=== PATIENT | female | born 1960 | race Two or more races ===

== ENCOUNTER 2021-02-28 13:50 | Outpatient (REF) | payer MEDICAID, SELFPAY ==
--- NOTE | ~2021-02-28 | MM_ITS ---
EXAMINATION: MM SCREENING DIGITAL BREAST TOMOSYNTHESIS, BILATERAL CLINICAL INFORMATION: Screening. Asymptomatic. The lifetime risk of breast cancer based on the Tyrer-Cuzick Model is 5.2%. COMPARISON: Mammography: August 31, 2017 and studies dating back to April 14, 2010 TECHNIQUE: Digital breast tomosynthesis is performed in both the craniocaudal and mediolateral oblique views along with computer-aided detection (CAD). Synthesized 2D images are generated from the tomosynthesis. FINDINGS: The breasts are heterogeneously dense, which may obscure small masses (ACR BI-RADS breast composition Category c). There is a stable parenchymal pattern within the right breast. Within the upper outer aspect of the left breast there is a grouping of calcifications for which further evaluation with spot magnification views in craniocaudal and 90 degree mediolateral views is recommended. MM/MM tomosynthesis screening BI IMPRESSION: Left breast calcifications for further evaluation as described. ASSESSMENT: BI-RADS 0: Incomplete - Need Additional Imaging Evaluation RECOMMENDATION: 1. Additional views of the left breast 2. Targeted ultrasound if warranted after review of the additional views. 3. Radiology department staff will contact the patient for additional imaging. This patient's information was entered into a reminder system with a target due date for their next mammogram.
== END 2021-02-28 13:51 | disposition home or self-care (01) ==
LOC: HO.MAMMO 13:50
PROVIDERS: PCP Internal Medicine; Visit Provider Internal Medicine
DX: Z12.31 Encounter for screening mammogram for malignant neoplasm of breast (principal)
CPT/HCPCS: 77063; 77067

== ENCOUNTER 2021-03-07 10:58 | Outpatient (REF) | payer MEDICAID, SELFPAY ==
--- NOTE | ~2021-03-07 | MM_ITS ---
EXAMINATION: MM DIAGNOSTIC DIGITAL MAMMOGRAPHY, LEFT CLINICAL INFORMATION: Calcifications. COMPARISON: Mammography: 02/28/2021 and studies dating back to 10/19/2011 TECHNIQUE: Digital mammography is performed in the following views: Spot magnification views of the left breast in craniocaudal and 90-degree mediolateral views. FINDINGS: The breasts are heterogeneously dense, which may obscure small masses (ACR BI-RADS breast composition Category c). The grouping of calcifications within the upper outer aspect of the left breast have indeterminate features, and stereotactic core biopsy is recommended. Results are discussed with the patient at time of visit. [facility] patient navigator called the above recommendation to the referring provider's office, [place]. MM/MM added views LT IMPRESSION: Indeterminate grouping of calcifications about the upper outer aspect of the left breast for which stereotactic core biopsy is recommended. ASSESSMENT: BI-RADS 4: Suspicious. RECOMMENDATION: Stereotactic core biopsy left breast calcifications. This patient's information was entered into a reminder system with a target due date for their next mammogram.
== END 2021-03-07 10:59 | disposition home or self-care (01) ==
LOC: HO.MAMMO 10:58
PROVIDERS: Visit Provider Internal Medicine
DX: R92.1 Mammographic calcification found on diagnostic imaging of breast (principal)
CPT/HCPCS: 77065

== ENCOUNTER 2021-03-13 09:11 | Outpatient (REF) | payer MEDICAID, SELFPAY ==
--- NOTE | ~2021-03-13 | MM_ITS ---
EXAMINATION: STEREOTACTIC TOMOSYNTHESIS-GUIDED VACUUM-ASSISTED BREAST BIOPSY, LEFT SPECIMEN RADIOGRAPH, LEFT POST PROCEDURE DIGITAL MAMMOGRAM, LEFT CLINICAL INFORMATION: Grouped coarse calcifications mid 1:00 left breast. COMPARISON: Mammography 03/07/2021, 02/28/2021, 08/31/2017. TECHNIQUE/PROCEDURE: Informed consent was obtained from the patient after discussion of the benefits, risks, and alternatives to biopsy today. Patient appeared to understand. Gave opportunity for questions. Patient signed consent form. BIOPSY TABLE: [employer]one Biopsy System. LESION: Grouped coarse calcifications mid 1:00 position, suspect fibroadenomatous. LOCAL ANESTHESIA: 5 mL 1% lidocaine; 10 mL 1% lidocaine with epinephrine. DERMATOTOMY: Single skin rodirgo dermatotomy performed. NEEDLE: [employer] 9-gauge vacuum assisted core biopsy device. APPROACH: craniocaudal. TARGETING: Digital breast tomosynthesis used for targeting. CORES: 6. CLIP: [employer] T-shaped marker. SPECIMEN RADIOGRAPH: Specimen radiograph is taken in separate room using digital mammography. The index calcifications are in the excised cores. There are at least 10 calcifications in the cores. POST PROCEDURE UNILATERAL DIGITAL MAMMOGRAM: The post biopsy mammogram is performed in separate room using separate digital mammography equipment from the biopsy procedure. CC and ML views are obtained. There are scattered areas of fibroglandular density (breast composition category: b). The clip marker is in position. The calcifications are markedly decreased at the biopsy site. No gross hematoma. The patient tolerated the procedure well. No immediate complications. Home instructions reviewed with the patient. Final pathology results are pending. MM/MM stereotactic biopsy LT IMPRESSION: 1. Digital tomosynthesis-guided core biopsy left breast with clip placement. 2. Specimen radiograph taken and post procedure mammogram. There is satisfactory positioning of the biopsy clip. 3. Final pathology results pending. An addendum report will be issued.
== END 2021-03-13 09:12 | disposition home or self-care (01) ==
LOC: HO.MAMMO 09:11
PROVIDERS: PCP Internal Medicine; Visit Provider Surgery
DX: R92.1 Mammographic calcification found on diagnostic imaging of breast (principal)
CPT/HCPCS: 19081; 88305; 99202; A4648

== ENCOUNTER 2022-08-28 11:57 | Outpatient (REF) | payer MEDICAID, SELFPAY ==
--- NOTE | ~2022-08-28 | XR_ITS ---
EXAMINATION: XR KNEE, RIGHT CLINICAL INFORMATION: Right knee pain COMPARISON: None available. TECHNIQUE: Four views of the right knee. FINDINGS: No acute fracture or dislocation. There is chondrocalcinosis of the bilateral tibiofemoral compartments which may reflect CPPD arthropathy. No large effusion. XR/XR knee RT 4V IMPRESSION: Chondrocalcinosis of the bilateral tibiofemoral compartments which may reflect CPPD arthropathy. No large effusion. No acute fracture or dislocation.
--- NOTE | ~2022-08-28 | XR_ITS ---
EXAMINATION: XR HAND, RIGHT CLINICAL INFORMATION: Right hand pain COMPARISON: None available. TECHNIQUE: PA, lateral, and oblique views of the right hand. FINDINGS: No acute fracture or dislocation. Degenerative changes of the first IP joint with joint space narrowing and osteophytosis. XR/XR hand RT min 3V IMPRESSION: No acute fracture or dislocation. Degenerative changes of the first IP joint.
== END 2022-08-28 11:58 | disposition home or self-care (01) ==
LOC: HO.XRAY 11:57
PROVIDERS: PCP Internal Medicine; Visit Provider Internal Medicine
DX: Z13.89 Encounter for screening for other disorder (principal)
CPT/HCPCS: 73130; 73564

== ENCOUNTER 2022-09-18 09:51 | Outpatient (REF) | payer MEDICAID, SELFPAY ==
--- NOTE | ~2022-09-18 | US_ITS ---
EXAMINATION: US ABDOMEN LIMITED CLINICAL INFORMATION: Elevated LFTs. COMPARISON: Ultrasound abdomen 07/11/2007 and 03/18/2007. TECHNIQUE: Real-time imaging of the right upper quadrant abdominal viscera. FINDINGS: PANCREAS: Normal. LIVER: Enlarged measuring 19.5 cm in length. The liver contour is normal. Increased parenchymal echogenicity. No focal hepatic lesion. There is no intrahepatic biliary duct dilatation seen. GALLBLADDER: Normal. The gallbladder is physiologically distended without evidence of stones, sludge, polyps, wall thickening or pericholecystic fluid. COMMON BILE DUCT: Normal in caliber measuring 0.4 cm in diameter. RIGHT KIDNEY: Normal. No hydronephrosis. No renal calculi or focal parenchymal lesions. The kidney measures 11.2 cm in maximum dimension. FREE FLUID: None. US/US abdomen limited IMPRESSION: Hepatomegaly with increased parenchymal echogenicity which is nonspecific but could be seen in the setting of hepatic steatosis or hepatocellular disease.
== END 2022-09-18 09:52 | disposition home or self-care (01) ==
LOC: HO.HMGCX 09:51
PROVIDERS: PCP Internal Medicine; Visit Provider Internal Medicine
DX: R79.89 Other specified abnormal findings of blood chemistry (principal)
CPT/HCPCS: 76705

== ENCOUNTER 2022-10-23 13:04 | Outpatient (REF) | payer MEDICAID, SELFPAY ==
--- NOTE | ~2022-10-23 | MM_ITS ---
EXAMINATION: MM SCREENING DIGITAL BREAST TOMOSYNTHESIS, BILATERAL CLINICAL INFORMATION: Screening. Asymptomatic. Benign left stereotactic biopsy 03/13/2021 (fibroadenomatous change and calcifications. No atypia or malignancy). The lifetime risk of breast cancer based on the Tyrer-Cuzick Model is 5%. COMPARISON: Mammography: 03/13/2021, 03/07/2021, 02/28/2021, 08/31/2017, 09/12/2013 TECHNIQUE: Digital breast tomosynthesis is performed in both the craniocaudal and mediolateral oblique views along with computer-aided detection (CAD). Synthesized 2D images are generated from the tomosynthesis. FINDINGS: The breasts are heterogeneously dense, which may obscure small masses (ACR BI-RADS breast composition Category c). There are no significant masses, abnormal calcifications, or other abnormalities. Parenchymal pattern is similar to prior studies. There is no developing density or architectural abnormality. There is biopsy clip marker mid upper outer left breast with substantially decreased adjacent calcifications consistent with the biopsy. The axilla and skin contours are unremarkable. No significant changes. MM/MM tomosynthesis screening BI IMPRESSION: No mammographic evidence of malignancy. ASSESSMENT: BI-RADS 2: Benign RECOMMENDATION: Routine annual mammography screening. This patient's information was entered into a reminder system with a target due date for their next mammogram.
== END 2022-10-23 13:05 | disposition home or self-care (01) ==
LOC: HO.MAMMO 13:04
PROVIDERS: PCP Internal Medicine; Visit Provider Internal Medicine
DX: Z12.31 Encounter for screening mammogram for malignant neoplasm of breast (principal)
CPT/HCPCS: 77063; 77067

== ENCOUNTER 2023-08-24 11:45 | Outpatient (REF) | payer MEDICAID, SELFPAY ==
[2023-08-24 13:12] LABS: MANUAL DIFF FLAG NO
[2023-08-24 13:32] LABS: Basophils Percent Auto 0.5 % (0-2); Eosinophils Percent Auto 0.5 % (0-4); Hematocrit 44.9 % (37.0-47.0); Hemoglobin 15.1 g/dl (12.0-16.0); Imm Gran Abs Auto 0.03 X10*3/uL (0.00-0.03); Imm Gran Pct Auto 0.4 % (0.0-0.4); Lymphocytes Absolute Auto 2.5 X10*3/uL (1.2-4.9); Lymphocytes Percent Auto 32.8 % (20-40); Mean Corpuscular HGB Conc 33.6 g/dl (31.0-35.0); Mean Corpuscular Hemoglobin 30.3 pg (27.0-33.0); Mean Platelet Volume 11.4 fL (9.4-12.3); Monocytes Absolute Auto 0.7 X10*3/uL (0.1-1.2); Monocytes Percent Auto 9.1 % (2-11); Neutrophils Absolute Auto 4.2 x10*3/uL (2.0-8.3); Neutrophils Percent Auto 56.7 % (45-73); Platelet Count 192 X10*3/uL (160-400); Red Blood Count 4.99 X10*6/uL (4.20-5.50); Red Cell Distribution Width 12.3 % (11.0-16.0); White Blood Count 7.5 X10*3/uL (4.8-10.8)
[2023-08-24 14:10] LABS: Alanine Aminotransferase 137 U/L (0-31); Albumin Level 4.2 g/dL (3.5-5.0); Alkaline Phosphatase 149 U/L (39-117); Anion Gap 14 (12-20); Aspartate Amino Transferase 113 U/L (5-31); Bilirubin Direct 0.3 mg/dL (0.0-0.5); Bilirubin Total 0.8 mg/dL (0.0-1.0); Blood Urea Nitrogen 15 mg/dL (9-16); Calcium 10.8 mg/dL (8.4-10.2); Carbon Dioxide 28 mmol/L (22-29); Chloride 100 mmol/L (96-108); Cholesterol 132 mg/dL (<200); Estimated Glomerular Filt Rate > 60; Glucose Random 203 mg/dL (60-115); HDL Cholesterol 34 mg/dL (>40); LDL Cholesterol Calculated 80 mg/dL (<100); Potassium 3.6 mmol/L (3.3-5.1); Sodium 138 mmol/L (135-145); TSH reflex Free T4 1.22 uIU/mL (0.32-4.0); Total Protein 8.4 g/dL (6.5-8.0); Triglycerides 92 mg/dL (<150)
[2023-08-24 14:25] LABS: Reflex LDLD? No
== END 2023-08-24 11:46 | disposition home or self-care (01) ==
LOC: HO.HHCL 11:45
PROVIDERS: Visit Provider Internal Medicine
DX: I10 Essential (primary) hypertension (principal); R79.89 Other specified abnormal findings of blood chemistry
CPT/HCPCS: 36415; 80048; 80061; 80076; 84443; 85025

== ENCOUNTER 2023-09-08 11:10 | Outpatient (REF) | payer MEDICAID, SELFPAY ==
[2023-09-08 13:40] LABS: Parathyroid Hormone Intact 46.3 pg/mL (8.7-77.1)
[2023-09-08 13:49] LABS: Rheumatoid Factor < 13.0 IU/mL (<15.0)
[2023-09-08 14:04] LABS: Erythrocyte Sedimentation Rate 19 MM/HR (0-20)
[2023-09-08 14:18] LABS: C Reactive Protein 0.38 mg/dL (< or = 0.50); Ferritin 975 ng/mL (10-250); Uric Acid 3.3 mg/dL (2.4-5.7)
[2023-09-09 10:48] LABS: Thyroglobulin Antibodies <1 IU/mL (< or = 1); Thyroid Peroxidase Antibodies 2 IU/mL (<9)
[2023-09-09 14:38] LABS: Cyclic Citrullinated Peptide <16 UNITS
[2023-09-09 19:19] LABS: Transferrin 251 mg/dL (188-341)
[2023-09-09 20:49] LABS: SM/Ribonucleoprotein Ab <1.0 NEG AI (<1.0 NEG); Smith Protein <1.0 NEG AI (<1.0 NEG)
[2023-09-09 22:49] LABS: Prot Elec - Albumin 4.2 g/dL (3.8-4.8); Prot Elec - Alpha1 0.3 g/dL (0.2-0.3); Prot Elec - Alpha2 0.8 g/dL (0.5-0.9); Prot Elec - Beta 1 0.5 g/dL (0.4-0.6); Prot Elec - Beta 2 0.6 g/dL (0.2-0.5); Prot Elec - Gamma 1.6 g/dL (0.8-1.7); Prot Elec - Total Protein 8.1 g/dL (6.1-8.1)
[2023-09-10 09:43] LABS: Mitochondrial Antibodies NEGATIVE (NEGATIVE)
[2023-09-10 11:58] LABS: IgA 572 mg/dL (70-320); IgG 1921 mg/dL (600-1540); IgM 95 mg/dL (50-300)
[2023-09-13 06:13] LABS: Smooth Muscle Antibody 22 U (<20)
[2023-09-13 12:03] LABS: Anti Nuclear Antibody Pattern Nuclear, Homogeneous; Anti Nuclear Antibody Screen POSITIVE (NEGATIVE); Anti Nuclear Antibody Titer 1:40 titer
== END 2023-09-08 11:11 | disposition home or self-care (01) ==
LOC: HO.LAB 11:10
PROVIDERS: PCP Internal Medicine; Visit Provider Nurse Practitioner Family
DX: M11.261 Other chondrocalcinosis, right knee (principal); M25.561 Pain in right knee; R79.89 Other specified abnormal findings of blood chemistry; G89.29 Other chronic pain
CPT/HCPCS: 36415; 82550; 82728; 82784; 83970; 84165; 84466; 84550; 85652; 86015; 86038; 86039; 86140; 86200; 86235; 86334; 86376; 86381; 86431; 86800; 99212

== ENCOUNTER 2023-09-08 11:10 | Outpatient (AMB) | payer MEDICAID, SELFPAY ==
--- NOTE | 2023-09-08 11:12 | MHC.OFFVIS ---
Intake Vital Signs 09/08/23 11:13 Height 5 ft 2 in Weight 158 lb 4.67 oz BMI 28.9 BP 134/82 Blood Pressure Location Rt brachial Position Sitting Pulse 105 H Pulse Source Pulse Oximeter Temp 97 F Temp Source Skin Pulse Oximetry (%) 98 Oxygen Delivery Method Room Air Intake Visit Reasons: Right knee pain/LVM Intake Note: New patient, externally referred by Dr. Skinner at [facility], presents today for consult on chronic right knee pain. [employer]eles[employer] Advisor Required: No Accompanied by: Self / Same As Patient Allergies aspirin Allergy (Unknown, Verified 09/08/23 11:17) Gastrointestinal Upset HPI HPI Comments History of Present Illness Details Ms. Morrow, 62 yoF presents,on referral from her PCP, for evaluation of chronic right knee pain. The patient is very active and has no other complaints. She had an XRAY which shows chondrocalcinosis. She denies red, warm swollen joints, uveitiis, recent infection, UTI, PsO. She denies other s/s of CTD. [facility] Medical History (Updated 09/15/23 @ 23:38 by ALEN Enriquez-) Chondrocalcinosis of right knee Right anterior knee pain Elevated LFTs Pap 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 Persistent depressive disorder Essential (primary) hypertension Chronic pain of right knee Hypertension Social History Alcohol intake: current Alcohol intake frequency: holidays/special occasions only Patient Tobacco Use Status: Never used Tobacco Female Reproductive History Menstrual Age of Menarche: 15 Review of Systems Const All systems reviewed & are unremarkable except as noted in HPI and below Physical Exam Vital Signs: Last Vital Signs Temp 97 F 09/08/23 11:13 Pulse 105 H 09/08/23 11:13 BP 134/82 09/08/23 11:13 Pulse Ox 98 09/08/23 11:13 Oxygen Delivery Method Room Air 09/08/23 11:13 BMI result Body Mass Index 28.9 APPEARANCE: Patient in no acute distress EYES no redness, normal EARS:? External ear normal. NOSE/SINUS:? Airflow through both nares, no nasal discharge, no bleeding THROAT:? Oral mucosa moist, no ulcerations NECK:? No thyromegaly or masses, no adenopathy, trachea midline. HEART:? Regular rhythm, S1-S2 heard, no murmurs, rubs or gallops. LUNG:? Clear to percussion and auscultation EXTREMITIES:? No edema, no calf tenderness, normal peripheral pulses. NEURO:? Oriented and alert x3.? No focal weakness.? Reflexes symmetric.? Gait normal. SKIN:? There are no skin lesions evident. No objective signs of Raynaud's phenomenon. JOINT EXAM: Cervical Spine:.? Full range of motion without pain; no tenderness. Thoracic Spine:.? No scoliosis.? No tenderness on palpation. Lumbar Spine:.? Alignment normal.? Full range of motion without pain, no tenderness. Chest Wall:.? No tenderness, swelling, increased warmth or erythema. Hands:.? Normal pain-free range of motion without tenderness, swelling, increased warmth or erythema. Able to make a full fist and has a good automotive manufacturer strength. Wrists:.? Normal pain-free range of motion without tenderness, swelling, increased warmth or erythema. Elbows:. Normal pain-free range of motion without tenderness, swelling, increased warmth or erythema. Shoulders:.?? Full range of motion without pain. No tenderness, weakness, swelling, increased warmth or erythema. Hips:.? Full range of motion without pain. Hip bursa:.? No tenderness. Knees:.?? Normal pain-free range of motion without tenderness, swelling, increased warmth or erythema.? There is no effusion or crepitation. Mild tenderness to Left knee joint medial line on palpation. no crepitus Ankles:.? Normal pain-free range of motion without tenderness, swelling, increased warmth or erythema. Feet:.? Normal pain-free range of motion without tenderness, swelling, increased warmth or erythema. Tender points:? No tenderness to digital palpation at the occiput, trapezius, second rib, lateral epicondyle, knees, greater trochanter and gluteal area bilaterally. Assessment & Plan Assessment & Plan (1) Right anterior knee pain: Code(s): M25.561 - Pain in right knee (2) Chondrocalcinosis of right knee: Code(s): M11.261 - Other chondrocalcinosis, right knee (3) Elevated LFTs: Code(s): R79.89 - Other specified abnormal findings of blood chemistry Plan The patient says her knees mainly hurt when she climbs stairs. She has received steroid injections but the pain returns within 1 week. I discussed with the patient that per imaging there is possibly Psuedogout in her knees - calcium crystal deposits that can irritate the knee and cause pain. She denies the typical gout-like features of erythema, warmth and swelling. CPPD is a challenge to treat and usually evidenced by a flare. Prednisone and colchicine can be used to treat flares, more successes with prednisone. No OA on imaging. I will do further evaluation with labs to rule out other inflammatory processes. CPPD can also be seen in the context of iron disorders, so I will obtain the ferritin levels. The patient also has elevated liver enzymes. She says she is not aware. We will recheck. I spent 45 minutes reviewing history, evaluating patient, and documenting Orders: Orders Anti Extractable Nuclear Ag 09/08/23 M25.561 - Pain in right knee C Reactive Protein 09/08/23 M25.561 - Pain in right knee Creatine Kinase Total 09/08/23 M25.561 - Pain in right knee Erythrocyte Sedimentation Rate 09/08/23 M25.561 - Pain in right knee Immunofixation Pnl, Serum 09/08/23 M25.561 - Pain in right knee Protein Electrophoresis, Serum 09/08/23 M25.561 - Pain in right knee Thyroglobulin Antibodies 09/08/23 M25.561 - Pain in right knee Parathyroid Hormone Intact 09/08/23 M25.561 - Pain in right knee Rheumatoid Factor 09/08/23 M25.561 - Pain in right knee Cyclic Citrullinated Peptide 09/08/23 M25.561 - Pain in right knee PT Evaluation and Treatment 09/08/23 M25.561 - Pain in right knee GABRIELLA Reflex Titer and Pattern 09/08/23 M25.561 - Pain in right knee Immunoglobulins,IgG IgA IgM 09/08/23 M25.561 - Pain in right knee Uric Acid 09/08/23 M25.561 - Pain in right knee Thyroid Peroxidase Antibodies 09/08/23 M25.561 - Pain in right knee Mitochondrial Antibody 09/08/23 M25.561 - Pain in right knee Smooth Muscle Antibody 09/08/23 M25.561 - Pain in right knee Ferritin 09/08/23 M11.261 - Other chondrocalcinosis, right knee Coding Level of Care Code New Pt Level 4 (94185) Diagnoses Right anterior knee pain M25.561 Chondrocalcinosis of right knee M11.261 Elevated LFTs R79.89
[2023-09-08 11:13] VITALS: BP 134/82; PULSE 105; TEMP 36.1; O2SAT 98; BMI 28.9
== END 2023-09-08 11:52 | disposition home or self-care (01) ==
PROVIDERS: PCP Internal Medicine; Visit Provider Nurse Practitioner Family
DX: M25.561 Pain in right knee (principal); M11.261 Other chondrocalcinosis, right knee; R79.89 Other specified abnormal findings of blood chemistry
CPT/HCPCS: 99204

== ENCOUNTER 2023-12-03 12:47 | Outpatient (REF) | payer MEDICAID, SELFPAY ==
[2023-12-03 16:55] LABS: Anion Gap 18 (12-20); Blood Urea Nitrogen 16 mg/dL (9-16); Calcium 10.4 mg/dL (8.4-10.2); Carbon Dioxide 24 mmol/L (22-29); Chloride 95 mmol/L (96-108); Estimated Glomerular Filt Rate > 60; Magnesium 2.1 mg/dL (1.6-2.6); Phosphorus 2.8 mg/dL (2.7-4.5); Potassium 4.5 mmol/L (3.3-5.1); Sodium 132 mmol/L (135-145)
[2023-12-03 18:11] LABS: Glucose Random 627 mg/dL (60-115)
== END 2023-12-03 12:48 | disposition home or self-care (01) ==
LOC: HO.HHCL 12:47
PROVIDERS: Visit Provider Internal Medicine
DX: R25.2 Cramp and spasm (principal)
CPT/HCPCS: 36415; 80048; 83735; 84100

== ENCOUNTER 2023-12-04 10:11 | Outpatient (REF) | payer MEDICAID, SELFPAY | END 2023-12-04 10:12 | disposition home or self-care (01) | LOC: HO.LAB 10:11 | PROVIDERS: Absent Provider Internal Medicine; PCP Internal Medicine; Visit Provider Family Medicine | DX: Z13.89 Encounter for screening for other disorder (principal) ==

== ENCOUNTER 2023-12-04 11:01 | Emergency (ER) | payer MEDICAID, SELFPAY ==
[2023-12-04 11:07] VITALS: BP 172/102; PULSE 85; RESP 18; TEMP 36.6; O2SAT 98; BMI 25.1
--- NOTE | 2023-12-04 11:07 | ED.GENADULT ---
HPI - General Adult General Chief complaint: Recheck/Abnormal Lab/Rx Stated complaint: high bs Time Seen by Provider: 12/04/23 11:39 Source: patient and family (Daughter) Mode of arrival: ambulatory Limitations: no limitations History of Present Illness ED Provider: DR. Rosales HPI narrative: A 62-year-old female with no known history of DM had a routine blood workup at her primary doctor and found to be hyperglycemic and patient was told to come to the ED. Patient currently not taking medication for diabetes, been having increased thirst increased frequency urination without dysuria or frequency urination, patient also lost 30 lb unintentionally over the past few months. Patient otherwise has no complaints. Related Data Home Medications ?Medication ?Instructions ?Recorded ?Confirmed hydrochlorothiazide 25 mg tablet 25 mg PO DAILY 03/13/21 lisinopril 40 mg tablet 40 mg PO DAILY 03/13/21 naproxen 500 mg tablet,delayed 500 mg PO BID 03/13/21 release (EC-Naproxen) Previous Rx's ?Medication ?Instructions ?Recorded metformin 500 mg tablet 500 mg PO BID #20 tabs 12/04/23 Allergies Allergy/AdvReac Type Severity Reaction Status Date / Time aspirin Allergy Unknown Gastrointestinal Verified 12/04/23 11:09 Upset Review of Systems Review of Systems: All other systems are reviewed and are negative Constitutional: Reports as per HPI and Reports no additional constitutional complaints Eyes: Reports as per HPI and Reports no additional eye complaints Reports system reviewed and no additional complaints, except as documented Cardiovascular: Reports as per HPI and Reports no additional cardiovascular complaints Respiratory: Reports as per HPI and Reports no additional respiratory complaints Gastrointestinal: Reports as per HPI and Reports no additional gastrointestinal complaints Genitourinary: Reports no additional female genitourinary complaints Musculoskeletal: Reports no additional musculoskeletal complaints Skin/Breast: Reports system reviewed and no additional complaints, except as docu Psychiatric: Reports no additional psychiatric complaints Endocrine: Reports no additional endocrine complaints Hematologic/Lymphatic: Reports no additional hematologic/lymphatic complaints Allergic/Immunologic: Reports no additional allergic/immunologic complaints Reports system reviewed and no additional complaints, except as documented and Reports Abnormal speech present [facility] Past Medical History Medical History Chondrocalcinosis of right knee Right anterior knee pain Elevated LFTs Pap 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 Persistent depressive disorder Essential (primary) hypertension Chronic pain of right knee Hypertension Social History Social History Alcohol intake: current Alcohol intake frequency: does not drink Patient Tobacco Use Status: Never used Tobacco Smoked in Last 30 Days: No Use of substances other than those prescribed or required for medical reasons: No Substance Use Type: Marijuana Substance Use Frequency: Occasionally Last Used Substance: Weeks (ago) Advance Directives: No Advance Directives Information Provided: No Do you have a plan to hurt others: No Plan Physical Exam ED Vital Signs: Vital Signs - 24 hr 12/04/23 11:07 12/04/23 12:16 Temperature 98 F 98.6 F Pulse Rate 85 80 Respiratory Rate 18 18 Blood Pressure 172/102 H 167/87 H Pulse Oximetry 98 98 Oxygen Delivery Method Room Air BMI result Body Mass Index 25.1 Vital signs have been reviewed and appear to be correct. Blood pressure elevated. Heart rate normal. Respiratory rate normal. Temperature normal. Oxygen saturation normal. Appearance: Alert. Oriented X3. No acute distress. Head: Normal external exam. Normocephalic. Atraumatic. No Ramsey signs noted. No raccoon eyes noted Eyes: PERRLA. EOMI. Conjunctiva and sclera normal. Eyelids normal. ENT: TM's Normal. Pharynx normal. Uvula midline. Moist mucous membranes. No trismus noted. No drooling noted. No muffled voice noted. Neck: Normal inspection. Neck supple. FROM. No adenopathy. Thyroid Normal. No meningeal signs. No neck mass noted. CVS: Normal heart rate and rhythm. Heart sound normal. No murmurs noted. Pulses normal throughout. Respiratory: No respiratory distress. Painless inspiration. Breath sounds normal. No wheezes/rales/rhonchi noted. Chest nontender. No accessory muscle usage noted or decreased air movement noted. Abdomen: Soft and nontender. Bowel sounds normal in all 4 quadrants. No distention noted. No organomegaly noted. No visible injury noted. Back: No CVA tenderness. Full range of motion noted. Skin: Skin warm and dry. Normal skin color. Normal skin turgor. No rashes/lesions/lacerations noted. Extremities: No lower extremity edema. Extremities exhibit normal range of motion. Extremities nontender. Neuro: Oriented X 3. Cranial nerve exam: II-XII are grossly intact No motor deficit. No sensory deficit. Reflexes normal. Course Course Course Narrative: This is a rapid medical exam performed by Kailash Peck NP: Additional HPI, ROS, PE not included below will be deferred to primary provider. Patient is a 62-year-old female with no prior history of DM presenting to the ED after PCP called her and told her that her glucose was 627 on labs drawn yesterday. Reports increased thirst and urination. Lost around 30lbs over the last four months. BP elevated in triage but patient did not take her BP medication this am. Plan: labs, UA Reevaluation(s) Reevaluation #1: New onset diabetes, will start the patient on metformin 500 mg b.i.d., patient has an appointment with PCP in 2 days, patient was instructed to drink plenty of water and cut down on the carbohydrate, patient was provided with instruction of nutrition and exercise with diabetes. Time: 15:29 Medications Administered Discontinued Medications Generic Name Dose Route Start Last Admin Trade Name Freq PRN Reason Stop Dose Admin Sodium Chloride 1,000 mls @ 999 mls/hr 12/04/23 11:44 12/04/23 14:41 Ns IV 12/04/23 12:44 Infused .Q1H1M ONE Infusion Metformin HCl 1,000 mg 12/04/23 13:27 12/04/23 14:39 Metformin Hcl Er 500 Mg Tab.Er.24h PO 12/04/23 13:28 1,000 mg ONCE ONE Administration Medical Decision Making Differential Diagnosis Differential Diagnoses: The differential diagnosis associated with the presentation includes (New onset diabetes, electrolyte derangement, UTI, severe anemia.) Admission/Observation Consideration of admission/observation: Escalation of care including admission/observation considered Lab Data MDM Lab Attestation statement: I reviewed the patient's lab results. 12/04/23 11:52 12/04/23 11:52 Labs: Lab Results 12/04/23 12/04/23 12/04/23 Range/Units 11:52 11:56 12:20 WBC 7.0 (4.8-10.8) X10*3/uL RBC 4.86 (4.20-5.50) X10*6/uL Hgb 14.7 (12.0-16.0) g/dl Hct 43.5 (37.0-47.0) % MCV 89.5 (80.0-98.0) fL MCH 30.2 (27.0-33.0) pg MCHC 33.8 (31.0-35.0) g/dl RDW 12.1 (11.0-16.0) % Plt Count 173 (160-400) X10*3/uL MPV 11.2 (9.4-12.3) fL Immature Gran % (Auto) 0.4 (0.0-0.4) % Neut % (Auto) 69.3 (45-73) % Lymph % (Auto) 22.2 (20-40) % [place] % (Auto) 7.3 (2-11) % Eos % (Auto) 0.1 (0-4) % Baso % (Auto) 0.7 (0-2) % Lymph # (Auto) 1.6 (1.2-4.9) X10*3/uL [place] # (Auto) 0.5 (0.1-1.2) X10*3/uL Eos # (Auto) 0.0 (0.0-0.4) X10*3/uL Baso # (Auto) 0.1 (0.0-0.2) X10*3/uL Abs Immat Gran (auto) 0.03 (0.00-0.03) X10*3/uL Absolute Neuts (auto) 4.8 (2.0-8.3) x10*3/uL Absolute Nucleated RBC 0.000 (0.0-0.012) X10*3/uL Nucleated RBC % (auto) 0.0 (0.0-0.2) /100WBC VBG pH 7.45 H (7.32-7.43) VBG pCO2 29 mmHg VBG pO2 55 mmHg VBG HCO3 20 L (22-26) mmol/L VBG O2 Saturation 85.0 % VBG Base Excess -1.8 mmol/L Sodium 132 L (135-145) mmol/L Potassium 4.5 (3.3-5.1) mmol/L Chloride 98 (96-108) mmol/L Carbon Dioxide 20 L (22-29) mmol/L Anion Gap 19 (12-20) BUN 11 (9-16) mg/dL Creatinine 0.82 (0.5-1.4) mg/dL Estim Creat Clear Calc 62.4 Estimated GFR > 60 POC Glucose (60-115) mg/dL Random Glucose 386 H* (60-115) mg/dL Estimat Average Glucose TNP Hemoglobin A1c % > 14.0 H (<6.0) % Calcium 10.0 (8.4-10.2) mg/dL Total Bilirubin 1.1 H (0.0-1.0) mg/dL AST 251 H (5-31) U/L ALT 158 H (0-31) U/L Alkaline Phosphatase 146 H (39-117) U/L Total Protein 8.2 H (6.5-8.0) g/dL Albumin 4.0 (3.5-5.0) g/dL Beta-Hydroxybutyrate 4.54 H (0.02-0.27) mmol/L Urine Color Yellow Urine Appearance Clear Urine pH 5.5 (5.0-9.0) Ur Specific [place] >= 1.030 H (1.005-1.025) Urine Protein Trace (Neg-Trace) mg/dL Urine Glucose (UA) >=1000 H (Negative) mg/dL Urine Ketones >=160 (Negative) mg/dL Urine Blood Trace H (Negative) Urine Nitrite Negative (Negative) Ur Leukocyte Esterase Negative (Negative) Urine RBC 6-10 H (0-2) /HPF Urine WBC 0-5 (0-5) /HPF Ur Squamous Epith Cells 0-2 (0-2) /HPF Urine Bacteria None Seen (None Seen) Hyaline Casts 0-2 (0-2) /LPF 12/04/23 Range/Units 14:49 WBC (4.8-10.8) X10*3/uL RBC (4.20-5.50) X10*6/uL Hgb (12.0-16.0) g/dl Hct (37.0-47.0) % MCV (80.0-98.0) fL MCH (27.0-33.0) pg MCHC (31.0-35.0) g/dl RDW (11.0-16.0) % Plt Count (160-400) X10*3/uL MPV (9.4-12.3) fL Immature Gran % (Auto) (0.0-0.4) % Neut % (Auto) (45-73) % Lymph % (Auto) (20-40) % [place] % (Auto) (2-11) % Eos % (Auto) (0-4) % Baso % (Auto) (0-2) % Lymph # (Auto) (1.2-4.9) X10*3/uL [place] # (Auto) (0.1-1.2) X10*3/uL Eos # (Auto) (0.0-0.4) X10*3/uL Baso # (Auto) (0.0-0.2) X10*3/uL Abs Immat Gran (auto) (0.00-0.03) X10*3/uL Absolute Neuts (auto) (2.0-8.3) x10*3/uL Absolute Nucleated RBC (0.0-0.012) X10*3/uL Nucleated RBC % (auto) (0.0-0.2) /100WBC VBG pH (7.32-7.43) VBG pCO2 mmHg VBG pO2 mmHg VBG HCO3 (22-26) mmol/L VBG O2 Saturation % VBG Base Excess mmol/L Sodium (135-145) mmol/L Potassium (3.3-5.1) mmol/L Chloride (96-108) mmol/L Carbon Dioxide (22-29) mmol/L Anion Gap (12-20) BUN (9-16) mg/dL Creatinine (0.5-1.4) mg/dL Estim Creat Clear Calc Estimated GFR POC Glucose 270 H (60-115) mg/dL Random Glucose (60-115) mg/dL Estimat Average Glucose Hemoglobin A1c % (<6.0) % Calcium (8.4-10.2) mg/dL Total Bilirubin (0.0-1.0) mg/dL AST (5-31) U/L ALT (0-31) U/L Alkaline Phosphatase (39-117) U/L Total Protein (6.5-8.0) g/dL Albumin (3.5-5.0) g/dL Beta-Hydroxybutyrate (0.02-0.27) mmol/L Urine Color Urine Appearance Urine pH (5.0-9.0) Ur Specific [place] (1.005-1.025) Urine Protein (Neg-Trace) mg/dL Urine Glucose (UA) (Negative) mg/dL Urine Ketones (Negative) mg/dL Urine Blood (Negative) Urine Nitrite (Negative) Ur Leukocyte Esterase (Negative) Urine RBC (0-2) /HPF Urine WBC (0-5) /HPF Ur Squamous Epith Cells (0-2) /HPF Urine Bacteria (None Seen) Hyaline Casts (0-2) /LPF Discharge Plan Discharge Clinical Impression: New onset type 2 diabetes mellitus Patient Disposition: Home, Self-Care Instructions: Diabetes and Nutrition (ED), Diabetes and Exercise (ED) Prescriptions: New metformin 500 mg tablet 500 mg PO BID Qty: 20 0RF No Action lisinopril 40 mg tablet 40 mg PO DAILY hydrochlorothiazide 25 mg tablet 25 mg PO DAILY naproxen [EC-Naproxen] 500 mg tablet,delayed release (DR/EC) 500 mg PO BID Referrals: To Forrest MD [Primary Care Provider] - Print Language: Macedonian
--- NOTE | 2023-12-04 11:10 | PC.NURSE ---
TOOK OWN BP MED IN TRIAGE
[2023-12-04 11:58] LABS: MANUAL DIFF FLAG NO
[2023-12-04 12:03] LABS: VBG Base Excess -1.8 mmol/L; VBG HCO3 20 mmol/L (22-26); VBG pCO2 29 mmHg; VBG pH 7.45 (7.32-7.43); VBG pO2 55 mmHg
[2023-12-04 12:04] LABS: Basophils Absolute Auto 0.1 X10*3/uL (0.0-0.2); Basophils Percent Auto 0.7 % (0-2); Eosinophils Percent Auto 0.1 % (0-4); Hematocrit 43.5 % (37.0-47.0); Hemoglobin 14.7 g/dl (12.0-16.0); Imm Gran Abs Auto 0.03 X10*3/uL (0.00-0.03); Imm Gran Pct Auto 0.4 % (0.0-0.4); Lymphocytes Absolute Auto 1.6 X10*3/uL (1.2-4.9); Lymphocytes Percent Auto 22.2 % (20-40); Mean Corpuscular HGB Conc 33.8 g/dl (31.0-35.0); Mean Corpuscular Hemoglobin 30.2 pg (27.0-33.0); Mean Corpuscular Volume 89.5 fL (80.0-98.0); Mean Platelet Volume 11.2 fL (9.4-12.3); Monocytes Absolute Auto 0.5 X10*3/uL (0.1-1.2); Monocytes Percent Auto 7.3 % (2-11); Neutrophils Absolute Auto 4.8 x10*3/uL (2.0-8.3); Neutrophils Percent Auto 69.3 % (45-73); Platelet Count 173 X10*3/uL (160-400); Red Blood Count 4.86 X10*6/uL (4.20-5.50); Red Cell Distribution Width 12.1 % (11.0-16.0)
[2023-12-04 12:06] LABS: Venous Blood Gas Refer to POC result
[2023-12-04] MEDS: 0.9 % Sodium Chloride 1,000 ML 999 ML IV (12:15)
[2023-12-04 12:16] VITALS: BP 167/87; PULSE 80; RESP 18; TEMP 37; O2SAT 98
[2023-12-04 12:26] LABS: Hemoglobin A1c % > 14.0 % (<6.0)
[2023-12-04 12:27] LABS: Alanine Aminotransferase 158 U/L (0-31); Alkaline Phosphatase 146 U/L (39-117); Anion Gap 19 (12-20); Aspartate Amino Transferase 251 U/L (5-31); Bilirubin Total 1.1 mg/dL (0.0-1.0); Blood Urea Nitrogen 11 mg/dL (9-16); Carbon Dioxide 20 mmol/L (22-29); Chloride 98 mmol/L (96-108); Creatinine Clr Calc Pharmacy 62.4; Estimated Glomerular Filt Rate > 60; Potassium 4.5 mmol/L (3.3-5.1); Sodium 132 mmol/L (135-145); Total Protein 8.2 g/dL (6.5-8.0)
[2023-12-04 12:27] LABS: Appearance Urine Clear; Color Urine Yellow; Glucose Urine UA >=1000 mg/dL (Negative); Leukocyte Esterase Urine Negative (Negative); Nitrite Urine Negative (Negative); PH 5.5 (5.0-9.0); Specific Gravity - Urine >= 1.030 (1.005-1.025); UMIC TRIGGER UACC YES; Urine Blood Trace (Negative); Urine Ketones >=160 mg/dL (Negative); Urine Protein Trace mg/dL (Neg-Trace)
[2023-12-04 12:28] LABS: Beta-Hydroxybutyrate 4.54 mmol/L (0.02-0.27)
[2023-12-04 12:32] LABS: Bacteria Urine None Seen (None Seen); Hyaline Casts Urine 0-2 /LPF (0-2); Squamous Epithelial Cell Urine 0-2 /HPF (0-2); WBC Urine 0-5 /HPF (0-5)
[2023-12-04 12:37] LABS: Glucose Random 386 mg/dL (60-115)
[2023-12-04] MEDS: metFORMIN HCl ER 500 MG TAB.ER.24H 1000 MG PO (14:39)
[2023-12-04 14:56] LABS: Glucose, Whole Blood 270 mg/dL (60-115)
[2023-12-04 15:50] VITALS: BP 150/80; PULSE 88; RESP 18; TEMP 36.8; O2SAT 98
== END 2023-12-04 15:51 | disposition home or self-care (01) ==
PROVIDERS: Physician Assistant; Registered Nurse Emergency; Emergency Provider Emergency Medicine; PCP Internal Medicine
DX: E11.9 Type 2 diabetes mellitus without complications (principal); I10 Essential (primary) hypertension; E78.5 Hyperlipidemia, unspecified; Z79.899 Other long term (current) drug therapy
CPT/HCPCS: 36415; 80053; 81001; 82010; 82803; 82947; 83036; 85025; 96360; 96361; 99284; 99285

== ENCOUNTER 2023-12-06 11:25 | Outpatient (REF) | payer MEDICAID, SELFPAY | END 2023-12-06 11:26 | disposition home or self-care (01) | LOC: HO.LNP 11:25 | PROVIDERS: PCP Internal Medicine; Visit Provider Obstetrics & Gynecology | DX: R87.610 Atypical squamous cells of undetermined significance on cytologic smear of cervix (ASC-US) (principal); R87.810 Cervical high risk human papillomavirus (HPV) DNA test positive | CPT/HCPCS: 57454; 88305; 88342; 88360 ==

== ENCOUNTER 2023-12-06 11:25 | Outpatient (AMB) | payer MEDICAID, SELFPAY ==
--- NOTE | 2023-12-06 11:30 | A.OFFVIS_ITS ---
Vital Signs 12/06/23 11:31 Height 5 ft 2 in Weight 136 lb 10.986 oz BMI 25.0 BP 132/86 Intake Visit Reasons: Colposcopy Assistant Portfolio Manager Required: No Information Interpreted: non-clinical & clinical Radio Interference Trouble Shooter: Radio Interference Trouble Shooter Present Accompanied by: Self / Same As Patient Allergies aspirin Allergy (Unknown, Verified 12/06/23 11:42) Gastrointestinal Upset Post menopausal: Yes HPI Comments Details: The patient is presenting referred from [facility] regarding abnormal Pap smear done in 09/03 showing ascus/HPV positive. [facility] Medical History Chondrocalcinosis of right knee Right anterior knee pain Elevated LFTs Pap 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 Persistent depressive disorder Essential (primary) hypertension Chronic pain of right knee Hypertension Social History Alcohol intake: current Alcohol intake frequency: does not drink Patient Tobacco Use Status: Never used Tobacco Substance Use Type: Marijuana Female Reproductive History Menstrual Age of Menarche: 15 Review of Systems Const All systems reviewed & are unremarkable except as noted in HPI and below Physical Exam Vital Signs: Last Vital Signs BP 132/86 12/06/23 11:31 BMI result Body Mass Index 25.0 General: Yes no CVA tenderness External Female Exam: normal external appearance and normal appearance of the urethra Speculum Exam - Vagina: normal appearance of the vagina, normal palpation, no lesions and no masses Speculum Exam - Cervix: normal appearance of the cervix, normal palpation, no lesions, no masses and nontender Bimanual exam- vagina & uterus: normal bimanual exam, normal palpation, uterine size normal, normal palpation, uterine shape normal, No Cervical tenderness present and non-tender Bimanual Exam- Adnexa, other: normal adnexae Back/Spine/Pelvis Back: no CVA tenderness Office Procedures Colposcopy Colposcopy: Pre-Procedure Counseling: Before beginning the procedure, I conducted comprehensive counseling with the patient. We thoroughly discussed the procedure itself, including its details, alternatives, and all associated risks. This included but not limited to the following complications such as bleeding, infection, and injury to the vagina, bladder, and vessels, as well as the potential need for transfusion with all its associated risks. Subsequently, the patient sign the consent. Pap smear result: Ascus/HPV positive. Procedure: During the procedure, the following steps were performed: A speculum was inserted, and acetic acid was applied. Colposcopy was conducted, allowing visualization of the transformation zone. Acetowhite lesions were identified at the 6 o'clock position. Cervical biopsies were obtained from the 60 o'clock position, followed by an endocervical curettage (ECC). Vaginoscopy of the upper vagina revealed no evidence of aceto-white lesions. Hemostasis was achieved using Monsel solution, and the patient tolerated the procedure well. Post-Procedure Instructions: The patient was advised to promptly contact the office or the after hours answering service or go to the emergency room if experiencing a temperature exceeding 100.4?F, abdominal pain, nausea/vomiting, or bleeding. Additionally, the patient was instructed to abstain from vaginal intercourse and bathtub use. The patient confirmed understanding of these instructions. Discharge Instructions: The patient was instructed to schedule a follow-up appointment in 2 weeks for further evaluation and management. Please note that this note was generated using a voice recognition program, and errors may have occurred during carbon setter. [id number] of cervix including upper vagina with biopsy and ECC Procedure code (CPT) selection complete Assessment & Plan Assessment & Plan (1) ASCUS with positive high risk HPV cervical: Code(s): R87.610 - Atypical squamous cells of undetermined significance on cytologic smear of cervix (ASC-US); R87.810 - Cervical high risk human papillomavirus (HPV) DNA test positive Category: Medical Plan: Discussed with the patient the result of her abnormal pap, its significance, risk of progression, persistence, and regression. the false positive/negative rate of a Pap smear as a screening test in detecting cervical cancer and the indication for a diagnostic test -colposcopy, biopsy, endocervical curettage. The patient verbalized understanding and agreed with the plan, all questions answered. Colposcopy/biopsy/ECC done, see procedure note Orders: Orders AMB Colposcopy Today R87.610 - Atypical squamous cells of undetermined significance on cytologic smear of cervix (ASC-US), R87.810 - Cervical high risk human papillomavirus (HPV) DNA test positive Coding Level of Care Code Procedure Only Diagnoses ASCUS with positive high risk HPV cervical R87.610; R87.810 CPT Codes Colposcopy - CPT: 07312-[id number] of cervix including upper vagina with biopsy and ECC ([id number])
[2023-12-06 11:31] VITALS: BP 132/86; BMI 25.0
== END 2023-12-06 12:20 | disposition home or self-care (01) ==
LOC: HO.HWS 11:25
PROVIDERS: PCP Internal Medicine; Visit Provider Obstetrics & Gynecology
DX: R87.610 Atypical squamous cells of undetermined significance on cytologic smear of cervix (ASC-US) (principal); R87.810 Cervical high risk human papillomavirus (HPV) DNA test positive
CPT/HCPCS: 57454

== ENCOUNTER 2023-12-14 14:15 | Outpatient (AMB) | payer MEDICAID, SELFPAY ==
--- NOTE | 2023-12-14 14:23 | A.OFFVIS_ITS ---
Vital Signs 12/14/23 14:24 Height 5 ft 2 in Weight 136 lb 10.986 oz BMI 25.0 Intake Visit Reasons: colpo results Scuba Dive Training Instructor Required: No Information Interpreted: non-clinical & clinical Computer Programmer Chief: Computer Programmer Chief Present Accompanied by: Daughter Allergies aspirin Allergy (Unknown, Verified 12/14/23 14:26) Gastrointestinal Upset Is last menstrual period known: Yes Last menstrual period: 04/11/20 Post menopausal: No Patient : No Do you need a note to return to daycare/school/sports/work: Yes (for surgery on wednesday) HPI Comments Details: Presenting post colpo for follow-up. The patient is doing well with no complaints. The pathology showed the following: A. Endocervix, curettage: Squamous mucosa with focal atrophy, inflammation and reactive changes and scant endocervical glandular epithelium; negative for dysplasia. B. Cervix, 6:00, biopsy: Focal high-grade squamous intraepithelial lesion (moderate dysplasia, SULEIMAN 2); no endocervical glandular component present [facility] Medical History Chondrocalcinosis of right knee Right anterior knee pain Elevated LFTs Pap 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 Persistent depressive disorder Essential (primary) hypertension Chronic pain of right knee Hypertension Social History Alcohol intake: current Alcohol intake frequency: does not drink Patient Tobacco Use Status: Never used Tobacco Substance Use Type: Marijuana Female Reproductive History Menstrual Age of Menarche: 15 Date of last menstrual period: 04/11/20 Total pregnancies: 2 Full term: 2 Review of Systems Card Reports as per HPI and Reports no additional complaints Resp Reports as per HPI and Reports no additional complaints GI Reports as per HPI and Reports no additional complaints Reports as per HPI Physical Exam Vital Signs: BMI result Body Mass Index 25.0 Const General: cooperative, healthy appearing and comfortable Resp Effort & Inspection: normal respiratory effort Auscultation: clear to auscultation bilaterally Percussion: percussion normal Cardio Palpation: normal PMI Rate: regular rate Rhythm: regular rhythm Heart sounds: no murmurs and no rubs Peripheral pulses: Peripheral pulses 2+ throughout GI Inspection: Yes normal to inspection Palpation (GI): Soft to palpation, nontender, no guarding, not rigid and No hepatosplenomegaly present Percussion: Yes normal to percussion Auscultation: normal bowel sounds Rectal Exam - Female: deferred Assessment & Plan Assessment & Plan (1) SULEIMAN II (cervical intraepithelial neoplasia II): Code(s): N87.1 - Moderate cervical dysplasia Category: Medical Plan: Discussed with the patient the pathology results of the colposcopy biopsies & endocervical curettage ( moderate dysplasia-SULEIMAN 2). Discussed with the patient the sensitivity specificity, positive and negative predictive value in detecting cervical cancer in addition discussed the regression, persistence and progression rates. Per ASCCP guidelines, 2 options of management were discussed with the patient including either observation with HPV based screening and colposcopy biopsy at 6 months and 12 months versus a diagnostic excisional procedures , which is the preferred method of management. The patient decided to proceed with a LEEP, possible LEEP cone with post cone ECC. Discussed with the patient the procedure, its benefits and risks including bleeding, infection, possible need for blood transfusion with all its risk ( HIV, syphilis, Hepatitis, anaphylaxis shock, others..), injury to bladder, rectum, possible re-excision for positive margins, potential need for hysterectomy, possible future negative impact on fertility including ( cervical stenosis, incompetence , increase risk for c section 2ndary to cervical scarring and failure of dilatation), possible positive margin necessitating re-excision. Also discussed the patient options of anesthesia either paracervical block versus IV sedation/MAC, prefers to proceed with IV sedation/MAC. All questions answered, the patient verbalized understanding and signed the consent. Coding Level of Care Code Est Pt Level 3 (77951) Diagnoses SULEIMAN II (cervical intraepithelial neoplasia II) N87.1
[2023-12-14 14:24] VITALS: BMI 25.0
== END 2023-12-14 15:25 | disposition home or self-care (01) ==
LOC: HO.HWS 14:15
PROVIDERS: PCP Internal Medicine; Visit Provider Obstetrics & Gynecology
DX: N87.1 Moderate cervical dysplasia (principal)
CPT/HCPCS: 99213

== ENCOUNTER → 2023-12-14 14:15 | Outpatient (BNVA) | payer MEDICAID, SELFPAY | PROVIDERS: PCP Internal Medicine; Visit Provider Obstetrics & Gynecology | DX: N87.1 Moderate cervical dysplasia (principal) | CPT/HCPCS: 99212 ==

== ENCOUNTER 2023-12-31 11:02 | Day surgery (SDC) | payer MEDICAID, SELFPAY ==
[2023-12-28 10:03] VITALS: BMI 24.9
[2023-12-31 11:36] VITALS: BP 135/86; PULSE 85; RESP 16; TEMP 37.2; O2SAT 98; BMI 23.8
[2023-12-31 11:48] LABS: Glucose, Whole Blood 125 mg/dL (60-115)
[2023-12-31] MEDS: Lactated Ringers 1,000 ML 100 ML IVCONT (11:52)
--- NOTE | 2023-12-31 12:07 | PC.NURSE ---
Patient SR on monitor, possible RBBB. No EKG on file. Anesthesia Dr. Kiser aware. Patient ambulates and exercises with no issues. Dr. Kiser aware. No preop EKG necessary per her.
--- NOTE | 2023-12-31 12:20 | P.CONAN_ITS ---
Documented by User: Siena Chatman NP 12/29/23 12:27 HPI - Anesthesia Eval Consult details Narrative: 63yo F for LEEP,poss loop electric excision,poss loop electrical,cone and post endocervical curettage PMFSH Active Problems Active Problems: All Active Problems SULEIMAN II (cervical intraepithelial neoplasia II) (Acute) ASCUS with positive high risk HPV cervical (Acute) Abnormal mammogram of left breast (Acute) Elevated LFTs (Acute) Chondrocalcinosis of right knee (Acute) Right anterior knee pain (Acute) Past Medical History Medical History (Updated 12/28/23 @ 09:45 by Cherri Jean-Baptiste RN) Diabetes Chondrocalcinosis of right knee Right anterior knee pain Elevated LFTs Pap 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 Persistent depressive disorder Essential (primary) hypertension Chronic pain of right knee Hypertension Surgical History Surgical History (Updated 12/28/23 @ 09:56 by Cherri Jean-Baptiste RN) History of endometrial ablation Social History Social History Alcohol intake: current Alcohol intake frequency: does not drink Patient Tobacco Use Status: Never used Tobacco Use of substances other than those prescribed or required for medical reasons: Yes Substance Use Type: Marijuana Advance Directives: No (unknown) Advance Directives Information Provided: Yes Advance Directives on File: No Meds Allergies Allergy/AdvReac Type Severity Reaction Status Date / Time aspirin Allergy Intermediate Gastrointestinal Verified 12/31/23 11:34 Upset Home Medications ?Medication ?Instructions ?Recorded ?Confirmed ?Last Taken ?Type hydrochlorothiazide 25 mg tablet 25 mg PO DAILY 03/13/21 12/31/23 12/30/23 History amlodipine 5 mg tablet 5 mg PO QAM 12/28/23 12/31/23 12/31/23 History insulin glargine 100 unit/mL (3 28 unit subcut BEDTIME 12/28/23 12/31/23 12/30/23 22:00 History mL) subcutaneous pen (Lantus 14 units Solostar U-100 Insulin) metformin 500 mg tablet 1,000 mg PO BID 12/28/23 12/31/23 12/30/23 10:00 History Exam Height,Weight and Vital Signs: Height 5 ft 2 in Weight 61.689 kg Pertinent Lab Results Pertinent Lab Results: Laboratory Tests 12/04/23 11:52 WBC 7.0 Hgb 14.7 Hct 43.5 Plt Count 173 Sodium 132 L Potassium 4.5 Chloride 98 Carbon Dioxide 20 L BUN 11 Creatinine 0.82 Assessment and Plan Assessment Anesthesia Assessment: Chart Reviewed Documented by User: Naomy Kiser DO 12/31/23 12:26 [facility] Past Medical History Medical History (Updated 12/28/23 @ 09:45 by Cherri Jean-Baptiste RN) Diabetes Chondrocalcinosis of right knee Right anterior knee pain Elevated LFTs Pap 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 Persistent depressive disorder Essential (primary) hypertension Chronic pain of right knee Hypertension Family History Family history of problems with anesthesia: No Surgical History Surgical History (Updated 12/28/23 @ 09:56 by Cherri Jean-Baptiste RN) History of endometrial ablation History of Problems with Anesthesia: No Social History Social History Alcohol intake: current Alcohol intake frequency: does not drink Patient Tobacco Use Status: Never used Tobacco Use of substances other than those prescribed or required for medical reasons: Yes Substance Use Type: Marijuana Advance Directives: No (unknown) Advance Directives Information Provided: Yes Advance Directives on File: No Meds Allergies Allergy/AdvReac Type Severity Reaction Status Date / Time aspirin Allergy Intermediate Gastrointestinal Verified 12/31/23 11:34 Upset Home Medications ?Medication ?Instructions ?Recorded ?Confirmed ?Last Taken ?Type hydrochlorothiazide 25 mg tablet 25 mg PO DAILY 03/13/21 12/31/23 12/30/23 History amlodipine 5 mg tablet 5 mg PO QAM 12/28/23 12/31/23 12/31/23 History insulin glargine 100 unit/mL (3 28 unit subcut BEDTIME 12/28/23 12/31/23 12/30/23 22:00 History mL) subcutaneous pen (Lantus 14 units Solostar U-100 Insulin) metformin 500 mg tablet 1,000 mg PO BID 12/28/23 12/31/23 12/30/23 10:00 History Exam Exam Date and Time: December 31, 2023 1220 Height,Weight and Vital Signs: Height 5 ft 2 in Weight 61.689 kg Vital Signs Temperature 98.9 F 12/31/23 11:36 Pulse Rate 85 12/31/23 11:36 Respiratory Rate 16 12/31/23 11:36 Blood Pressure 135/86 12/31/23 11:36 Pulse Oximetry 98 12/31/23 11:36 Oxygen Delivery Method Room Air 12/31/23 11:36 Temperature 98.9 F 12/31/23 11:36 Pulse Rate 85 12/31/23 11:36 Respiratory Rate 12/31/23 11:36 Blood Pressure 135/86 12/31/23 11:36 Pulse Oximetry 98 12/31/23 11:36 Oxygen Delivery Method Room Air 12/31/23 11:36 Airway Mallampati Class: I TM Dist: >3cm Neck ROM: Full Loose/Missing/Broken Teeth: Yes (several missing teeth) Heart: S1S2 Lungs: CTAB Assessment and Plan Assessment Anesthesia Assessment: Anesthesia Plan Discussed and Chart Reviewed Final Anesthetic Review Family History of Problems with Anesthesia: No History of Problems with Anesthesia: No NPO: Yes ASA Class: II Final Preanesthetic Review: No Changes in Pt Med Stat, Meds/Allgs Chart Reviewed, Consent Obtained/Reviewed and Anes Risks/Benef Reviewed Patient Risk: Low Procedure Risk: Low Anesthetic Plan Anesthetic Plan: GA and Agree w/ Assess. and Plan Disposition: Standard PACU
--- NOTE | 2023-12-31 12:33 | MHC.SHP ---
Pre-Procedural Eval Section A - 24 Hr Update-Section A only Date of Service: 12/31/23 The patient is an INPATIENT: No Changes since office visit: No Cold of Flu in the past 2 weeks, No New Medical Problems, No Changes in Medication and No Patient answered all questions The patient has been examined within 24 hours of the surgical procedure. The History & Physical has been completed within 30 days and I have reviewed it.: Yes Section B - Complete if H&P > 30 days Chief Complaint: Moderate cervical dysplasia Allergies: Allergies Allergy/AdvReac Type Severity Reaction Status Date / Time aspirin Allergy Intermediate Gastrointestinal Verified 12/31/23 11:34 Upset Plan Diagnosis/Plan: Unchanged I have reviewed the history and physical and performed a pertinent physical examination on my patient. No changes have occurred unless specified. Time Spent With Patient Time: Total time managing care of this patient today ____ minutes.
--- NOTE | 2023-12-31 13:18 | PM.OP ---
Brief Operative Note Date of Service: 12/31/23 Pre-op diagnosis: SULEIMAN 2 Post-op diagnosis: same Procedure: LEEP CONE, top-hat excision with post CONE ECC Surgeon: Bryan Shoemaker MD Anesthesia: GLMA and other (Paracervical block) Was an Welder/Fitter used for this Procedure?: No Estimated blood loss (mL): 0 Pathology: other (Cervical cone, top-hat, Post cone ECC) Condition: stable Disposition: other (Home)
--- NOTE | 2023-12-31 13:19 | W.PM.OPN ---
Operative Note Operative Note Date of Service: 12/31/23 Narrative: Pre op diagnosis: SULEIMAN 2 Operation: Colposcopy, Loop electrical excision procedure cone, top hat endocervical excision, post cone ECC Postop diagnosis: the same Quantitative blood loss: 50 cc Surgeon: Bryan Shoemaker MD, FACOG Sales Agent Fire Insurance: None Pathology: Cervical cone, top-hat endo cervical excision, endo cervical curettage Complications: none Anesthesia: GLMA and Para cervical block Procedure: The patient was put in a dorsal lithotomy position, scrubbed and draped in the usual sterile fashion. A speculum was inserted inside the patient's vagina. The cervix is assessed using the colposcope with acetic acid , the lesions were seen, and at least 1 cm of the squamocolumnar junction was observed. 20 x 5 mm size loop was selected based upon the diameter of the lesion. Lugol solution was used to outline the lesions and area of the transformation zone order to be removed 10 cc of xylocaine with epinephrine were injected submucosally into the surface of the cervix (ectocervix) at the 3, 6, 9, and 12 o'clock positions. The electrosurgical generator is set at 30 to 40 carrington on blend 1. The loop is carefully passed simultaneously around and under the transformation zone, in order to ensure excising it making sure the lesion is at least 5 mm far from the specimen margins . The loop was allowed to glide through the cervix from one side to the other, allowing the cutting current to divide the tissue. Additional tissue was excised from this area with a smaller-diameter loop , endo cervical top-hat excision was performed An endo cervical curettage is performed following completion of excision, and hemostasis is obtained with a Ball electrode or regular tip cautery. At the end, Monsel's solution was applied to the cone bed. The patient tolerated the procedure well and, all instruments were taken out of the patient vaginal cavity, and the patient was transferred to the PACU in stable condition.
[2023-12-31 13:25] VITALS: BP 83/51; PULSE 81; RESP 16; TEMP 36.4; O2SAT 98
[2023-12-31 13:30] VITALS: BP 86/49; PULSE 79; RESP 16; O2SAT 98
[2023-12-31 13:35] VITALS: BP 86/50; PULSE 89; RESP 16; O2SAT 96
[2023-12-31 13:40] VITALS: BP 100/62; PULSE 83; RESP 16; O2SAT 96
[2023-12-31 13:55] VITALS: BP 115/71; PULSE 78; RESP 16; TEMP 36.4; O2SAT 95
== END 2023-12-31 14:20 | disposition home or self-care (01) ==
PROVIDERS: PCP Internal Medicine; Visit Provider Obstetrics & Gynecology
PROC: 0UBC7ZZ Excision of Cervix, Via Natural or Artificial Opening (ICD-10-PCS; CPT 57522; principal; 2023-12-31 13:30)
DX: D06.7 Carcinoma in situ of other parts of cervix (principal); F34.1 Dysthymic disorder; I10 Essential (primary) hypertension; E11.9 Type 2 diabetes mellitus without complications; R79.89 Other specified abnormal findings of blood chemistry; G89.4 Chronic pain syndrome; M25.561 Pain in right knee; Z79.4 Long term (current) use of insulin; Z79.84 Long term (current) use of oral hypoglycemic drugs; Z79.899 Other long term (current) drug therapy; Z88.6 Allergy status to analgesic agent
CPT/HCPCS: 57461; 82947; 88305; 88307; J1100; J1885; J2250; J2405; J2704; J3010

== ENCOUNTER → 2023-12-31 11:02 | Outpatient (BNV) | payer MEDICAID, SELFPAY | PROVIDERS: PCP Internal Medicine; Visit Provider Obstetrics & Gynecology | DX: N87.1 Moderate cervical dysplasia (principal) | CPT/HCPCS: 57461 ==

== ENCOUNTER 2024-01-07 11:33 | Outpatient (REF) | payer MEDICAID, SELFPAY ==
[2024-01-07 13:37] LABS: Alanine Aminotransferase 74 U/L (0-31); Albumin Level 4.6 g/dL (3.5-5.0); Alkaline Phosphatase 115 U/L (39-117); Aspartate Amino Transferase 59 U/L (5-31); Bilirubin Direct 0.2 mg/dL (0.0-0.5); Total Protein 9.3 g/dL (6.5-8.0)
[2024-01-07 13:42] LABS: Bilirubin Total 0.7 mg/dL (0.0-1.0)
== END 2024-01-07 11:34 | disposition home or self-care (01) ==
LOC: HO.HHCL 11:33
PROVIDERS: Visit Provider Internal Medicine
DX: R79.89 Other specified abnormal findings of blood chemistry (principal)
CPT/HCPCS: 36415; 80076

== ENCOUNTER 2024-01-17 12:42 | Outpatient (AMB) | payer MEDICAID, SELFPAY ==
--- NOTE | 2024-01-17 12:42 | MHC.OFFVIS ---
Intake Visit Reasons: post op Allergies aspirin Allergy (Intermediate, Verified 12/31/23 11:34) Gastrointestinal Upset HPI Comments Details: The patient scheduled tele health visit for follow-up post LEEP cone. The patient has no complaints. The patient showed the following: A. Cervix, cone excision: - Focal residual high grade squamous intraepithelial lesion (SULEIMAN 2-3); negative margins. - Background inflamed cervical transformation zone mucosa with reactive changes. B. Cervix, top hat, excision: Squamous mucosa within normal limits; no endocervical epithelium identified. C. Endocervix, post cone, curettage: Superficial fragments of endocervical and atrophic squamous epithelium; otherwise within normal limits PFSH Medical History Diabetes Chondrocalcinosis of right knee Right anterior knee pain Elevated LFTs Pap 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 Persistent depressive disorder Essential (primary) hypertension Chronic pain of right knee Hypertension Surgical History History of endometrial ablation Social History Alcohol intake: current Alcohol intake frequency: does not drink Patient Tobacco Use Status: Never used Tobacco Substance Use Type: Marijuana Female Reproductive History Menstrual Age of Menarche: 15 Review of Systems Const All systems reviewed & are unremarkable except as noted in HPI and below Reports as per HPI and Reports no additional complaints GI Reports no additional complaints Reports no additional complaints Telehealth Telehealth Telehealth Platform: Telephone Location of provider rendering services: practice address Location of patient: address on file Patient Identification confirmed using: Name, : Yes Telehealth method: video Patient verbally consented to treatment: Yes Patient verbally consented to billing insurance company: Yes Patient informed of any privacy concerns related to visit: Yes Assessment & Plan Assessment & Plan (1) SULEIMAN III (cervical intraepithelial neoplasia grade III) with severe dysplasia: Comment: Status post LEEP cone with post cone ECC negative margin Code(s): D06.9 - Carcinoma in situ of cervix, unspecified Category: Medical Plan: Discussed with the patient the procedure and the pathology of the LEEP. Instructions given the patient to schedule co testing in 6 months . All questions answered patient verbalized understanding. I spent a total of 20 minutes reviewing the chart, talking to the patient via video and documenting in the medical record. Coding Level of Care Code Tele Est Pt Level 1 (37620) Diagnoses SULEIMAN III (cervical intraepithelial neoplasia grade III) with severe dysplasia D06.9
== END 2024-01-17 14:13 ==
LOC: HO.HWS 12:42
PROVIDERS: PCP Internal Medicine; Visit Provider Obstetrics & Gynecology
DX: D06.9 Carcinoma in situ of cervix, unspecified (principal)
CPT/HCPCS: 99211

== ENCOUNTER → 2024-01-17 12:42 | Outpatient (BNVA) | payer MEDICAID, SELFPAY | PROVIDERS: PCP Internal Medicine; Visit Provider Obstetrics & Gynecology ==

== ENCOUNTER 2024-01-25 14:26 | Outpatient (REF) | payer MEDICAID, SELFPAY ==
[2024-01-25 15:45] LABS: Prothrombin Time 12.3 SEC (11.1-13.3)
[2024-01-25 16:46] LABS: C Reactive Protein 0.16 mg/dL (< or = 0.50); Iron 140 mcg/dL (30-160); Percent Iron Saturation 43 % (15-50); Total Iron Binding Capacity 328 mcg/dL (228-428); Unsaturated Iron Binding 188 ug/dL
[2024-01-25 16:49] LABS: Erythrocyte Sedimentation Rate 28 MM/HR (0-20)
[2024-01-25 16:50] LABS: Ferritin 621 ng/mL (10-250)
[2024-01-26 08:26] LABS: HBS Num1 > 1000.00 mIU/mL (0-7.99); HBc Num1 0.12 S/CO (0.00-0.79); HBsAGNum1 0.29 S/CO (0.00-0.99); HIV AB/AG Nonreactive (Nonreactive); HIV Num 1 0.06 S/CO (0.00-0.99); Hepatitis A Antibody IgM 0.24 Index (0-0.79); Hepatitis B Core Antibody Nonreactive (Nonreactive); Hepatitis B Surface Antigen Negative (Negative); ~HepC Num1 0.11 S/CO (0.00-0.79); ~Hepatitis A Antibody IgM Nonreactive (Nonreactive); ~Hepatitis B Surface Antibody REACTIVE (Nonreactive); ~Hepatitis C Antibody Nonreactive (Nonreactive)
[2024-01-26 08:52] LABS: Ceruloplasmin 28 mg/dL (14-48)
[2024-01-27 09:49] LABS: Alpha Fetoprotein 7.1 ng/mL
[2024-01-30 13:08] LABS: Smooth Muscle Antibody 32 U (<20)
[2024-02-03 02:08] LABS: FIB-ALT 83 U/L (6-29); FIB-Alpha-2-Macroglobulin 320 mg/dL (106-279); FIB-Apolipoprotein A1 150 mg/dL (101-198); FIB-GGT 86 U/L (3-65); FIB-Haptoglobin 98 mg/dL (43-212); FIB-Total Bilirubin 0.6 mg/dL (0.2-1.2); Liver Fibrosis Stage F3; Nec Inflam Act Grade A2-A3
== END 2024-01-25 14:27 | disposition home or self-care (01) ==
LOC: HO.LAB 14:26
PROVIDERS: PCP Internal Medicine; Visit Provider Nurse Practitioner Family
DX: R79.89 Other specified abnormal findings of blood chemistry (principal); D64.9 Anemia, unspecified; R74.8 Abnormal levels of other serum enzymes; K58.9 Irritable bowel syndrome, unspecified; R16.0 Hepatomegaly, not elsewhere classified
CPT/HCPCS: 36415; 81596; 82105; 82390; 82728; 83540; 85610; 85652; 86015; 86140; 86704; 86706; 86709; 86803; 87340; 87389; 99212

== ENCOUNTER 2024-01-25 14:26 | Outpatient (AMB) | payer MEDICAID, SELFPAY ==
--- NOTE | 2024-01-25 14:38 | MHC.OFFVIS ---
Vital Signs 01/25/24 14:44 Height 5 ft 2 in Weight 134 lb 0.657 oz BMI 24.5 BP 140/82 H Blood Pressure Location Rt brachial Position Sitting Pulse 84 Pulse Source Pulse Oximeter Pulse Oximetry (%) 99 Oxygen Delivery Method Room Air Intake Visit Reasons: Elevated LFTs, Enlarged Liver Intake Note: Odalys presents in office today for a scheduled initial assessment. CC; Pt reports that she has previous hx of elevated LFTs. However, at her most recent primary visit, her lab values have decreased significantly. Pt denies any sx or additional concerns at this time. Sales Correspondence Clerk Required: No Allergies aspirin Allergy (Intermediate, Verified 01/25/24 14:39) Gastrointestinal Upset HPI HPI Elevated LFTs, Enlarged Liver: Details: 63-year-old female with past medical history of diabetes, hypertension, seasonal allergies, transaminitis is here today for initial consultation. Patient was sent to us by her PCP. In the beginning of this year elevated liver enzymes repeated in December in significantly lower. Patient has been trying to eat healthier. Denies drinking alcohol ever, no no family history of liver disease. Patient denies any abdominal pain or discomfort Laboratory Tests 12/04/23 01/07/24 11:52 11:36 AST 251 H 59 H ALT 158 H 74 H Alkaline Phosphatase 146 H 115 Ultrasound in September of 2022 showed enlarged liver with increased hepatic echogenicity. Negative Cologuard few months ago. Patient denies any melena, hematochezia, unintentional weight loss or ribbon like stools. Patient denies any dyspepsia, dysphagia or odynophagia. Patient denies any GI concerning symptoms. [facility] Medical History Diabetes Chondrocalcinosis of right knee Right anterior knee pain Elevated LFTs Pap 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 Persistent depressive disorder Essential (primary) hypertension Chronic pain of right knee Hypertension Surgical History History of endometrial ablation Social History Alcohol intake: current Alcohol intake frequency: does not drink Patient Tobacco Use Status: Never used Tobacco Substance Use Type: Marijuana Female Reproductive History Menstrual Age of Menarche: 15 Review of Systems Const Denies weight gain and Denies weight loss ENT Reports no additional complaints, Denies dysphagia and Denies odynophagia Card Reports no additional complaints Resp Reports no additional complaints GI Denies abdominal pain, Denies belching, Denies melena, Denies bloating, Denies change in bowel habits, Denies dysphagia, Denies excessive flatus, Denies dyspepsia, Denies heartburn, Denies diarrhea, Denies loose stools, Denies nausea, Denies odynophagia and Denies vomiting Musc Reports no additional complaints Neuro Reports no additional complaints Psych Reports no additional complaints Endo Reports no additional complaints Physical Exam Vital Signs: Last Vital Signs Pulse 84 01/25/24 14:44 BP 140/82 H 01/25/24 14:44 Pulse Ox 99 01/25/24 14:44 Oxygen Delivery Method Room Air 01/25/24 14:44 BMI result Body Mass Index 24.5 Const General: healthy appearing, no acute distress and well developed Nutritional Appearance: well nourished Orientation/consciousness: patient oriented x3 Resp Effort & Inspection: normal respiratory effort, able to speak in complete sentences, no tracheal deviation and symmetric chest movement Auscultation: clear to auscultation bilaterally Cardio Rate: regular rate GI Inspection: Yes normal to inspection and No distended Palpation (GI): Soft to palpation, not firm, nontender and No hepatosplenomegaly present Auscultation: normal bowel sounds General: Yes no CVA tenderness Back/Spine/Pelvis Back: no CVA tenderness Skin General skin exam: elasticity normal, turgor normal and dry skin Neuro General: patient oriented x3 Psych Appearance: grossly normal Mental Status: mental status grossly normal Results Reviewed Results Reviewed: ABDOMINAL ULTRASOUND 09/2022 IMPRESSION: Hepatomegaly with increased parenchymal echogenicity which is nonspecific but could be seen in the setting of hepatic steatosis or hepatocellular disease. Assessment & Plan Assessment & Plan (1) Elevated LFTs: Code(s): R79.89 - Other specified abnormal findings of blood chemistry Category: Medical (2) Hepatomegaly: Code(s): R16.0 - Hepatomegaly, not elsewhere classified Plan Patient denies any abdominal pain or discomfort. Abdominal exam without ascites or abdominal distention. Will order abdominal ultrasound with elastography, liver fibrosis panel, rule out PBC, will send disease, autoimmune hepatitis, hemochromatosis. Patient will return to the office in 6 months, sooner on as needed basis. She is agreeable to this plan and verbalizes understanding of instructions. She was given the opportunity to ask questions and all questions answered. Thank you for allowing me to participate in her care Orders: Orders Alpha Fetoprotein Today R79.89 - Other specified abnormal findings of blood chemistry Prothrombin Time INR Today R74.8 - Abnormal levels of other serum enzymes HIV Ab/Ag Today R79.89 - Other specified abnormal findings of blood chemistry Smooth Muscle Antibody Today R79.89 - Other specified abnormal findings of blood chemistry Ceruloplasmin Today R79.89 - Other specified abnormal findings of blood chemistry IRON PROFILE Today D64.9 - Anemia, unspecified Ferritin Today R74.8 - Abnormal levels of other serum enzymes Erythrocyte Sedimentation Rate Today R79.89 - Other specified abnormal findings of blood chemistry US abdomen ball w elastography Today R74.01 - Elevation of levels of liver transaminase levels Hepatitis A,B,C Profile Today R79.89 - Other specified abnormal findings of blood chemistry C Reactive Protein Today K58.9 - Irritable bowel syndrome without diarrhea Liver Fibrosis Pnl Today R74.8 - Abnormal levels of other serum enzymes Coding Level of Care Code New Pt Level 4 (05961) Diagnoses Elevated LFTs R79.89 Hepatomegaly R16.0 Time Spent (min) 45 Comment 30 minutes spent with patient and additional 15 minutes spent reviewing her records
[2024-01-25 14:44] VITALS: BP 140/82; PULSE 84; O2SAT 99; BMI 24.5
== END 2024-01-25 15:08 | disposition home or self-care (01) ==
PROVIDERS: PCP Internal Medicine; Visit Provider Nurse Practitioner Family
DX: R79.89 Other specified abnormal findings of blood chemistry (principal); R16.0 Hepatomegaly, not elsewhere classified
CPT/HCPCS: 99204

== ENCOUNTER 2024-03-02 09:32 | Outpatient (REF) | payer MEDICAID, SELFPAY ==
--- NOTE | ~2024-03-02 | US_ITS ---
EXAMINATION: US ABDOMEN LIMITED WITH LIVER ELASTOGRAPHY CLINICAL INFORMATION: Elevation of transaminase. COMPARISON: Ultrasound 09/18/2022. TECHNIQUE: Real-time imaging of the abdominal viscera. Noninvasive ultrasound liver fibrosis assessment is performed using Britany ElastPQ point quantification shear wave elastography (pSWE) with a 5 MHz transducer. Multiple elastography samples are obtained. FINDINGS: PANCREAS: Normal. The visualized pancreatic head and body are normal in appearance. The remainder of the pancreas is obscured from visualization by the overlying bowel gas. LIVER: The liver is enlarged measuring 18.5 cm in greatest dimension with increased echogenicity consistent with hepatic steatosis. No focal lesion or intrahepatic biliary duct dilatation. The right lobe measures 18.5 cm in length. The left lobe measures 13.1 cm in length. Portal venous flow is hepatopedal Shear wave elastography provides a median stiffness of 1.98 m/s (reference: normal median stiffness is 0.81 - 1.22 m/s). The IQR/median stiffness to assess sampling precision is 0.11 (reference: optimal IQR/median stiffness is under 0.3). GALLBLADDER: The gallbladder is quite distended at 11.3 cm in length without evidence of stones, sludge, polyps, wall thickening or pericholecystic fluid. COMMON BILE DUCT: Normal in caliber measuring 0.4 cm in diameter. RIGHT KIDNEY: Normal. No hydronephrosis. No renal calculi or focal parenchymal lesions. The kidney measures 10.8 cm in maximum dimension. FREE FLUID: None. US/US abdomen ball w elastography IMPRESSION: 1. Enlarged fatty liver. 2. Elastography: Liver elastography measurements are consistent with a moderate risk for clinically significant liver fibrosis (METAVIR Stage F2-F3). Electronically signed by: Mamadou Cm MD 03/08/2024 05:05 PM EDT
== END 2024-03-02 09:33 | disposition home or self-care (01) ==
LOC: HO.US 09:32
PROVIDERS: PCP Internal Medicine; Visit Provider Nurse Practitioner Family
DX: R74.01 Elevation of levels of liver transaminase levels (principal)
CPT/HCPCS: 76705; 76981

== ENCOUNTER 2024-06-09 12:19 | Outpatient (REF) | payer OTHER, SELFPAY | END 2024-06-09 12:20 | disposition home or self-care (01) | LOC: HO.MAMMO 12:19 | PROVIDERS: PCP Internal Medicine; Visit Provider Internal Medicine | DX: Z12.31 Encounter for screening mammogram for malignant neoplasm of breast (principal) | CPT/HCPCS: 77063; 77067 ==

== ENCOUNTER → 2024-06-09 12:30 | Outpatient (BNV) | payer OTHER, SELFPAY | PROVIDERS: PCP Internal Medicine; Visit Provider Internal Medicine | DX: Z12.31 Encounter for screening mammogram for malignant neoplasm of breast (principal) | CPT/HCPCS: 77063; 77067 ==

== ENCOUNTER 2024-07-25 15:32 | Outpatient (AMB) | payer OTHER, SELFPAY ==
--- NOTE | 2024-07-25 15:35 | MHC.OFFVIS ---
Vital Signs 07/25/24 15:36 Height 5 ft 2 in Weight 136 lb 3.931 oz BMI 24.9 BP 142/78 H Blood Pressure Location Rt brachial Position Sitting Pulse 78 Pulse Source Pulse Oximeter Pulse Oximetry (%) 99 Oxygen Delivery Method Room Air Intake Visit Reasons: 6 month follow up Intake Note: ESTABLISHED PATIENT for abn labs, enlarged liver. Imaging and labs done. Chief Complaint; Pt denies any GI concerns at this time. Pt has recently gotten taken off of her diabetes meds. Lna Required: No Accompanied by: Self / Same As Patient Allergies aspirin Allergy (Intermediate, Verified 07/25/24 15:36) Gastrointestinal Upset Medication List - Last Reconciled 07/25/24 by Bekah Muñoz, ELECTRONIC WARFARE SPECIALIST- amlodipine 5 mg PO QAM blood sugar diagnostic (FreeStyle Lite Strips) As directed blood-glucose meter (FreeStyle Lite Meter kit) As directed diclofenac sodium 1% topical hydrochlorothiazide 25 mg PO DAILY lancets (FreeStyle Lancets) As directed lancets (TRUEplus Lancets) As directed loratadine mg PO DAILY PRN pen needle, diabetic (BD Geena 2nd Gen Pen Needle) As directed HPI HPI 6 month follow up: Details: LAST VISIT: Elevated LFTs Hepatomegaly Plan Patient denies any abdominal pain or discomfort. Abdominal exam without ascites or abdominal distention. Will order abdominal ultrasound with elastography, liver fibrosis panel, rule out PBC, will send disease, autoimmune hepatitis, hemochromatosis. Patient will return to the office in 6 months, sooner on as needed basis. She is agreeable to this plan and verbalizes understanding of instructions. She was given the opportunity to ask questions and all questions answered. ? Thank you for allowing me to participate in her care Orders Orders Alpha Fetoprotein Today R79.89 Prothrombin Time INR Today R74.8 HIV Ab/Ag Today R79.89 Smooth Muscle Antibody Today R79.89 Ceruloplasmin Today R79.89 IRON PROFILE Today D64.9 Ferritin Today R74.8 Erythrocyte Sedimentation Rate Today R79.89 US abdomen ball w elastography Today R74.01 Hepatitis A,B,C Profile Today R79.89 C Reactive Protein Today K58.9 Liver Fibrosis Pnl Today R74.8 TODAY'S VISIT Patient is here today for follow-up. Patient reports that she has been doing well since last visit. Labs reviewed with patient again. We did call patient after she had her labs drawn back in January. Patient reports that she has been doing very well trying to avoid dietary triggers. Patient states that she changed her diet completely. No longer needs to use any insulin or metformin. Her blood sugars are under control with food only. Patient states that she monitors her blood sugar couple times a day. Patient denies any GI concerning symptoms. Patient reports to have good appetite. Patient is not drinking any alcohol. Patient reports that she is eating food that is mainly protein, vegetables, low-fat and low-salt. [facility] Medical History Diabetes Chondrocalcinosis of right knee Right anterior knee pain Elevated LFTs Pap 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 Persistent depressive disorder Essential (primary) hypertension Chronic pain of right knee Hypertension Surgical History History of endometrial ablation Social History Alcohol intake: current Alcohol intake frequency: does not drink Patient Tobacco Use Status: Never used Tobacco Substance Use Type: Marijuana Female Reproductive History Menstrual Age of Menarche: 15 Review of Systems Const Denies weight gain and Denies weight loss ENT Reports no additional complaints, Denies dysphagia and Denies odynophagia Card Reports no additional complaints Resp Reports no additional complaints GI Denies abdominal pain, Denies belching, Denies melena, Denies bloating, Denies change in bowel habits, Denies dysphagia, Denies excessive flatus, Denies dyspepsia, Denies heartburn, Denies diarrhea, Denies loose stools, Denies nausea, Denies odynophagia and Denies vomiting Musc Reports no additional complaints Neuro Reports no additional complaints Psych Reports no additional complaints Endo Reports no additional complaints Physical Exam Vital Signs: Last Vital Signs Pulse 78 07/25/24 15:36 BP 142/78 H 07/25/24 15:36 Pulse Ox 99 07/25/24 15:36 Oxygen Delivery Method Room Air 07/25/24 15:36 BMI result Body Mass Index 24.9 Const General: healthy appearing, no acute distress and well developed Nutritional Appearance: well nourished Orientation/consciousness: patient oriented x3 Resp Effort & Inspection: normal respiratory effort, able to speak in complete sentences, no tracheal deviation and symmetric chest movement Auscultation: clear to auscultation bilaterally Cardio Rate: regular rate GI Inspection: Yes normal to inspection and No distended Palpation (GI): Soft to palpation, not firm, nontender and No hepatosplenomegaly present Auscultation: normal bowel sounds General: Yes no CVA tenderness Back/Spine/Pelvis Back: no CVA tenderness Skin General skin exam: elasticity normal, turgor normal and dry skin Neuro General: patient oriented x3 Psych Appearance: grossly normal Mental Status: mental status grossly normal Results Reviewed Results Reviewed: Laboratory Tests 01/07/24 01/25/24 11:36 Unknown PT 12.3 INR 1.0 AST 59 H ALT 74 H Alkaline Phosphatase 115 Liver GGT 86 H Liver Fibrosis Stage F3 Anti-Smooth Muscle Ab 32 H Hepatitis A IgM Ab Nonreactive Hep Bs Antigen Negative Hep Bs Antibody REACTIVE Hep B Core Total Ab Nonreactive Hepatitis C Ab (EIA) Nonreactive HIV 1&2 Ab/P24 Ag 4thGn Nonreactive Laboratory Tests 01/25/24 Unknown Ceruloplasmin 28 Alpha Fetoprotein 7.1 H ABDOMINAL ULTRASOUND FINDINGS: PANCREAS: Normal. The visualized pancreatic head and body are normal in appearance. The remainder of the pancreas is obscured from visualization by the overlying bowel gas. LIVER: The liver is enlarged measuring 18.5 cm in greatest dimension with increased echogenicity consistent with hepatic steatosis. No focal lesion or intrahepatic biliary duct dilatation. The right lobe measures 18.5 cm in length. The left lobe measures 13.1 cm in length. Portal venous flow is hepatopedal Shear wave elastography provides a median stiffness of 1.98 m/s (reference: normal median stiffness is 0.81 - 1.22 m/s). The IQR/median stiffness to assess sampling precision is 0.11 (reference: optimal IQR/median stiffness is under 0.3). GALLBLADDER: The gallbladder is quite distended at 11.3 cm in length without evidence of stones, sludge, polyps, wall thickening or pericholecystic fluid. COMMON BILE DUCT: Normal in caliber measuring 0.4 cm in diameter. RIGHT KIDNEY: Normal. No hydronephrosis. No renal calculi or focal parenchymal lesions. The kidney measures 10.8 cm in maximum dimension. FREE FLUID: None. US/US abdomen ball w elastography IMPRESSION: 1. Enlarged fatty liver. 2. Elastography: Liver elastography measurements are consistent with a moderate risk for clinically significant liver fibrosis (METAVIR Stage F2-F3). Assessment & Plan Assessment & Plan (1) Elevated LFTs: Code(s): R79.89 - Other specified abnormal findings of blood chemistry Category: Medical (2) Hepatomegaly: Code(s): R16.0 - Hepatomegaly, not elsewhere classified (3) Liver fibrosis: Code(s): K74.00 - Hepatic fibrosis, unspecified Plan Will repeat blood work again, liver fibrosis panel, liver panel, lipid, transglutaminase, alpha-fetoprotein. Patient will go for ultrasound with elastography to compare. Patient reports that she changed a lot in her diet and recently no longer needs to use insulin or metformin. Patient will return in 6 months, sooner on as needed basis. She is agreeable to this plan and verbalizes understanding of instructions. She was given the opportunity to ask questions and all questions answered. Thank you for allowing me to participate in her care Orders: Orders Liver Panel 07/25/24 R74.01 - Elevation of levels of liver transaminase levels Liver Fibrosis Pnl 07/25/24 K76.0 - Fatty (change of) liver, not elsewhere classified Lipid Panel 07/25/24 I25.10 - Atherosclerotic heart disease of [place] coronary artery without angina pectoris Transglutaminase IgA 07/25/24 R10.9 - Unspecified abdominal pain Alpha Fetoprotein 07/25/24 R79.89 - Other specified abnormal findings of blood chemistry US abdomen ball w elastography 07/25/24 K76.0 - Fatty (change of) liver, not elsewhere classified Smooth Muscle Antibody Today R79.89 - Other specified abnormal findings of blood chemistry Mitochondrial Antibody Today R7.89 - Other specified abnormal findings of blood chemistry Coding Level of Care Code Est Pt Level 3 (23744) Diagnoses Elevated LFTs R7.89 Hepatomegaly R16.0 Liver fibrosis K74.00 Time Spent (min) 30 Comment 20 minutes spent with patient and additional 10 minutes spent reviewing her records
[2024-07-25 15:36] VITALS: BP 142/78; PULSE 78; O2SAT 99; BMI 24.9
== END 2024-07-25 16:09 | disposition home or self-care (01) ==
PROVIDERS: PCP Internal Medicine; Visit Provider Nurse Practitioner Family
DX: R79.89 Other specified abnormal findings of blood chemistry (principal); R16.0 Hepatomegaly, not elsewhere classified; K74.00 Hepatic fibrosis, unspecified
CPT/HCPCS: 99213

== ENCOUNTER → 2024-07-25 15:32 | Outpatient (BNVA) | payer MEDICAID, SELFPAY | PROVIDERS: PCP Internal Medicine; Visit Provider Nurse Practitioner Family | DX: R79.89 Other specified abnormal findings of blood chemistry (principal); R16.0 Hepatomegaly, not elsewhere classified; K74.00 Hepatic fibrosis, unspecified | CPT/HCPCS: 99212 ==

== ENCOUNTER 2024-08-24 11:13 | Outpatient (REF) | payer OTHER, SELFPAY ==
[2024-08-24 14:10] LABS: Creatinine Urine 42.17 mg/dL; Microalbum/Creatinine Ratio Ur 16.5 ug/mg cr (<30)
[2024-08-24 14:11] LABS: Alanine Aminotransferase 77 U/L (0-31); Albumin Level 4.9 g/dL (3.5-5.0); Alkaline Phosphatase 121 U/L (39-117); Anion Gap 14 (12-20); Aspartate Amino Transferase 52 U/L (5-31); Bilirubin Direct 0.2 mg/dL (0.0-0.5); Bilirubin Total 0.6 mg/dL (0.0-1.0); Blood Urea Nitrogen 19 mg/dL (9-16); Calcium 10.2 mg/dL (8.4-10.2); Carbon Dioxide 28 mmol/L (22-29); Chloride 101 mmol/L (96-108); Cholesterol 152 mg/dL (<200); Estimated Glomerular Filt Rate > 60; Glucose Random 140 mg/dL (60-115); HDL Cholesterol 58 mg/dL (>40); LDL Cholesterol Calculated 80 mg/dL (<100); Potassium 3.7 mmol/L (3.3-5.1); Sodium 139 mmol/L (135-145); Total Protein 9.3 g/dL (6.5-8.0); Triglycerides 71 mg/dL (<150)
--- OUTSIDE RECORDS SUMMARY | 2024-08-24 14:26 | XMS_ITS | Encounter Summary ---
Author Organization [employer] Address [address] [facility] [address]t [place] [address] Care Team Providers Care Computer Salesperson Retail Name Role Phone To Connelly MD Primary Care Provide r Reason for Visit * Reason Comments Med Refill Encounter Details Date Type Department Care Team ([facility] st Contact Info) Description 01/27/2024 Refill [facility] MEDICINE [address] [place], [place] [phone] To Connelly MD [address] [place], [place] [phone] Essential hypertension Social History Tobacco Use Types Packs/Day Years Used Date Smoking Tobacco: Never Passive Smoke Exposure: Never Smokeless Tobacco: Never Alcohol Use Standard Drinks/Week Comments Never 0 (1 standard drink = 0.6 oz pur e alcohol) Depression Answer Date Recorded Patient Health Questionnaire-9 Score 5 11/16/2023 Patient Health Questionnaire-9 Score 5 11/16/2023 Last PHQ-9: Questionnaire Data Not on file 0 11/16/2023 Housing Stability Answer Date Recorded What is your housing situation today? I have demetrio pimentel 11/16/[address] you li ve. Do you have problems with any of the following? None of the above 11/16/2023 Food Insecurity Answer Date Recorded Within the past 12 months, y ou worried that your food would run out before you got money to buy more: Never True 11/16/2023 Within the past 12 months,th e food you bought just didn't last and you didn't have enough money to get more: Never True 09/2023 Transportation Answer Date Recorded In the past 12 months, has l ack of transportation kept you from medical appts, meetings, work or from getting things needed for daily living? No 11/16/2023 Utilities Answer Date Recorded In the past 12 months, has t he electric, gas, oil or water company threatened to shut off services in your home? No 11/16/2023 Depression Answer Date Recorded Patient Health Questionnaire-2 Score 1 11/16/2023 Comments Unknown Sex and Gender Information Value Date Recorded Sex Assigned at Female 04/13/2022 10:16 AM EDT Legal Sex Female 10:16 AM EDT Gender Identity Female 04/13/2022 10:16 AM EDT Sexual Orientation Straight 04/13/2022 10 :16 AM EDT documented as of this encounter Plan of Treatment Not on file documented as of this encounter Goals Goal Patient Goal Type Associated Problems Recent Progress Patient-Stated? Author Keep fasting blood glucose between 70 and 130 Result Component Type 2 diabetes mellitus without complication, without long-term current use of insulin Improving(12/13 4:48 PM EDT) No Jace Em, PharmD documented as of this encounter Visit Diagnoses Diagnosis Essential hypertension Unspecified essential hypertension documented in this encounter Additional Health Concerns Assessment Noted Time PHQ-9 Depression Total Score: 5 11/16/19 24 2:25 PM EDT documented as of this encounter Care Teams Computer Salesperson Retail Relationship Specialty Start Date End Date To Connelly MD [address] [place] [address] PCP - General Internal Medicine 09/11/15 documented as of this encounter
--- OUTSIDE RECORDS SUMMARY | 2024-08-24 14:26 | XMS_ITS | Encounter Summary ---
Author Organization [email or web address] Address [address] [facility] [address] [place] [address] Care Team Providers Care Warehouse Shipping Associate Name Role Phone To Connelly MD Primary Care Provide r Encounter Details Date Type Department Care Team ([facility] st Contact Info) Description 12/03/2023 Telephone [facility] MED & PEDS [address] [place], [place] [phone] Emily Mccollum MD [address] [place], [place] [phone] Social History Tobacco Use Types Packs/Day Years [...] AM EDT documented as of this encounter Progress Notes * Emily Mccollum MD - 12/03/2023 6:10 PM EDT senior information security engineer, patient with elevated glucose 662 mg/dL documented in this encounter Miscellaneous Notes * Telephone Encounter - Emily Mccollum MD - 12/03/2023 6:18 PM EDT Discussed lab critical results, reviewed patient had elevated glucose since 3 months ago in labs. Sent to ED to r.o DKA vs HHS. Started on medication and will repeat labs. Patient denies feeling sick, electrolytes within normal limits, corrected sodium. Schedule sick visit for Wednesday in Walk in clinic Future Appointments Date Time Provider Department Center 12/06/2023 10:00 AM [facility] WALK-IN CLINIC 1 WALK-IN [facility] 02/17/2024 2:00 PM To Baires MD MEDICINE [facility] Sign note documented in this encounter Plan of Treatment Scheduled Orders Name Type Priority Associated Diagnoses Orde r Schedule CBC auto differential Lab Routine Hyperglycemia Expected: 12/03/2023 (Approximate), Expires: 12/02/2024 Comprehensive Metabolic Panel Lab Routine Hyperglycemia Expected: 12/03/2023 (Approximate), Expires: 12/02/2024 documented as of this encounter Goals Goal Patient Goal Type Associated Problems Recent Progress Patient-Stated? Author Keep fasting blood glucose between 70 and 130 Result Component Type 2 diabetes mellitus without complication, without long-term current use of insulin Improving(12/13 4:48 PM EDT) No Jace Em, PharmD documented as of this encounter Visit Diagnoses Diagnosis Hyperglycemia- Primary Other abnormal glucose documented in this encounter Additional Health Concerns Assessment Noted Time PHQ-9 Depression Total Score: 5 11/16/19 24 2:25 PM EDT documented as of this encounter Care Teams Warehouse Shipping Associate Relationship Specialty Start Date End Date To Connelly MD [address] [place] [id number] PCP - General Internal Medicine 09/11/15 documented as of this encounter
--- OUTSIDE RECORDS SUMMARY | 2024-08-24 14:26 | XMS_ITS | Encounter Summary ---
Author Organization [employer] Address [address] [facility] [address]t [place] [address] Care Team Providers Care Nitrate Operator Name Role Phone To Connelly MD Primary Care Provide r Reason for Visit * Reason Comments Med Refill Encounter Details Date Type Department Care Team ([facility] st Contact Info) Description 01/28/2024 Refill [facility] WALK-IN CENTER [address] [place], [place] [phone] To Connelly MD [address] [place], [place] [phone] Social History Tobacco Use Types Packs/Day Years [...] documented as of this encounter Visit Diagnoses Not on filedocumented in this encounter Additional Health Concerns Assessment Noted Time PHQ-9 Depression Total Score: 5 11/16/19 24 2:25 PM EDT documented as of this encounter Care Teams Nitrate Operator Relationship Specialty Start Date End Date To Connelly MD [address] [place] [address] PCP - General Internal Medicine 09/11/15 documented as of this encounter
--- OUTSIDE RECORDS SUMMARY | 2024-08-24 14:26 | XMS_ITS | Encounter Summary ---
Author Organization [employer] Address [address] [facility] 7t [place] [address] Care Team Providers Care Powerbuilder Name Role Phone To Connelly MD Primary Care Provide r Reason for Visit * Reason Comments Med Change Request Encounter Details Date Type Department Care Team ([facility] st Contact Info) Description 12/06/2023 Refill [facility] WALK-IN CENTER [address] [place], [place] [phone] Wanda Smith FNP [address] [place], [place] [phone] Hyperglycemia Social History Tobacco Use Types Packs/Day Years [...] AM EDT documented as of this encounter Miscellaneous Notes * Telephone Encounter - Asha Fernando - 12/08/2023 11:56 AM EDT DME Rx generated and placed on PCP desk for review and signature. Once signed will fax to [facility] and scan into chart under media. documented in this encounter Plan of Treatment Not on file documented as of this encounter Visit Diagnoses Diagnosis Hyperglycemia Other abnormal glucose documented in this encounter Additional Health Concerns Assessment Noted Time PHQ-9 Depression Total Score: 5 11/16/19 24 2:25 PM EDT documented as of this encounter Care Teams Powerbuilder Relationship Specialty Start Date End Date To Connelly MD [address] [place] [address] PCP - General Internal Medicine 09/11/15 documented as of this encounter
--- OUTSIDE RECORDS SUMMARY | 2024-08-24 14:26 | XMS_ITS | Encounter Summary ---
Author Organization [employer] Address [address] [facility] [address]t [place] [address] Care Team Providers Care Electrical Assembler Name Role Phone To Connelly MD Primary Care Provide r Reason for Visit * Reason Comments Pre-visit Planning Pre-visit planning - LVM Encounter Details Date Type Department Care Team ([facility] st Contact Info) Description 08/14/2024 Patient Outreach [facility] MEDICINE [address] [place], [place] [phone] To Connelly MD [address] [place], [place] [phone] Pre-visit Planning (Pre-visit planning - LVM ) Social History Tobacco Use Types Packs/Day Years [...] as of this encounter Progress Notes * Claudia Jean - 08/14/2024 11:02 AM EST SEKOU Tamayo placed outbound call to patient to complete pre-visit planning. No answer at this time. Patient name and were not confirmed. CC left voicemail requesting return call. Direct contact information provided. documented in this encounter Plan of Treatment [...] documented as of this encounter Care Teams Electrical Assembler Relationship Specialty Start Date End Date To Connelly MD [address] [place] [address] PCP - General Internal Medicine 09/11/15 documented as of this encounter
--- OUTSIDE RECORDS SUMMARY | 2024-08-24 14:26 | XMS_ITS | Encounter Summary ---
Author Organization [employer] Address [address] [facility] 7t [place] [address] Care Team Providers Care Food And Beverage Attendant Name Role Phone To Connelly MD Primary Care Provide r Reason for Visit * Reason Comments Med Refill Encounter Details Date Type Department Care Team ([facility] st Contact Info) Description 04/11/2023 Refill [facility] MEDICINE [address] [place], [place] [phone] To Connelly MD [address] [place], [place] [phone] Essential hypertension Social History Tobacco Use Types Packs/Day Years Used Date Smoking Tobacco: Never Passive Smoke Exposure: Never Smokeless Tobacco: Never Depression Answer Date Recorded Patient Health Questionnaire-9 Score 3 11/12/2022 Housing Stability Answer Date Recorded What is your housing situation today? I have demetrio pimentel 04/11/[address] you li ve. Do you have problems with any of the following? None of the above 04/11/2023 Food Insecurity Answer Date Recorded Within the past 12 months, y ou worried that your food would run out before you got money to buy more: Never True 04/11/2023 Within the past 12 months,th e food you bought just didn't last and you didn't have enough money to get more: Never True Transportation Answer Date Recorded In the past 12 months, has l ack of transportation kept you from medical appts, meetings, work or from getting things needed for daily living? No 04/11/2023 Utilities Answer Date Recorded In the past 12 months, has t he electric, gas, oil or water company threatened to shut off services in your home? No 04/11/2023 Depression Answer Date Recorded Patient Health Questionnaire-2 Score 0 11/12/2022 Comments Unknown Sex and Gender Information Value [...] Assessment Noted Time PHQ-9 Depression Total Score: 3 11/13/19 23 11:08 AM EDT documented as of this encounter Care Teams Food And Beverage Attendant Relationship Specialty Start Date End Date To Connelly MD [address] [place] [address] PCP - General Internal Medicine 09/11/15 documented as of this encounter
--- OUTSIDE RECORDS SUMMARY | 2024-08-24 14:26 | XMS_ITS | Encounter Summary ---
Author Organization [employer] Address [address] [facility] 7t [place] [address] Care Team Providers Care Software Support Technician Name Role Phone To Connelly MD Primary Care Provide r Reason for Visit * Reason Comments Med Refill Encounter Details Date Type Department Care Team ([facility] st Contact Info) Description 01/27/2024 Refill [facility] MEDICINE [address] [place], [place] [phone] Eulalia Mckenna MD [address] [place], [place] [phone] Social History Tobacco Use Types Packs/Day Years [...] documented as of this encounter Care Teams Software Support Technician Relationship Specialty Start Date End Date To Connelly MD [address] [place] [address] PCP - General Internal Medicine 09/11/15 documented as of this encounter
--- OUTSIDE RECORDS SUMMARY | 2024-08-24 14:27 | XMS_ITS | Encounter Summary ---
Author Organization [employer] Address [address] [facility] 7t [place] [address] Care Team Providers Care Machine I Coremaker Name Role Phone To Connelly MD Primary Care Provide r Encounter Details Date Type Department Care Team (Late st Contact Info) Description 06/10/2022 Orders Only [facility] MEDICINE [address] [place], [place] [phone] Soraya Sarabia, RN Social History Tobacco Use Types Packs/Day Years Used Date Smoking Tobacco: Never Assessed Comments Unknown Sex and Gender Information Value Date Recorded Sex Assigned at Female 04/13/2022 10:16 AM EDT Legal Sex Female 10:16 AM EDT Gender Identity Female 04/13/2022 10:16 AM EDT Sexual Orientation Straight 04/13/2022 10 :16 AM EDT documented as of this encounter Plan of Treatment Not on file documented as of this encounter Visit Diagnoses Not on filedocumented in this encounter Care Teams Machine I Coremaker Relationship Specialty Start Date End Date To Connelly MD [address] [place], [place] [phone] PCP - General Internal Medicine 09/11/15 documented as of this encounter
--- OUTSIDE RECORDS SUMMARY | 2024-08-24 14:27 | XMS_ITS | Encounter Summary ---
Author Organization [email or web address] Address [address] [facility] [address] [place] [address] Care Team Providers Care Ornamental Rail Installer Name Role Phone To Connelly MD Primary Care Provide r Reason for Visit * Reason Onset Date Comments Chart Prep 08/10/2024 Encounter Details Date Type Department Care Team ([facility] st Contact Info) Description 08/10/[address] [facility] MEDICINE [address] [place], [place] [phone] To Connelly MD [address] [place], [place] [phone] Chart Prep Social History Tobacco Use Types Packs/Day Years [...] encounter Miscellaneous Notes * Telephone Encounter - Gerri Torres MA - 08/10/2024 4:14 PM EST Chart Prep Labs: not done Images: done Vaccines due: Covid Due, Hep B Due, PCV20 Due, and Shingles in pharmacy Due Referrals: Radiology Completed Screenings: PAP and Foot Exam Overdue care gaps: A1C, Glucose, Sbirt, and Oral Health Chart prep for upcoming appt with Dr.Esparza isaacs. LB documented in this encounter Plan of Treatment [...] documented as of this encounter Care Teams Ornamental Rail Installer Relationship Specialty Start Date End Date To Connelly MD [address] [place] [address] PCP - General Internal Medicine 09/11/15 documented as of this encounter
--- OUTSIDE RECORDS SUMMARY | 2024-08-24 14:27 | XMS_ITS | Encounter Summary ---
Author Organization [facility] Address [address] [place] [address] 7t [place] [address] Care Team Providers Care Wool Cleaner Name Role Phone To Connelly MD Primary Care Provide r Reason for Referral * Imaging (Routine) - Authorized Specialty Diagnoses / Procedures Referred By Contac t Referred To Contact Radiology Diagnoses Postmenopausal Procedures BD DEXA Axial To Connelly MD [address] [place] [address] Phone: tel: fax: [address] Phone: tel: fax: Referral ID Status Reason Start Date Expiration Date V isits Requested Visits Authorized [id number] Authorized 08/24/2024 08/24/2025 1 1 Reason for Visit * Reason Comments Annual Exam Encounter Details Date Type Department Care Team (Late st Contact Info) Description 08/24/2024 10:30 AM EDT Office Visit [facility] [address] [place], [place] [phone] To Connelly MD [address] [place], [place] [phone] Type 2 diabetes mellitus with hyperglycemia, with long-term current use of insulin (CMS/HCC) (Primary Dx); Routine physical examination; Elevated LFTs; Essential hypertension; Preventative health care; Type 2 diabetes mellitus without complication, without long-term current use of insulin (CMS/HCC); Postmenopausal Social History Tobacco Use Types Packs/Day Years [...] your housing situation today? I have demetrio margarito 11/16/[address] you li [...] AM EDT documented as of this encounter Last Filed Vital Signs Vital Sign Reading Time Taken Comments Blood Pressure 156/87 08/24/2024 10:29 AM EDT no chest pain, palpitations, or SOB Pulse 75 08/24/2024 10:29 AM EDT Temperature 36.2 ??C (97.1 ??F) 08/24/2024 1 0:29 AM EDT Respiratory Rate 20 08/24/2024 10:2 9 AM EDT Oxygen Saturation 98% 08/24/2024 10: 29 AM EDT Inhaled Oxygen Concentration - - Weight 61.2 kg (135 lb) 08/24/2024 10:2 9 AM EDT Height 160 cm (5' 3 ) 08/24/2024 10:29 AM EDT Body Mass Index 23.91 08/24/2024 10:29 AM EDT documented in this encounter Progress Notes * To Baires MD - 08/24/2024 10:30 AM EDT SUBJECTIVE Odalys Sharp is a 63 y.o. female who presents for Annual Exam. Diabetes She presents for her follow-up diabetic visit. She has type 2 diabetes mellitus. Pertinent negatives for hypoglycemia include no dizziness or headaches. Pertinent negatives for diabetes include no chest pain and no fatigue. Review of Systems Constitutional: Negative for appetite change, fatigue and fever. HENT: Negative for ear pain, hearing loss and sore throat. Eyes: Negative for pain and visual disturbance. Respiratory: Negative for cough and shortness of breath. Cardiovascular: Negative for chest pain and palpitations. Gastrointestinal: Negative for abdominal pain, nausea and vomiting. Genitourinary: Negative for dysuria. Skin: Negative for rash. Neurological: Negative for dizziness and headaches. Psychiatric/Behavioral: Negative for sleep disturbance. Allergies Allergen Reactions Aspirin GI intolerance OBJECTIVE Vitals: 08/24/24 1029 BP: (!) 156/87 BP Location: Left arm Patient Position: Sitting BP Cuff Size: Adult Pulse: 75 Resp: 20 Temp: 97.1 ??F (36.2 ??C) TempSrc: Temporal SpO2: 98% Weight: 135 lb (61.2 kg) Height: 5' 3 (1.6 m) Physical Exam Vitals reviewed. Constitutional: General: She is awake. Appearance: Normal appearance. She is well-developed. HENT: Head: Normocephalic and atraumatic. Right Ear: Tympanic membrane, ear canal and external ear normal. Left Ear: Tympanic membrane, ear canal and external ear normal. Nose: Nose normal. Mouth/Throat: Mouth: Mucous membranes are moist. Pharynx: Oropharynx is clear. Eyes: Extraocular Movements: Extraocular movements intact. Conjunctiva/sclera: Conjunctivae normal. Pupils: Pupils are equal, round, and reactive to light. Cardiovascular: Rate and Rhythm: Normal rate and regular rhythm. Pulses: Normal pulses. Heart sounds: Normal heart sounds. Pulmonary: Effort: Pulmonary effort is normal. Breath sounds: Normal breath sounds. Chest: Breasts: Right: Normal. No swelling, bleeding, inverted nipple, mass or nipple discharge. Left: Normal. No swelling, bleeding, inverted nipple, mass or nipple discharge. Abdominal: General: Bowel sounds are normal. Palpations: Abdomen is soft. Musculoskeletal: General: Normal range of motion. Cervical back: Normal range of motion and neck supple. Lymphadenopathy: Upper Body: Right upper body: No supraclavicular or axillary adenopathy. Left upper body: No supraclavicular or axillary adenopathy. Skin: General: Skin is warm. Capillary Refill: Capillary refill takes less than 2 seconds. Neurological: General: No focal deficit present. Mental Status: She is alert and oriented to person, place, and time. Deep Tendon Reflexes: Reflexes are normal and symmetric. Psychiatric: Mood and Affect: Mood normal. Assessment/Plan Problem List Items Addressed This Visit Type 2 diabetes mellitus without complication, without long-term current use of insulin ([facility]) -Primary Patient is here for a follow up DM controlled Pt stopped Metformin on her own, she stated she has been monitoring her glucose regularly and sinceMetformin was giving her diarrhea she decided to stop it. I asked that in the future she let us know when she does things like this and I caution her that she may experience sudden onset of hyperglycemia again in the future if she is without Metformin Hgb A1c 08/24/2024: 6.0 from 5.9 Pt stopped both Metformin and Lantus Plan: Continue close monitoring Patient no longer being followed by our Pharmacy CDTM program for DM Follow up with me in 4 months Relevant Orders Lipid Panel, Standard Routine physical examination Physical exam today within normal limits Elevated LFTs Pt here for a follow up Liver US 10/04/2022 showed: Hepatomegaly with increased parenchymal echogenicity which is nonspecific but could be seen in the setting of hepatic steatosis or hepatocellular disease. Repeat LFTS showed persistent elevation 11/08/2022 Viral Hep serologies B and C Neg. Pt was referred to Dr. Bashir [facility] Weeds And Pest Inspector for evaluation. Pt no showed to appointment. She was subsequently referred to [facility] but right now they have no availability Patient was referred to [facility] We[employer] And Pest Inspector. 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 Elastography: Liver elastography measurements are consistent with a moderate risk for clinically significant liver fibrosis (METAVIR Stage F2-F3). , Patient was last seen by GI 07/25/2024 and ordered repeat labs and US and will return to their office in 6 months Essential hypertension Patient with Hypertension Here for a follow up She is supposed to be on a regimen of: Hctz 25 mg po daily, and Amlodipine 5 mg po daily Most recent electrolytes, Bun and Creatinine done on: Lab Results Component Value Date NA 132 (L) 12/04/2023 NA 132 (L) 12/03/2023 K 4.5 12/04/2023 K 4.5 12/03/2023 CL 98 12/04/2023 CL 95 (L) 12/03/2023 BUN 11 12/04/2023 BUN 16 12/03/2023 CREATININE 0.82 12/04/2023 CREATININE 0.89 12/03/2023 were within normal limits. Will repeat patient advised to adhere to a low sodium diet, encouraged about medication compliance, counseled about weight loss. Last visit pt told me she stopped taking the Lisinopril 40 mg po daily at some point Plan: Restart Lisinopril 20 mg po daily Relevant Medications lisinopril (Prinivil) 20 MG tablet Preventative health care Mammogram: 06/09/2024 negative Pap Smear: positive HPV, ASCUS referred for Colposcopy, Pt under the care of Dr. Shoemaker last seen 01/17/2024 LEEP Cone Bx showed: LEEP cone. The patient has no complaints. The patient showed the following: A. Cervix, cone excision: - Focal residual high grade squamous intraepithelial lesion (SULEIMAN 2-3); negative margins. - Background inflamed cervical transformation zone mucosa with reactive changes. B. Cervix, top hat, excision: Squamous mucosa within normal limits; no endocervical epithelium identified. C. Endocervix, post cone, curettage: Superficial fragments of endocervical and atrophic squamous epithelium; otherwise within normal limits Colonoscopy: Appointment scheduled for 01/19/2023, pt no showed. Cologuard 08/30/2023 NEGATIVE Other Visit Diagnoses Postmenopausal Relevant Orders BD DEXA Axial documented in this encounter Miscellaneous Notes * Assessment & Plan Note - To Baires MD - 08/24/2024 11:01 AM EDT Associated Problem(s): Routine physical examination Physical exam today within normal limits * Assessment & Plan Note - To Baires MD - 08/24/2024 10:42 AM EDT Associated Problem(s): Preventative health care Mammogram: 06/09/2024 negative Pap Smear: positive HPV, ASCUS referred for Colposcopy, Pt under the care of Dr. Shoemaker last seen 01/17/2024 LEEP Cone Bx showed: LEEP cone. The patient has no complaints. The patient showed the following: A. Cervix, cone excision: - Focal residual high grade squamous intraepithelial lesion (SULEIMAN 2-3); negative margins. - Background inflamed cervical transformation zone mucosa with reactive changes. B. Cervix, top hat, excision: Squamous mucosa within normal limits; no endocervical epithelium identified. C. Endocervix, post cone, curettage: Superficial fragments of endocervical and atrophic squamous epithelium; otherwise within normal limits Colonoscopy: Appointment scheduled for 01/19/2023, pt no showed. Cologuard 08/30/2023 NEGATIVE * Assessment & Plan Note - To Baires MD - 08/24/2024 10:41 AM EDT Associated Problem(s): Essential hypertension Patient with Hypertension Here for a follow up She is supposed to be on a regimen of: Hctz 25 mg po daily, and Amlodipine 5 mg po daily Most recent electrolytes, Bun and Creatinine done on: Lab Results Component Value Date NA 132 (L) 12/04/2023 NA 132 (L) 12/03/2023 K 4.5 12/04/2023 K 4.5 12/03/2023 CL 98 12/04/2023 CL 95 (L) 12/03/2023 BUN 11 12/04/2023 BUN 16 12/03/2023 CREATININE 0.82 12/04/2023 CREATININE 0.89 12/03/2023 were within normal limits. Will repeat patient advised to adhere to a low sodium diet, encouraged about medication compliance, counseled about weight loss. Last visit pt told me she stopped taking the Lisinopril 40 mg po daily at some point Plan: Restart Lisinopril 20 mg po daily * Assessment & Plan Note - To Baires MD - 08/24/2024 10:38 AM EDT Associated Problem(s): Type 2 diabetes mellitus without complication, without long-term current useof insulin ([facility]) Patient is here for a follow up DM controlled Pt stopped Metformin on her own, she stated she has been monitoring her glucose regularly and sinceMetformin was giving her diarrhea she decided to stop it. I asked that in the future she let us know when she does things like this and I caution her that she may experience sudden onset of hyperglycemia again in the future if she is without Metformin Hgb A1c 08/24/2024: 6.0 from 5.9 Pt stopped both Metformin and Lantus Plan: Continue close monitoring Patient no longer being followed by our Pharmacy CDTM program for DM Follow up with me in 4 months * Assessment & Plan Note - To Baires MD - 08/24/2024 10:36 AM EDT Associated Problem(s): Elevated LFTs Pt here for a follow up Liver US 10/04/2022 showed: Hepatomegaly with increased parenchymal echogenicity which is nonspecific but could be seen in the setting of hepatic steatosis or hepatocellular disease. Repeat LFTS showed persistent elevation 11/08/2022 Viral Hep serologies B and C Neg. Pt was referred to Dr. Bashir [employer] And Pest Inspector for evaluation. Pt no showed to appointment. She was subsequently referred to [facility] but right now they have no availability Patient was referred to [facility] N[employer]ious Weeds And Pest Inspector. 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 Elastography: Liver elastography measurements are consistent with a moderate risk for clinically significant liver fibrosis (METAVIR Stage F2-F3). , Patient was last seen by GI 07/25/2024 and ordered repeat labs and US and will return to their office in 6 months documented in this encounter Plan of Treatment Pending Results Name Type Priority Associated Diagnoses Date /Time Lipid Panel, Standard Lab Routine Type 2 diabetes mellitus without complication, without long-term current use of insulin ([facility]) 08/24/2024 11:17 AM EDT Comprehensive Metabolic Panel Lab Routine Essential hypertension Type 2 diabetes mellitus without complication, without long-term current use of insulin ([facility]) 08/24/2024 11:17 AM EDT Scheduled Orders Name Type Priority Associated Diagnoses Orde r Schedule BD DEXA Axial Imaging Routine Postmenopausal Expected: 08/24/2024, Expires: 08/24/2025 documented as of this encounter Goals Goal Patient Goal Type Associated Problems Recent Progress Patient-Stated? Author Keep fasting blood glucose between 70 and 130 Result Component Type 2 diabetes mellitus without complication, without long-term current use of insulin Improving(12/13 4:48 PM EDT) No Jace Em, BrennonD documented as of this encounter Procedures Procedure Name Priority Date/Time Associated Diagnosis Comments LIPID PANEL, STANDARD Routine 08/24/2024 11:17 AM EDT Type 2 diabetes mellitus without complication, without long-term current use of insulin (CMS/[facility]) COMPREHENSIVE METABOLIC PANEL Routine 08/24/2024 11:17 AM EDT Essential hypertension Type 2 diabetes mellitus without complication, without long-term current use of insulin ([facility]) POCT GLYCATED HEMOGLOBIN, TOTAL Routine 08/24/2024 10:41 AM EDT Type 2 diabetes mellitus with hyperglycemia, with long-term current use of insulin ([facility]) POCT GLUCOSE Routine 08/24/2024 10:39 AM EDT Type 2 diabetes mellitus with hyperglycemia, with long-term current use of insulin ([facility]) documented in this encounter Results * POCT HGB A1C (08/24/2024 10:41 AM EDT) Hemoglobin A1C 6.0 4.0 - 6.0 % QC Media Lot # [id number] Lot# Expiration Date Blood 08/24/2024 10:4 1 AM EDT To Baires MD POINT OF CARE TEST EN TER/EDIT ORDERABLES Final Result * POCT Glucose (08/24/2024 10:39 AM EDT) Glucose Blood, POC 157 60 - 200 mg/dL QC Media Lot # [id number] Lot# Expiration Date [id number] Blood Capillary blood specimen / Unknown 08/24/2024 10:39 AM EDT To Baires MD POINT OF CARE TEST EN TER/EDIT ORDERABLES Final Result documented in this encounter Visit Diagnoses Diagnosis Type 2 diabetes mellitus with hyperglycemia, with long-term current use of insulin ([facility])- Primary Routine physical examination Routine general medical examination at a health care facility Elevated LFTs Other abnormal blood chemistry Essential hypertension Unspecified essential hypertension Preventative health care Routine general medical examination at a health care facility Type 2 diabetes mellitus without complication, without long-term current use of insulin ([facility]) Postmenopausal Asymptomatic postmenopausal status (age-related) (natural) documented in this encounter Additional Health Concerns Assessment Noted Time PHQ-9 Depression Total Score: 5 11/16/19 24 2:25 PM EDT documented as of this encounter Care Teams Wool Cleaner Relationship Specialty Start Date End Date To Connelly MD [address] [place] [address] PCP - General Internal Medicine 09/11/15 documented as of this encounter
--- OUTSIDE RECORDS SUMMARY | 2024-08-24 14:27 | XMS_ITS | Encounter Summary ---
Author Organization [employer] Address [address] [facility] 7t [place] [address] Care Team Providers Care Cnc Mechanic Name Role Phone To Connelly MD Primary Care Provide r Encounter Details Date Type Department Care Team (Latest Contact Info) Description 08/24/2024 Travel Social History Tobacco Use Types Packs/Day Years [...] documented as of this encounter Care Teams Cnc Mechanic Relationship Specialty Start Date End Date To Connelly MD [address] [place] [id number] PCP - General Internal Medicine 09/11/15 documented as of this encounter
--- OUTSIDE RECORDS SUMMARY | 2024-08-24 14:27 | XMS_ITS | Encounter Summary ---
Author Organization [employer] Address [address] [facility] [address]t [place] [address] Care Team Providers Care Channel Cementer Outsole Machine Name Role Phone To Connelly MD Primary Care Provide r Reason for Visit * Reason Onset Date Comments Medication Question 08/14/2024 Med Refill 08/14/2024 Encounter Details Date Type Department Care Team ([facility] st Contact Info) Description 08/14/2024 Refill [facility] [address] [place], [place] [phone] To Connelly MD [address] [place], [place] [phone] Social History Tobacco Use Types Packs/Day Years [...] encounter Miscellaneous Notes * Telephone Encounter - Carrie Brooks RN - 08/14/2024 1:20 PM EST Telephone call placed to pt's daughter Tere on HIPAA to clarify below message. Pt's lancing device is broken, the top of it is lost. Daughter confirmed that pt uses freestyle lite DM supplies. Confirmed pharmacy on file. Queued * Telephone Encounter - Louie Linn - 08/14/2024 12:02 PM EST Tc from pt Daughter requesting a new pen needle due to parents old one being broken and not having the Bottom Part. Contact pt at [phone] documented in this encounter Plan of Treatment [...] documented as of this encounter Care Teams Channel Cementer Outsole Machine Relationship Specialty Start Date End Date To Connelly MD [address] [place] [address] PCP - General Internal Medicine 09/11/15 documented as of this encounter
--- OUTSIDE RECORDS SUMMARY | 2024-08-24 14:27 | XMS_ITS | Encounter Summary ---
Author Organization [employer] Address [address] [facility] 7t [place] [address] Care Team Providers Care Document Controller Name Role Phone To Connelly MD Primary Care Provide r Reason for Visit * Reason Comments Med Change Request Encounter Details Date Type Department Care Team ([facility] st Contact Info) Description 07/12/2023 Refill [facility] [address] [place], [place] [phone] Wanda Smith FNP [address] [place], [place] [phone] Social History Tobacco Use Types Packs/Day Years Used Date Smoking Tobacco: Never Passive Smoke Exposure: Never Smokeless Tobacco: Never Depression Answer Date Recorded Patient Health Questionnaire-9 Score 3 11/12/2022 Housing Stability Answer Date Recorded What is your housing situation today? I have demetriovijay pimentel 04/11/[address] you [...] encounter Miscellaneous Notes * Telephone Encounter - Martine Meier RN - 07/22/2023 10:49 AM EST FYI, pt reports rash symptoms almost entirely resolved with otc treatment. * Telephone Encounter - Froylan Beaulieu RN - 07/14/2023 2:55 PM EST T/C to pt. For below message, No answer. LVM to call back on [phone]. Can you contact patient and see what other pharmacy she would like me to send this script to please documented in this encounter Plan of Treatment Not on file documented as of this encounter Visit Diagnoses Not on filedocumented in this encounter Additional Health Concerns Assessment Noted Time PHQ-9 Depression Total Score: 3 11/13/19 23 11:08 AM EDT documented as of this encounter Care Teams Document Controller Relationship Specialty Start Date End Date To Connelly MD [address] [place] [id number] PCP - General Internal Medicine 09/11/15 documented as of this encounter
--- OUTSIDE RECORDS SUMMARY | 2024-08-24 14:27 | XMS_ITS | Encounter Summary ---
Author Organization [employer] Address [address] [facility] 7t [place] [address] Care Team Providers Care Electroplater Name Role Phone To Connelly MD Primary Care Provide r Reason for Visit * Reason Onset Date Comments Insurance 08/24/2024 Encounter Details Date Type Department Care Team ([facility] st Contact Info) Description 08/24/2024 Telephone [facility] [address] [place], [place] [phone] To Connelly MD [address] [place], [place] [phone] Insurance Social History Tobacco Use Types Packs/Day Years [...] encounter Miscellaneous Notes * Telephone Encounter - Sherry De La Garza - 08/24/2024 10:19 AM EDT Patient walked in with new insurance will change with insurance enrollment now. documented in this encounter Plan of Treatment [...] documented as of this encounter Care Teams Electroplater Relationship Specialty Start Date End Date To Connelly MD [address] [place] [address] PCP - General Internal Medicine 09/11/15 documented as of this encounter
--- OUTSIDE RECORDS SUMMARY | 2024-08-24 14:27 | XMS_ITS | Encounter Summary ---
Author Organization [employer] Address [address] [facility] 7t [place] [address] Care Team Providers Care Ware Finisher Name Role Phone To Connelly MD Primary Care Provide r Reason for Visit * Reason Comments Med Refill Encounter Details Date Type Department Care Team ([facility] st Contact Info) Description 05/16/2024 Refill [facility] [address] [place], [place] [phone] Deena Cuevas MD [address] [place], [place] [phone] Essential hypertension Social History Tobacco Use Types [...] documented as of this encounter Care Teams Ware Finisher Relationship Specialty Start Date End Date To Connelly MD [address] [place] [address] PCP - General Internal Medicine 09/11/15 documented as of this encounter
--- OUTSIDE RECORDS SUMMARY | 2024-08-24 14:27 | XMS_ITS | Encounter Summary ---
Author Organization [employer] Address [address] [facility] [address]t [place] [address] Care Team Providers Care Computer Teacher Name Role Phone To Connelly MD Primary Care Provide r Encounter Details Date Type Department Care Team (Late st Contact Info) Description 08/24/2024 Orders Only GENERIC EXTERNAL DATA DEPARTMENT Provider, Generic External Data Social History Tobacco Use Types Packs/Day Years [...] as of this encounter Plan of Treatment Pending Results Name Type Priority Associated Diagnoses Date /Time Hepatic Function Panel Lab Routine 11:17 AM EDT documented as of this encounter Goals Goal Patient Goal Type Associated Problems Recent Progress Patient-Stated? Author Keep fasting blood glucose between 70 and 130 Result Component Type 2 diabetes mellitus without complication, without long-term current use of insulin Improving(12/13 4:48 PM EDT) No Jace Em, BrennonD documented as of this encounter Procedures Procedure Name Priority Date/Time Associated Diagnosis Comments HEPATIC FUNCTION PANEL Routine 08/24/2024 11:17 AM EDT documented in this encounter Visit Diagnoses Not on filedocumented in this encounter Additional Health Concerns Assessment Noted Time PHQ-9 Depression Total Score: 5 11/16/19 24 2:25 PM EDT documented as of this encounter Care Teams Computer Teacher Relationship Specialty Start Date End Date To Connelly MD [address] [place] [address] PCP - General Internal Medicine 09/11/15 documented as of this encounter
--- OUTSIDE RECORDS SUMMARY | 2024-08-24 14:27 | XMS_ITS | Clinical Summary ---
Author Organization [employer] Address [address] [place] [address] Care Team Providers Care Director Fundraising Name Role Phone To Connelly MD Primary Care Provide r Allergies Active Allergy Reactions Criticality Noted Date Comments Aspirin GI intolerance High 12/04/2023 Medications lidocaine (Lidoderm) 5 % patch Place 1 patch on the skin at bed time. 1 Active loratadine (Claritin) 10 MG tablet Take 1 tablet (10 mg) by mouth in the morning. 30 tablet 11 4 Active hydrocortisone 0.5 % ointment Apply topically 2 times daily. 28 g 4 Active insulin pen needle (BD Pen Needle Geena 2nd Gen) 32G x 4 mm miscIndications: Hyperglycemia Use once a day with Lantus 30 each 4 Active Alcohol Swabs (Alcohol Pads) 70 % pads test daily before all meals/snacks and once before bedtime. 100 each 4 Active Ketotifen Fumarate 0.035 % solution TAKE 1 DROP TO EYES TWICE A DAY NEEDED FOR ALLERGIES 5 mL 1 4 Active Blood Glucose Monitoring Suppl (FreeStyle Lite) w/Device kit INJECT UNDER THE SKIN 2 TIMES DAILY. TEST DAILY BEFORE ALL MEALS/SNACKS AND ONCE BEFORE BEDTIME.*NC 4 Active metFORMIN XR (Glucophage-XR) 500 MG 24 hr tabletIndication s:Type 2 diabetes mellitus with hyperglycemia, with long-term current use of insulin (CMS/HCC) Take 1 tablet (500 mg) by mouth 2 times daily. 180 tablet 1 4 Active hydroCHLOROthiaz brenda (HYDRODiuril) 25 MG tabletIndication s:Essential hypertension Take 1 tablet by mouth every day 90 tablet 4 Active amLODIPine (Norvasc) 5 MG tabletIndication s:Essential hypertension TAKE 1 TABLET (5 MG) BY MOUTH IN THE MORNING. 90 tablet 3 4 Active Alcohol Sheets (Alcoh-Wipe) sheetIndications :Hyperglycemia Test daily before all meals/snacks and once before bedtime. 1 each 4 Active FreeStyle lancetsIndicatio ns:Hyperglycemia 1 each by Other route 2 times daily. Use bid, dx type 2 diabetes 60 each 11 4 03/23/20 25 Active glucose blood (FREESTYLE LITE) test stripIndications :Hyperglycemia Use bid. Dx diabetes 60 each 11 4 Active Diclofenac Sodium (Voltaren) 1 % gel Apply 2 g topically every 6 (six) hours. 50 g 1 4 Active Lancet Devices (Lancing Device) misc Use to check blood sugar two times daily 1 each 5 Active lisinopril (Prinivil) 20 MG tabletIndication s:Essential hypertension Take 1 tablet (20 mg) by mouth Once per day. 30 tablet 6 5 08/25/19 26 Active lisinopril 40 MG tabletIndication s:Essential hypertension Take 1 tablet by mouth every day 90 tablet 1 4 08/25/19 25 Discontin ued(Dose adjustmen t) Active Problems Problem Noted Date Diagnosed Date Routine physical examination 08/24/2024 Assessment & Plan (08/24/2024 11:01 AM EDT): Physical exam today within normal limits Type 2 diabetes mellitus wit hout complication, without long-term current use of insulin 12/06/2023 Overview (01/31/2024): Pharmacotherapy: Updated 01/31/24 - Metformin ER 500mg - 1 Tablet BID (decreased due to elevated LFTs) - Lantus 20 units daily - DECREASE to 15 UNITS History: Updated 01/31/24 Established CDTM 01/10/24. Assisted by daughter Tere. Per Odalys, morning BG has been between 70-90 mg/dl. Similarly, highest BG reading at night ~118. These are at goal, reported hypoglycemia with Lantus dose at 28. Used orange juice to resolve. Has returned to smaller dose of 20 units. In order to get full picture of BG, professional CGM used for 15 days. Remarkable for frequent hypoglycemic events. Patient denies signs and symptoms of hypoglycemia. Most occurrences happen overnight. - On ASA: N, Allergy - On Statin: N, most recent LFTs elevated, defer to PCP - Last Eye Exam: no records - Last Dental Exam: no records Assessment & Plan (08/24/2024 10:58 AM EDT): Patient is here for a follow up DM controlled Pt stopped Metformin on her own, she stated she has been monitoring her glucose regularly and since Metformin was giving her diarrhea she decided to [...] Follow up with me in 4 months Assessment & Plan (03/23/2024 1:15 PM EDT): Patient is here for a follow up Recently diagnosed Diabetes Mellitus Improving Hgb A1c 03/23/2024: 5.9 Pt is currently on: Metformin 500 mg po BID. OFF Lantus 1 Pt is on an LAURENCE inhibitor: Lisinopril Plan: Continue current regimen Patient being followed by our Pharmacy CDTM program for DM Follow up with me in 4 months Assessment & Plan (01/31/2024 3:05 PM EDT): Assessment: - Likely at goal of A1c less than 7% or fasting BG between 70-130 mg/dL per ADA guidelines. GMI indicates 4.9% Plan/ Recommendations: - DROP Lantus to 15 units at bedtime to resolve hypoglycemia. - Repeat A1c in 1 month - Patient would like to switch to oral therapy for DM control, and this is promising based on results of CGM report. May consider Jardiance or Trulicity for DM control; no hepatic adjustments needed. Monitoring: Hemoglobin A1c Date Value 12/04/2023 >14.0 % (H) 12/24/2020 5.9 % of total Hgb (H) Hemoglobin A1C (%) Date Value 12/06/2023 15.0 (A) LDL Cholesterol (mg/dL (calc)) Date Value 11/06/2022 85 HDL Cholesterol (mg/dL) Date Value 11/06/2022 40 (L) No results found for: B12 Assessment & Plan (01/13/2024 1:21 PM EDT): Patient is here for a follow up Recently diagnosed Diabetes Mellitus Improving Glucometer: average 148 Hgb A1c 12/06/2023: 15. Will repeat next month Pt is currently on: Metformin 500 mg po daily and Lantus 24 units subcutaneous at bedtime. Pt is on an LAURENCE inhibitor: Lisinopril Plan: Continue Lantus to 24 units subcutaneous at bedtime Patient being followed by our Pharmacy CDTM program for DM Follow up with me in 3 months Assessment & Plan (01/10/2024 4:50 PM EDT): Assessment: - Partially at goal of A1c less than 7% or fasting BG between 70-130 mg/dL per ADA guidelines. Plan/ Recommendations: - START Professional CGM on 01/12 following PCP visit and RETURN to clinic in 14 days for data download - CONTINUE with current medications and twice daily SMBG at home. Monitoring: Hemoglobin A1c Date Value 12/04/2023 >14.0 % (H) 12/24/2020 5.9 % of total Hgb (H) Hemoglobin A1C (%) Date Value 12/06/2023 15.0 (A) LDL Cholesterol (mg/dL (calc)) Date Value 11/06/2022 85 HDL Cholesterol (mg/dL) Date Value 11/06/2022 40 (L) No results found for: B12 Assessment & Plan (12/10/2023 1:16 PM EDT): Patient is here for a sick visit Recently seen in the ER for hyperglycemia and newly diagnosed Diabetes Mellitus Uncontrolled Glucometer: Hgb A1c 12/06/2023: 15 Pt is currently on: Metformin 500 mg po daily and Lantus 16 units subcutaneous at bedtime. Pt is on an LAURENCE inhibitor: Lisinopril Plan: Increase Metformin to 500 mg 2 tabs po with the evening meal, then after 1 week, increase to 1 tab in AM and 2 tabs at PM and after 2 weeks increase to 2 tabs po BID Increase Lantus to 20 units subcutaneous at bedtime, increase by 2 units at bedtime daily if fasting Blood Sugar continues to be > 160. Not to exceed 30 units subcutaneous at bedtime Referral to Pharmacy CDTM program for DM, once hyperglycemia resolved might consider a GLP1 or an SGLT2 Follow up with me in 4 weeks Cramps of lower extremity 12/03/2023 Assessment & Plan (12/05/2023 2:41 PM EDT): Its probably multifactorial, mainly lumbar disc disease exacerbated by cold temp at night Advised to do stretching exercises at bedtime and prn Use diclofenac gel prn Advised to wear warm socks overnight Check BMP to ro electrolyte dis balance/ hyperglycemia and rx prn. Stay hydrated Impacted cerumen of right ear 08/19/2023 Assessment & Plan (08/19/2023 10:50 AM EST): Debrox x 5 days Follow up with RN for ear lavage Chronic pain of right knee 08/19/2023 Assessment & Plan (11/16/2023 2:43 PM EDT): Previous x-ray right knee showed: Chondrocalcinosis of the bilateral tibiofemoral compartments which may reflect CPPD arthropathy. No large effusion. No acute fracture or dislocation. Patient was seen by Rheumatology and has a follow up December 08 Assessment & Plan (08/19/2023 11:11 AM EST): Previous x-ray right knee showed: Chondrocalcinosis of the bilateral tibiofemoral compartments which may reflect CPPD arthropathy. No large effusion. No acute fracture or dislocation. Rheumatology referral Elevated LFTs 11/12/2022 Assessment & Plan (08/24/2024 10:36 AM EDT): Pt here for a follow up Liver US 10/04/2022 showed: Hepatomegaly with increased parenchymal echogenicity which is nonspecific but could be seen in the setting of hepatic steatosis or hepatocellular disease. Repeat LFTS showed persistent elevation 11/08/2022 Viral Hep serologies B and C Neg. Pt was referred to Dr. Bashir [facility] for evaluation. Pt no showed to appointment. She was subsequently referred to [facility] but right now they have no availability Patient was referred to [facility]. Seen 01/25/2024 Of note she has a [...] return to their office in 6 months Assessment & Plan (03/23/2024 1:00 PM EDT): Back in August LFTs were noted to be elevated, unclear etiology Liver US 10/04/2022 showed: Hepatomegaly with increased parenchymal echogenicity which is nonspecific but could be seen in the setting of hepatic steatosis or hepatocellular disease. Repeat LFTS showed persistent elevation 11/08/2022 Viral Hep serologies B and C Neg. Pt was referred to Dr. Bashir Die Developer for evaluation. Pt no showed to appointment. She was subsequently referred to [facility] but right now they have no availability Patient was referred to [facility]. 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 Elastography: Liver elastography measurements are consistent with a moderate risk for clinically significant liver fibrosis (METAVIR Stage F2-F3). , Patient will return to their office in 6 months Assessment & Plan (01/13/2024 1:24 PM EDT): Back in August LFTs were noted to be elevated, unclear etiology Liver US 10/04/2022 showed: Hepatomegaly with increased parenchymal echogenicity which is nonspecific but could be seen in the setting of hepatic steatosis or hepatocellular disease. Repeat LFTS showed persistent elevation 11/08/2022 Viral Hep serologies B and C Neg. Pt was referred to Dr. Bashir Die Developer for evaluation. Pt no showed to appointment. She was subsequently referred to [facility] but right now they have no availability Patient was referred to [facility]. 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 Repeat LFTS showed persistent elevation 11/08/2022 Viral Hep serologies B and C Neg. Pt was referred to Dr. Bashir Die Developer for evaluation. Pt no showed to appointment. She was subsequently referred to [facility] but right now they have no availability Patient was referred to [facility]. 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 Repeat LFTS showed persistent elevation 11/08/2022 Viral Hep serologies B and C Neg. Pt was referred to Dr. Bashir Die Developer for evaluation. Pt no showed to appointment. 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 Repeat LFTS showed persistent elevation 11/08/2022 Viral Hep serologies B and C Neg. Total A positive IGM Pending Pt was referred to Dr. Bashir Die Developer for evaluation. Pt no showed to appointment Assessment & Plan (11/12/2022 11:18 AM EDT): Back in August LFTs were noted to be elevated, unclear etiology Liver US 10/04/2022 showed: IMPRESSION: Hepatomegaly with increased parenchymal echogenicity which is nonspecific but could be seen in the setting of hepatic steatosis or hepatocellular disease. Repeat LFTS showed persistent elevation 11/08/2022 Viral Hep serologies B and C Neg. Total A positive IGM Pending Plan; Will refer to liver clinic at [facility] Persistent depressive disorder 08/18/2022 Assessment & Plan (08/18/2022 1:57 PM EST): Patient declines [facility] referral. She was referred to [facility] and subsequently to [facility] She is on Paxil 20 mg po daily SULEIMAN III (cervical intraepith elial neoplasia grade III) with severe dysplasia 08/18/2022 Assessment & Plan (03/23/2024 1:05 PM EDT): Pt under the care of Dr. Shoemaker [...] atrophic squamous epithelium; otherwise within normal limits Assessment & Plan (12/10/2023 5:33 PM EDT): Pt finally seen by Dr. Shoemaker 12/06/23, Colposcopy showed SULEIMAN II. Pt has appointment with Dr. Shoemaker on Wednesday for follow up. Assessment & Plan (11/16/2023 2:49 PM EDT): Pt cancelled appt with on 10/26/23 and was r/s for 12/06/23, Assessment & Plan (08/19/2023 9:21 AM EST): NIL HPV positive Pap 02/2021 preceded by ASCUS HPV neg x 2 . Per ASCCP Guidelines pt needed Colposcopy. She was referred to [facility]. Pt no showed Will refer again. Discussed with patient importance of this Assessment & Plan (08/18/2022 2:01 PM EST): NIL HPV positive Pap 02/2021 preceded by ASCUS HPV neg x 2 . Per ASCCP Guidelines pt needed Colposcopy. She was referred to [facility] Preventative health care 08/18/2022 Assessment & Plan (08/24/2024 10:42 AM EDT): Mammogram: 06/09/2024 negative Pap Smear: positive HPV, [...] 01/19/2023, pt no showed. Cologuard 08/30/2023 NEGATIVE Assessment & Plan (12/10/2023 1:45 PM EDT): Mammogram: 10/12/2022 negative Pap Smear: positive HPV, ASCUS referred for Colposcopy, pt cancelled and rescheduled for December 05 Colonoscopy: Appointment scheduled for 01/19/2023, pt no showed. Cologuard 08/30/2023 NEGATIVE Assessment & Plan (11/16/2023 2:51 PM EDT): Mammogram: 10/12/2022 negative Pap Smear: positive HPV, ASCUS referred for Colposcopy, pt cancelled and rescheduled for December 05 Colonoscopy: Appointment scheduled for 01/19/2023, pt no showed. Cologuard 08/30/2023 NEGATIVE Assessment & Plan (08/19/2023 9:22 AM EST): Mammogram: 10/12/2022 negative Pap Smear: positive HPV, [facility]US referred for Colposcopy, pt no showed, referred again today Colonoscopy: Appointment scheduled for 01/19/2023, pt no showed. Assessment & Plan (11/12/2022 11:27 AM EDT): Mammogram: 10/12/2022 negative Pap Smear: positive HPV, ASCUS referred for Colposcopy Colonoscopy: Appointment scheduled for 01/19/2023 Assessment & Plan (08/18/2022 2:41 PM EST): Mammogram: 02/2021 required a biopsy that was negative for malignancy, pt is due for repeat Pap Smear: positive HPV, ASCUS referred for Colposcopy Colonoscopy: referred in the past but pt missed appointment Screening for colorectal cancer 08/18/2022 Assessment & Plan (11/16/2023 2:50 PM EDT): Cologuard 08/30/2023 normal Assessment & Plan (08/19/2023 10:52 AM EST): Pt no showed for evaluation once again Would like to try Cologuard instead Assessment & Plan (08/18/2022 2:42 PM EST): Will refer back, missed previous appointment Essential hypertension 12/03/2015 Assessment & Plan (08/24/2024 10:59 AM EDT): Patient with Hypertension Here for a follow [...] Plan: Restart Lisinopril 20 mg po daily Assessment & Plan (03/23/2024 4:05 PM EDT): Patient with Hypertension Here for a follow up She is supposed to be on a regimen of: Hctz 25 mg po daily, Lisinopril 40 mg po daily and Amlodipine 5 mg po daily Most recent electrolytes, Bun and Creatinine done on: 08/24/2023 were within normal limits. patient advised to adhere to a low sodium diet, encouraged about medication compliance, counseled about weight loss. Today she tells me she stopped taking the Lisinopril at some point but states her BP is elevated today because she just took her meds a few minutes ago, Plan: continue current regimen, follow up with RN in 2 weeks for BP check if still elevated will need to restart Lisinopril Assessment & Plan (12/10/2023 1:20 PM EDT): Patient with Hypertension Here for a follow up She is on a regimen of: Hctz 25 mg po daily, Lisinopril 40 mg po daily and Amlodipine 5 mg po daily Most recent electrolytes, Bun and Creatinine done on: 08/24/2023 were within normal limits. patient advised to adhere to a low sodium diet, encouraged about medication compliance, counseled about weight loss. Plan: continue current regimen Assessment & Plan (11/16/2023 2:38 PM EDT): Patient with Hypertension Here for a follow up She is on a regimen of: Hctz 25 mg po daily, Lisinopril 40 mg po daily and Amlodipine 5 mg po daily Most recent electrolytes, Bun and Creatinine done on: 08/24/2023 were within normal limits. patient advised to adhere to a low sodium diet, encouraged about medication compliance, counseled about weight loss. Plan: continue current regimen Assessment & Plan (08/19/2023 10:52 AM EST): Patient with Hypertension Here for a follow up She is on a regimen of: Hctz 25 mg po daily, Lisinopril 40 mg po daily and Amlodipine 5 mg po daily Most recent electrolytes, Bun and Creatinine done on: 09/07/2022 were within normal limits. patient advised to adhere to a low sodium diet, encouraged about medication compliance, counseled about weight loss. Today will order a repeat BMP Plan: continue current regimen Assessment & Plan (11/12/2022 11:15 AM EDT): Patient with Hypertension Uncontrolled She is on a regimen of: Hctz 25 mg po daily, Lisinopril 40 mg po daily and Amlodipine 2.5 mg po daily Most recent electrolytes, Bun and Creatinine done on: 09/07/2022 were within normal limits. patient advised to adhere to a low sodium diet, encouraged about medication compliance, counseled about weight loss. Plan: Increase Amlodipine to 5 mg po daily 1 month follow up Assessment & Plan (08/18/2022 3:08 PM EST): Patient with Hypertension Uncontrolled She is on a regimen of: Hctz 25 mg po daily and Lisinopril 40 mg po daily Most recent electrolytes, Bun and Creatinine done on: 04/14/2019 were within normal limits. She did not have the blood work I requested last visit. Ordered again today patient advised to adhere to a low sodium diet, encouraged about medication compliance, counseled about weight loss. Plan: Add Amlodipine 2.5 mg po daily 1 month follow up after labs Encounters Date Type Department Care Team Description 08/24/2024 10:30 AM EDT Office Visit [facility] [address] [place] [address] [phone] To Connelly MD Type 2 diabetes mellitus with hyperglycemia, with long-term current use of insulin ([facility]) (Primary Dx); Routine physical examination; Elevated LFTs; Essential hypertension; Preventative health care; Type 2 diabetes mellitus without complication, without long-term current use of insulin (CMS/HCC); Postmenopausal 08/24/2024 Orders Only GENERIC EXTERNAL DATA DEPARTMENT Provider, Generic External Data 08/24/2024 Telephone [facility] [address] [facility] [place] [address] To Connelly MD Insurance 08/24/2024 Travel 08/14/2024 Refill [facility] [address] [place] [address] To Connelly MD 08/14/2024 Patient Outreach [facility] [address] [place] [address] To Connelly MD Pre-visit Planning (Pre-visit planning - LVM ) 08/10/2024 Telephone [facility] [address] [facility] [place] [address] To Connelly MD Chart Prep from Last 3 Months Immunizations Name Administration Dates Next Due Hep A, Adult 04/01/2007 Hep B, adult 09/01/2010,04/01/2007 Influenza injectable quadrivalent preservative f ree 03/05/2021,08/18/2019 Influenza, IIV3, injectable 03/30/2014 Influenza, Split (incl. purified surface antigen ) 02/14/2013,03/09/2012 Influenza, seasonal, injectable, preservative fr ee 03/23/2024 TD (adult), 2 Lf tetanus tox oid, preservative free, adsorbed 03/13/2002 Tdap 02/01/2024,12/09/2012 Social History Tobacco Use Types Packs/Day Years Used Date Smoking Tobacco: Never Passive Smoke Exposure: Never Smokeless Tobacco: Never Tobacco Cessation:Counseling Given: Not Answered Alcohol Use Standard Drinks/Week Comments Never 0 [...] Orientation Straight 04/13/2022 10 :16 AM EDT Last Filed Vital Signs Vital Sign Reading [...] Mass Index 23.91 08/24/2024 10:29 AM EDT Plan of Treatment Health Maintenance Due Date Last Done Comments CT Colonography 1961 FIT 1961 FOBT 1961 Sigmoidoscopy 1961 Diabetes: Foot Exam 12/21/1971 Eye Exam 12/21/1971 Diabetes: Urine Protein Screening 1980 08/24/2024 Pneumococcal Vaccine: 50+ Years (1 of 2 - PCV) 1980 Hepatitis B Vaccines (3 of 3 - 19+ 3-dose series) 10/27/2010 09/01/2010, 04/01/2007 Zoster Vaccines (1 of 2) 12/21/2011 Colonoscopy 03/06/2021 COVID-19 Vaccine ( season) 2024 10/08/2020, 09/10/2020 Cervical Cancer Screening 07/02/2024 HPV/Cotest 07/02/2024 03/05/2021 Pap Smear 07/02/2024 03/05/2021 Lipid Panel 08/23/2024 08/24/2024, 08/12, 11/06/2022, Additional history exists Depression Screening 11/15/2024 11/16/2023, 11/16/19 SDOH Screening 11/15/2024 11/16/2023 Diabetes: Hemoglobin A1C 02/24/2025 025, 03/23/2024, 12/06/2023, Additional history exists Mammogram 06/09/2025 06/09/2024, 10/12, 03/13/2021, Additional history exists Alcohol/Substance Use Screening 08/24/2025 08/24/2024 Tobacco Screening 08/24/2025 08/24/2024 Colorectal Cancer Screening 08/29/2026 FIT DNA/Cologuard 08/29/2026 08/30/2023 DTaP/Tdap/Td Vaccines (3 - Td or Tdap) 01/31/2034 02/01/2024, 12/09/2012, 03/13/2002 RSV Patients and Patients Aged 60 years or older (1 - 1-dose 75+ series) 2036 Hepatitis A Vaccines Aged Out 04/01/2007 No long er eligible based on patient's age to complete this topic HIV Screening Completed 01/25/2024 Hepatitis C Screening Completed 01/25/2024, 023 Influenza Vaccine Completed 03/23/2024, , 08/18/2019, Additional history exists HIB Vaccines Aged Out No longer eligi ble based on patient's age to complete this topic HPV Vaccines Aged Out No longer eligi ble based on patient's age to complete this topic IPV Vaccines Aged Out No longer eligi ble based on patient's age to complete this topic Meningococcal Vaccine Aged Out No rain alba eligible based on patient's age to complete this topic RSV under 20 months Aged Out No longe r eligible based on patient's age to complete this topic Rotavirus Vaccines Aged Out No longer eligible based on patient's age to complete this topic Goals Goal Patient Goal Type Associated Problems Recent Progress Patient-Stated? Author Keep fasting blood glucose between 70 and 130 Result Component Type 2 diabetes mellitus without complication, without long-term current use of insulin Improving(12/13 4:48 PM EDT) Jace Doherty PharmD Procedures Procedure Name Priority Date/Time Associated Diagnosis Comments HEPATIC FUNCTION PANEL Routine 11:17 AM EDT COMPREHENSIVE METABOLIC PANEL Routine 08/24/2024 11:17 AM EDT Essential hypertension Type 2 diabetes mellitus without complication, without long-term current use of insulin (CMS/HCC) LIPID PANEL, STANDARD Routine 08/24/2024 11:17 AM EDT Type 2 diabetes mellitus without complication, without long-term current use of insulin (CMS/HCC) ALBUMIN, RANDOM URINE W/CREATININE Routine 08/24/2024 11:17 AM EDT Type 2 diabetes mellitus with hyperglycemia, with long-term current use of insulin (CMS/HCC) POCT GLYCATED HEMOGLOBIN, TOTAL Routine 08/24/2024 10:41 AM EDT Type 2 diabetes mellitus with hyperglycemia, with long-term current use of insulin (CMS/HCC) POCT GLUCOSE Routine 08/24/2024 10:39 AM EDT Type 2 diabetes mellitus with hyperglycemia, with long-term current use of insulin (CMS/HCC) BI MAMMOGRAM SCREENING TOMOSYNTHESIS BILATERAL Routine 06/09/2024 12:30 PM EST Preventative health care HEPATITIS PANEL, GENERAL Routine 01/25/2024 12:00 AM EDT HIV 1/2 ANTIGEN/ANTIBODY, FOURTH GENERATION W/RFL Routine 01/25/2024 12:00 AM EDT LAB COLOGUARD?? COLON CANCER SCREEN Routine 08/30/2023 11:00 AM EDT Screening for colorectal cancer HPV MRNA E6/E7 Routine 03/05/2021 3:51 PM EDT THINPREP PAP Routine 03/05/2021 3:51 PM EDT from Last 3 Months or Most Recently Relevant to Health Maintenance Results * Albumin, Random Urine W/Creatinine (08/24/2024 11:17 AM EDT) Creatinine, Urine 42.17 mg/dL [facility] Microalbumin Urine 7.0 mg/L [facility] Microalbum Creatinine Ratio Ur 16.5 <30 ug/mg cr [facility] Comment:Albumin/Creatinine R atio Reference Ranges: Normal: < 30 ug/mg creatinine Microalbuminuria: 30 - 300 ug/mg creatinineClinical Albuminuria: > 300 ug/mg creatinine Urine (Urine, Random) 08/24/2024 11:17 AM EDT 08/24/2024 1:03 PM EDT To Baires MD LAB URINE ORDERABLES Final Result Performing Organization Address City/State/[facility] Co de Phone Number [facility] [address] [place] [phone] * POCT HGB A1C (08/24/2024 10:41 AM EDT) Hemoglobin A1C 6.0 4.0 - 6.0 % QC Media Lot # [id number] Lot# Expiration Date Blood 08/24/2024 10:4 1 AM EDT us To Baires MD POINT OF CARE TEST EN TER/EDIT ORDERABLES Final Result * POCT Glucose (08/24/2024 10:39 AM EDT) Glucose Blood, POC 157 60 - 200 mg/dL QC Media Lot # [id number] Lot# Expiration Date 8208,100 Blood Capillary blood specimen / Unknown 08/24/2024 10:39 AM EDT us To Baires MD POINT OF CARE TEST EN TER/EDIT ORDERABLES Final Result * BI Mammogram Screening Tomosynthesis Bilateral (06/09/2024 12:30 PM EST) Anatomical Region Laterality Modality Breast Bilateral Mammography 06/09/2024 12:3 0 PM EST Narrative 06/21/2024 1:44 PM EST ? [facility] ? [address] ?[place] [id number] ? Mammography Report ? Signed ? Patient: Odalys Dunbar ?MR#: ?? [id number] ? : 1960 ?Acct:[id number] ? Age/Sex: 63 / F ?ADM Date: 06/09/24 ? Loc: HO.MAMMO ? Attending Dr: To Forrest MD ? Ordering Physician: To Forrest MD ?Resu ?? lts: 2Benign Findings ? Date of Service: 06/09/24 ?Follow Up: 1 Year From Orig ?? inal Mammogram ? Procedure(s): MM tomosynthesis screening BI ?? Accession Number(s): [id number] ? cc: To Forrest MD ? EXAMINATION: ?? MM SCREENING DIGITAL BREAST TOMOSYNTHESIS, BILATERAL ? CLINICAL INFORMATION: ? Screening. Asymptomatic. ? COMPARISON: ?? Mammography: Comparison is made with available priors ? TECHNIQUE: ?? Digital breast mammography with tomosynthesis is performed in both the ?? craniocaudal and mediolateral oblique views along with computer-aided ?? detection (CAD). ? FINDINGS: ?? The breasts are extremely dense, which lowers the sensitivity of ?? mammography (ACR BI-RADS breast composition Category d). ?? Left marker clip from previous needle core biopsy. ?? There are no significant masses, abnormal calcifications, or other ?? abnormalities. ? MM/MM tomosynthesis screening BI ?? IMPRESSION: ?? No mammographic evidence of malignancy. ? ASSESSMENT: ? BI-RADS BI-RADS 2 - Benign Findings ? RECOMMENDATION: ?? Routine annual mammography screening. ? 1 year F/U ? This examination should not preclude the clinical evaluation of a ?? suspicious palpable abnormality. ? This patient's information was entered into a reminder system with a ?? target due date for their next mammogram. ? Electronically signed by: ??Maryellen Ron DO ??06/21/2024 01:41 PM EST ?? RP ? Dictated By: ?Maryellen Ron DO ? Signed By: ?<Electronically signed by Maryellen Ron DO in OV> ? 06/21/24 1341 ? DD/ 1230 ? TD/TT: 06/09/24 1244 ? Technical Training Manager: ? Procedure Note Donneptali, Image - 06/21/2024 [facility] [address] [place] [address] Dr. [place], [place] [id number] Mammography Report Signed Patient: Tabitha Dunbar#: [id number] : 2Acct:[id number] Age/Sex: 63 / FADM Date: 06/09/24 Loc: [facility]ES[facility] Attending Dr: To Forrest MD Ordering Physician: To Forrest MDResu lts: 2Benign Findings Date of Service: 06/09/24Follow Up: 1 Year From Orig ina Mammogram Procedure(s): MM tomosynthesis screening BI Accession Number(s): [id number] cc: To Forrest MD EXAMINATION: MM SCREENING DIGITAL BREAST TOMOSYNTHESIS, BILATERAL CLINICAL INFORMATION: Screening. Asymptomatic. COMPARISON: Mammography: Comparison is made with available priors TECHNIQUE: Digital breast mammography with tomosynthesis is performed in both the craniocaudal and mediolateral oblique views along with computer-aided detection (CAD). FINDINGS: The breasts are extremely dense, which lowers the sensitivity of mammography (ACR BI-RADS breast composition Category d). Left marker clip from previous needle core biopsy. There are no significant masses, abnormal calcifications, or other abnormalities. MM/MM tomosynthesis screening BI IMPRESSION: No mammographic evidence of malignancy. ASSESSMENT: BI-RADS BI-RADS 2 - Benign Findings RECOMMENDATION: Routine annual mammography screening. 1 year F/U This examination should not preclude the clinical evaluation of a suspicious palpable abnormality. This patient's information was entered into a reminder system with a target due date for their next mammogram. Electronically signed by: Maryellen Ron DO 06/21/2024 01:41 PM [facility] Dictated By: Maryellen Ron DO Signed By: <Electronically signed by Maryellen Ron DO in OV> 06/21/24 1341 DD/ 1230 TD/TT: 06/09/24 1244 Technical Training Manager: us To Baires MD IMG BI PROCEDURES Rajinder marta Result - Final * Hepatitis Panel, General (01/25/2024 12:00 AM EDT) Hepatitis A IgM Nonreactive Nonreactive [facility] Comment:IgM antibodies to BOLTON V not detected; does not exclude earlyacute or recovered HAV infection. ~Hepatitis B Surface Antibody REACTIVE Nonreactive [facility] Comment:REACTIVE: > 11.99 mI U/mL Hepatitis B Core Antibody Nonreactive Nonreactive [facility] Hepatitis C Antibody Nonreactive Nonreactive [facility] Comment:Antibodies to HCV no t detected; does not exclude early acuteHCV infection. Hepatitis B Surface Ag Negative Negative [facility] 01/25/2024 01/25/2024 us Generic External Data Provider LAB BLOOD ORDERAB LES Final Result Performing Organization Address [facility] Co de Phone Number [facility] [address] [place] [phone] * HIV-1/2 Antigen and Antibodies, Fourth Generation, with Reflexes (01/25/2024 12:00 AM EDT) Pathologist [facility] HIV AB/AG Nonreactive Nonreactive [facility] Comment:HIV-1 p24 Ag and/or HIV-1/HIV-2 Ab not detected.A test result that is nonreactive does not exclude thepossibility of exposure to or infection with HIV-1 and/orHIV-2. Nonreactive results in this assay for individualswith prior exposure to HIV-1 and/or HIV-2 may be due toantigen and antibody levels that are below the limit ofdetection of this assay.The XDCniThis[employer] HIV Ag/Ab Combo assay result andsupplemental assay results should be interpreted inconjunction with the patient's clinical presentation,history and other laboratory results. If the results areinconsistent with clinical evidence, additional testing issuggested to confirm the result. 01/25/2024 01/25/2024 us Generic External Data Provider LAB BLOOD ORDERAB LES Final Result Performing Organization Address [facility] Co de Phone Number [facility] [address] [place] [address] [phone] * Cologuard?? colon cancer screening (08/30/2023 11:00 AM EDT) Cologuard Result Negative Negative 09/03/19 6:39 PM EDT [facility] (CLIA #:[id number]) Comment: NEGATIVE TEST RESULT. A negative Cologuard result indicates a low likelihood that a colorectal cancer (CRC) or advanced adenoma (adenomatous polyps with more advanced pre-malignant features) ??is present. The chance that a person with a negative Cologuard test has a colorectal cancer is less than 1 in 1500 (negative predictive value >99.9%) or has an ??advanced adenoma is less than ??5.3% (negative predictive value 94.7%). These data are based on a prospective cross-sectional study of 10,000 individuals at average risk for colorectal cancer who were screened with both Cologuard and colonoscopy. (Suzi Cordero et al, N Engl J Med 2014;370(14):1286- 1297) The normal value (reference range) for this assay is negative. COLOGUARD RE-SCREENING RECOMMENDATION: Periodic colorectal cancer screening is an important part of preventive healthcare for asymptomatic individuals at average risk for colorectal cancer. ??Following a negative Cologuard result, the [place] Cancer Society and U.S. Multi-Society Task Force screening guidelines recommend a Cologuard re-screening interval of 3 years. References: [place] [employer] Guideline for Colorectal Cancer Screening: https://www.cancer.org/cancer/bbuhv-euyxdb-eflhvb/vosmqgvwb-ybkxftpbh-avggpql/ac s-rec ommendations.html.; Jasbir TORRES, Cyn FUCHS, Petra PérezK, Colorectal Cancer Screening: Recommendations for Physicians and Patients from the U.S. Multi-Society Task Force on Colorectal Cancer Screening , Am J Gastroenterology 2017; 112:4579-9437. TEST DESCRIPTION: Composite algorithmic analysis of stool DNA-biomarkers with hemoglobin immunoassay. ?? Quantitative values of individual biomarkers are not reportable and are not associated with individual biomarker result reference ranges. Cologuard is intended for colorectal cancer screening of adults of either sex, 45 years or older, who are at average-risk for colorectal cancer (CRC). Cologuard has been approved for use by the U.S. FDA. The performance of Cologuard was established in a cross sectional study of average-risk adults aged 50-84. Cologuard performance in patients ages 45 to 49 years was estimated by sub-group analysis of near-age groups. Colonoscopies performed for a positive result may find as the most clinically significant lesion: colorectal cancer [4.0%], advanced adenoma (including sessile serrated polyps greater than or equal to 1cm diameter) [20%] or non- advanced adenoma [31%]; or no colorectal neoplasia [45%]. These estimates are derived from a prospective cross-sectional screening study of 10,000 individuals at average risk for colorectal cancer who were screened with both Cologuard and colonoscopy. (Suzi Cordero et al, N Engl J Med 2014;370(14):8172-2360.) Cologuard may produce a false negative or false positive result (no colorectal cancer or precancerous polyp present at colonoscopy follow up). A negative Cologuard test result does not guarantee the absence of CRC or advanced adenoma (pre-cancer). The current Cologuard screening interval is every 3 years. ([place] Cancer Society and U.S. Multi-Society Task Force). Cologuard performance data in a 10,000 patient pivotal study using colonoscopy as the reference method can be accessed at the following location: www.[employer]/results. Additional description of the Cologuard test process, warnings and precautions can be found at www.[employer].com. Stool specimen (specimen) 08/30/2023 11:00 AM EDT 08/31/2023 1:56 PM EDT To Baires MD LAB MOLECULAR DIAGNOS TICS ORDERABLES Final Result [facility] (CLIA #:[id number]) [place] [address] [address], * THINPREP PAP (03/05/2021 3:51 PM EDT) Clinical Information: [facility] COMMENT SEE COMMENT [facility] Comment: EXPLANATORY NOTE: ? The Pap is a screening test for cervical cancer. It is ?? not a diagnostic test and is subject to false negative ?? and false positive results. It is most reliable when a ?? satisfactory sample, regularly obtained, is submitted ?? with relevant clinical findings and history, and when ?? the Pap result is evaluated along with historic and ?? current clinical information. ?? Fruit Tester : SEE [facility] Comment: HJP, CT(ASCP) CT screening location: [address] ??[phone] Interpretation/R esult: Negative for intraepithelial lesion or malignancy. [facility] LMP: NONE GIVEN [facility] PATHOLOGIST: SEE COMMENT [facility] Comment: Alex Cornejo M.D./Ronni, Board Certified in Anatomic Pathology and Board Eligible Cytopathology (electronic signature) Consulting Pathologist [facility] [address] [place] [address] ??[phone] Prev. BX: NONE GIVEN [facility] Prev. PAP: 2015 ASCUS, HPV- FO [facility] SOURCE: None given [facility] Statement Of Adequacy: SEE COMMENT [facility] Comment: Satisfactory for evaluation. Endocervical/transformation zone component absent. 03/05/2021 3:51 PM EDT Kristina ROSALES LAB PATHOLOGY ORDERABLES Final Result [facility] [address] * (ABNORMAL) HPV mRNA E6/E7 (03/05/2021 3:51 PM EDT) HPV nRNA E6/E7 Detected (A) Not Detected [facility] Comment: Methodology: Automatic Casting Machine Operator-Mediated Amplification This assay detects E6/E7 viral messenger RNA (mRNA) from 14 high-risk HPV types (16,18,31,33,35,39,45,51,52,56,58,59,66,68). ? The analytical performance characteristics of this assay have been determined by [employer]. The modifications have not been cleared or approved by the FDA. This assay has been validated pursuant to the CLIA regulations and is used for clinical purposes. ?? For additional information, please refer to http://education.[employer]/faq/TEY189l1 (This link if provided for information/ educational purposes only.) 03/05/2021 3:51 PM EDT us Kristina Sal ROSALESM LAB BLOOD ORDERABLES Kenia darron Result [facility] [address] from Last 3 Months or Most Recently Relevant to Health Maintenance Insurance N [facility] [facility] Care Teams Director Fundraising Relationship Specialty Start Date End Date To Connelly MD [address] [place] [phone] PCP - General Internal Medicine 09/11/15
[2024-08-24 14:33] LABS: TSH reflex Free T4 1.23 uIU/mL (0.32-4.0)
[2024-08-28 13:08] LABS: Alpha Fetoprotein 5.5 ng/mL
[2024-08-28 15:18] LABS: Mitochondrial Antibodies NEGATIVE (NEGATIVE)
[2024-08-29 11:04] LABS: Transglutaminase IgA <1.0 U/mL
[2024-08-29 15:13] LABS: Smooth Muscle Antibody <20 U (<20)
[2024-08-31 15:32] LABS: FIB-ALT 54 U/L (6-29); FIB-Alpha-2-Macroglobulin 355 mg/dL (106-279); FIB-Apolipoprotein A1 193 mg/dL (101-198); FIB-GGT 65 U/L (3-65); FIB-Haptoglobin 99 mg/dL (43-212); FIB-Total Bilirubin 0.5 mg/dL (0.2-1.2); Liver Fibrosis Score 0.47; Liver Fibrosis Stage F1-F2; Nec Inflam Act Grade A1-A2; Nec Inflam Act Score 0.37
== END 2024-08-24 11:14 | disposition home or self-care (01) ==
LOC: HO.HHCL 11:13
PROVIDERS: Nurse Practitioner Family; Visit Provider Internal Medicine
DX: E11.65 Type 2 diabetes mellitus with hyperglycemia (principal); Z79.4 Long term (current) use of insulin; E11.9 Type 2 diabetes mellitus without complications; L65.9 Nonscarring hair loss, unspecified; I10 Essential (primary) hypertension; K76.0 Fatty (change of) liver, not elsewhere classified; R10.9 Unspecified abdominal pain; R74.01 Elevation of levels of liver transaminase levels; R79.89 Other specified abnormal findings of blood chemistry; I25.10 Atherosclerotic heart disease of native coronary artery without angina pectoris
CPT/HCPCS: 36415; 80053; 80061; 81596; 82043; 82105; 82248; 82570; 84443; 86015; 86364; 86381

== ENCOUNTER 2024-08-25 08:53 | Outpatient (REF) | payer OTHER, SELFPAY ==
--- NOTE | ~2024-08-25 | US_ITS ---
EXAMINATION: US ABDOMEN LIMITED WITH LIVER ELASTOGRAPHY HISTORY: K76.0 - Fatty (change of) liver, not elsewhere classified TECHNIQUE: Real-time grayscale ultrasound imaging of the right upper quadrant was performed and images were reviewed. COMPARISON: Comparison is made with the prior examination dated 03/02/2024. FINDINGS: Liver: The right lobe of the liver measures 16.5 cm in size. The left lobe of the liver measures 9.4 cm in size. The liver demonstrates coarsened echotexture. No focal mass or intrahepatic biliary ductal dilatation is identified. There is normal hepatopedal flow in the portal vein. Ultrasound elastography of the liver was performed with 10 separate measurements of the liver parenchyma with the patient in the supine position. Measurements were obtained approximately 2 cm below Arti's capsule and perpendicular to the capsule. Images are of satisfactory quality. The median shear wave velocity is 2.01 m/s (previously 1.98 m/s). The interquartile range/median (IQR/median) is 0.17. Gallbladder and biliary tree: The gallbladder is distended, without evidence of calculi, wall thickening, or pericholecystic fluid. There is no sonographic Copeland sign. The common bile duct is normal in caliber measuring 3 mm. Right Kidney: The right kidney measures 10.6 cm in length. The right kidney is unremarkable, without evidence of masses, hydronephrosis, or calculi. Pancreas: The pancreatic head, neck, and body are unremarkable. The pancreatic tail is obscured by bowel gas. Abdominal aorta and inferior vena cava: The visualized portions of the abdominal aorta and inferior vena cava are normal in caliber. There is no free fluid in the right upper quadrant. US/US abdomen ball w elastography IMPRESSION: Hepatomegaly and coarsened hepatic echotexture. The median shear wave velocity in the liver is 2.01 m/s, corresponding to a median liver stiffness of 12.1 kPa. The IQR/median value is 0.17. This is indicative of a poor quality data set, and the estimated liver stiffness may be unreliable. Findings are indicative of a high elastography value suggestive of compensated advanced chronic liver disease. REFERENCE: Society of Radiologists in Ultrasound Liver Stiffness Thresholds (2020): LIVER STIFFNESS THRESHOLDS: *Shear wave velocity less than 1.3 m/s (Liver Stiffness equal or less than 5 kPa): High probability of being normal. *Shear wave velocity less than 1.7 m/s (Liver Stiffness less than 9 kPa): In the absence of other known clinical signs, rules out compensated advanced chronic liver disease. *Shear wave velocity between 1.7-2.1 m/s (Liver Stiffness 9-13 kPa): Suggestive of compensated advanced chronic liver disease but need further test for confirmation. *Shear wave velocity between 2.1-2.4 m/s (Liver Stiffness 13-17 kPa): Rules in compensated advanced chronic liver disease. *Shear wave velocity greater than 2.4 m/s (Liver Stiffness over 17 kPa): Suggestive of clinically significant portal hypertension. QUALITY OF DATA SET: *IQR/Median value equal or less than 0.15 implies a quality data set. *IQR/Median value over 0.15 implies a poor quality data set. SIGNIFICANT CHANGE FROM PRIOR EXAM: Significant change if liver stiffness measurement is 10% or greater from prior exam. OTHER CONSIDERATIONS: The stage of liver fibrosis may be overestimated in the setting of acute hepatitis, liver inflammation, elevated liver function tests, hepatic vascular congestion, obstructive cholestasis, non-fasting state, and infiltrative diseases such as amyloidosis and lymphoma. In some patients with NAFLD, the liver stiffness thresholds for compensated advanced chronic liver disease may be lower. In causes other than viral hepatitis and NAFLD, liver stiffness thresholds are not well established. Electronically signed by: Salvador Pompa MD 08/25/2024 10:11 AM EDT
--- OUTSIDE RECORDS SUMMARY | 2024-08-25 09:13 | XMS_ITS | Encounter Summary ---
Author Organization [employer] Address [address] [facility] 7t [place] [address] Care Team Providers Care Websphere Commerce Architect Name Role Phone To Connelly MD Primary Care Provide r Reason for Visit * Reason Comments Med Refill Encounter Details Date Type Department Care Team ([facility] st Contact Info) Description 04/11/2023 Refill [facility] [address] [place], [place] [phone] To Connelly MD [address] [place], [place] [phone] Essential hypertension Social History Tobacco Use Types [...] documented as of this encounter Care Teams Websphere Commerce Architect Relationship Specialty Start Date End Date To Connelly MD [address] [place] [address] PCP - General Internal Medicine 09/11/15 documented as of this encounter
--- OUTSIDE RECORDS SUMMARY | 2024-08-25 09:13 | XMS_ITS | Encounter Summary ---
Author Organization [employer] Address [address] [facility] [address] [place] [address] Care Team Providers Care Finish Rolls Operator Name Role Phone To Connelly MD Primary Care Provide r Encounter Details Date Type Department Care Team ([facility] st Contact Info) Description 12/03/[address] [facility] [address] [place], [place] [phone] Emily Mccollum MD [address] [place], [place] [phone] Social History Tobacco Use Types Packs/Day Years [...] Mccollum MD - 12/03/2023 6:10 PM EDT director clinical information services, patient with elevated glucose 662 mg/dL documented [...] Time Provider Department Center 12/06/2023 10:[address] [facility] [address] [facility] [facility] 02/17/2024 2:00 PM To Baires MD MEDICINE [facility] Sign note documented in this encounter Plan [...] documented as of this encounter Care Teams Finish Rolls Operator Relationship Specialty Start Date End Date To Connelly MD [address] [place] [phone] PCP - General Internal Medicine 09/11/15 documented as of this encounter
--- OUTSIDE RECORDS SUMMARY | 2024-08-25 09:13 | XMS_ITS | Encounter Summary ---
Author Organization [employer] Address [address] [facility] 7t [place] [address] Care Team Providers Care Adjutant General Name Role Phone To Connelly MD Primary Care Provide r Reason for Visit * Reason Comments Med Refill Encounter Details Date Type Department Care Team ([facility] st Contact Info) Description 05/16/[address] [facility] [address] [place], [place] [phone] Deena Cuevas MD [address] [place], [place] [phone] Essential hypertension Social History Tobacco Use Types [...] documented as of this encounter Care Teams Adjutant General Relationship Specialty Start Date End Date To Connelly MD [address] [place] [address] PCP - General Internal Medicine 09/11/15 documented as of this encounter
--- OUTSIDE RECORDS SUMMARY | 2024-08-25 09:13 | XMS_ITS | Encounter Summary ---
Author Organization [employer] Address [address] [facility] 7t [place] [address] Care Team Providers Care Spiral Runner Name Role Phone To Connelly MD Primary Care Provide r Reason for Visit * Reason Comments Med Change Request Encounter Details Date Type Department Care Team ([facility] st Contact Info) Description 12/06/2023 Refill [facility] [address] [place], [place] [phone] Wanda Smith FNP [address] [place], [place] [phone] Hyperglycemia Social History Tobacco Use Types Packs/Day [...] documented as of this encounter Care Teams Spiral Runner Relationship Specialty Start Date End Date To Connelly MD [address] [place] [address] PCP - General Internal Medicine 09/11/15 documented as of this encounter
--- OUTSIDE RECORDS SUMMARY | 2024-08-25 09:13 | XMS_ITS | Encounter Summary ---
Author Organization [employer] Address [address] [facility] 7t [place] [address] Care Team Providers Care Plywood Scarfer Tender Name Role Phone To Connelly MD Primary Care Provide r Reason for Visit * Reason Onset Date Comments Chart Prep 08/10/2024 Encounter Details Date Type Department Care Team ([facility] st Contact Info) Description 08/10/2024 Telephone [facility] [address] [place], [place] [phone] To Connelly MD [address] [place], [place] [phone] Chart Prep Social History Tobacco Use Types [...] documented as of this encounter Care Teams Plywood Scarfer Tender Relationship Specialty Start Date End Date To Connelly MD [address] [place] [address] PCP - General Internal Medicine 09/11/15 documented as of this encounter
--- OUTSIDE RECORDS SUMMARY | 2024-08-25 09:13 | XMS_ITS | Encounter Summary ---
Author Organization [employer] Address [address] [facility] 7t [place] [address] Care Team Providers Care Tipple Tender Name Role Phone To Connelly MD Primary Care Provide r Reason for Visit * Reason Comments Pre-visit Planning Pre-visit planning - LVM Encounter Details Date Type Department Care Team ([facility] st Contact Info) Description 08/14/2024 Patient Outreach [facility] [address] [place], [place] [phone] To Connelly MD [address] [place], [place] [phone] Pre-visit Planning (Pre-visit planning - LVM ) [...] documented as of this encounter Care Teams Tipple Tender Relationship Specialty Start Date End Date To Connelly MD [address] [place] [address] PCP - General Internal Medicine 09/11/15 documented as of this encounter
--- OUTSIDE RECORDS SUMMARY | 2024-08-25 09:13 | XMS_ITS | Encounter Summary ---
Author Organization [employer] Address [address] [facility] 7t [place] [address] Care Team Providers Care Financial Sales Professional Name Role Phone To Connelly MD Primary Care Provide r Reason for Visit * Reason Comments Med Refill Encounter Details Date Type Department Care Team ([facility] st Contact Info) Description 01/27/2024 Refill [facility] [address] [place], [place] [phone] Eulalia Mckenna MD [address] [place], [place] [phone] Social History Tobacco Use Types Packs/Day Years [...] documented as of this encounter Care Teams Financial Sales Professional Relationship Specialty Start Date End Date To Connelly MD [address] [place] [address] PCP - General Internal Medicine 09/11/15 documented as of this encounter
--- OUTSIDE RECORDS SUMMARY | 2024-08-25 09:13 | XMS_ITS | Clinical Summary ---
Author Organization [employer] Address [address] [facility] 7t [place] [address] Care Team Providers Care Photographer News Name Role Phone To Connelly MD Primary [...] Neg. Pt was referred to Dr. Bashir Casino Dealer for evaluation. Pt no showed to appointment. She was subsequently referred to [facility] but right now they have no availability Patient was referred to [facility] Dealer. Seen 01/25/2024 Of note she has a [...] Neg. Pt was referred to Dr. Bashir Casino Dealer for evaluation. Pt no showed to appointment. She was subsequently referred to [facility] but right now they have no availability Patient was referred to [facility] Casino Dealer. Seen 01/25/2024 Of note she has a [...] Neg. Pt was referred to Dr. Bashir Casino Dealer for evaluation. Pt no showed to appointment. She was subsequently referred to [facility] but right now they have no availability Patient was referred to [facility] Casino Dealer. Appointment is pending Of note she has [...] Neg. Pt was referred to Dr. Bashir Casino Dealer for evaluation. Pt no showed to appointment. She was subsequently referred to [facility] but right now they have no availability Patient was referred to [facility] Casino Dealer. Appointment is pending Of note she has [...] Neg. Pt was referred to Dr. Bashir Casino Dealer for evaluation. Pt no showed to appointment. She was subsequently referred to [facility] but right now they have no availability Will try to refer to a different [facility] Dealer Of note she has a postive GABRIELLA [...] Pending Pt was referred to Dr. Bashir Casino Dealer for evaluation. Pt no showed to appointment [...] Plan; Will refer to liver clinic at [facility] Persistent depressive disorder 08/18/2022 Assessment & Plan (08/18/2022 1:57 PM EST): Patient declines [facility] referral. She was referred to [facility] and subsequently to [facility] She is on Paxil 20 mg [...] pt needed Colposcopy. She was referred to [facility]. Pt no showed Will refer again. Discussed with patient importance of this Assessment & Plan (08/18/2022 2:01 PM EST): NIL HPV positive Pap 02/2021 preceded by ASCUS HPV neg x 2 . Per ASCCP Guidelines pt needed Colposcopy. She was referred to [facility] Preventative health care 08/18/2022 Assessment & Plan [...] Description 08/24/2024 10:30 AM EDT Office Visit [facility] [address] [place] [address] [phone] To Connelly MD Type 2 diabetes mellitus with hyperglycemia, with long-term current use of insulin ([facility]) (Primary Dx); Routine physical examination; Elevated LFTs; Essential hypertension; Preventative health care; Type 2 diabetes mellitus without complication, without long-term current use of insulin (CMS/HCC); Postmenopausal 08/24/2024 Orders Only GENERIC EXTERNAL DATA DEPARTMENT Provider, Generic External Data 08/24/[address] [facility] [address] [facility] [place] [address] To Connelly MD Insurance 08/24/2024 Travel 08/14/[address] [facility] [address] [facility] [place] [address] To Connelly MD 08/14/2024 Patient Outreach [facility] [address] [place] [address] To Connelly MD Pre-visit Planning (Pre-visit planning - LVM ) 08/10/2024 Telephone [facility] [address] [facility] [place] [address] To Connelly MD Chart Prep from Last [...] Diabetes: Foot Exam 12/21/1971 Eye Exam 12/21/1971 Pneumococcal Vaccine: 50+ Years (1 of 2 - PCV) 1980 Hepatitis B Vaccines (3 of 3 - 19+ 3-dose series) 10/27/2010 09/01/2010, 04/01/2007 Zoster Vaccines (1 of 2) 12/21/2011 Colonoscopy 03/06/2021 COVID-19 Vaccine ( season) 2024 10/08/2020, 09/10/2020 Cervical Cancer Screening 07/02/2024 HPV/Cotest 07/02/2024 03/05/2021 Pap Smear 07/02/2024 03/05/2021 Depression Screening 11/15/2024 11/16/2023, 11/16/19 SDOH Screening 11/15/2024 11/16/2023 Diabetes: Hemoglobin A1C 02/24/2025 025, 03/23/2024, 12/06/2023, Additional history exists Mammogram 06/09/2025 06/09/2024, 10/12, 03/13/2021, Additional history exists Alcohol/Substance Use Screening 08/24/2025 08/24/2024 Diabetes: Urine Protein Screening 08/24/2025 08/24/2024 Lipid Panel 08/24/2025 08/24/2024, 08/12, 11/06/2022, Additional history exists Tobacco Screening 08/24/2025 08/24/2024 Colorectal Cancer Screening [...] of insulin Improving(12/13 4:48 PM EDT) Jace Doheryt PharmD Procedures Procedure Name Priority Date/Time Associated Diagnosis Comments HEPATIC FUNCTION PANEL Routine 11:17 AM EDT COMPREHENSIVE METABOLIC PANEL Routine 08/24/2024 11:17 AM EDT Essential hypertension Type 2 diabetes mellitus without complication, without long-term current use of insulin (CMS/HCC) LIPID PANEL, STANDARD Routine 08/24/2024 11:17 AM EDT Type 2 diabetes mellitus without complication, without long-term current use of insulin (CMS/HCC) TSH W/REFLEX TO FT4 Routine 08/24/2024 1 1:17 AM EDT Alopecia ALBUMIN, RANDOM URINE W/CREATININE Routine 08/24/2024 11:17 [...] Recently Relevant to Health Maintenance Results * TSH with Reflex to Free T4 (08/24/2024 11:17 AM EDT) TSH reflex Free T4 1.23 0.32 - 4.0 uIU/mL [facility] Blood Venous blood specimen / Unknown 08/24/2024 11:17 AM EDT 08/24/2024 1:35 PM EDT To Baires MD LAB BLOOD ORDERABLES Final Result [facility] [address] [place] [phone] * Albumin, Random Urine W/Creatinine (08/24/2024 11:17 AM EDT) Creatinine, Urine 42.17 mg/dL [facility] Microalbumin Urine 7.0 mg/L [facility] Microalbum Creatinine Ratio Ur 16.5 <30 ug/mg cr [facility] Comment:Albumin/Creatinine R atio Reference Ranges: Normal: < 30 ug/mg creatinine Microalbuminuria: 30 - 300 ug/mg creatinineClinical Albuminuria: > 300 ug/mg creatinine Urine (Urine, Random) 08/24/2024 11:17 AM EDT 08/24/2024 1:03 PM EDT us To Baires MD LAB URINE ORDERABLES Final Result Performing Organization Address City/[facility]/ZIP Co de Phone Number [facility] [address] [place] [phone] * Hepatic Function Panel (08/24/2024 11:17 AM EDT) Bilirubin, Direct 0.2 0.0 - 0.5 mg/dL [facility] 08/24/2024 11:1 7 AM EDT 08/24/2024 1:35 PM EDT us Generic External Data Provider LAB BLOOD ORDERAB LES Final Result Performing Organization Address [facility] Co de Phone Number [facility] [address] [place] [phone] * Lipid Panel, Standard (08/24/2024 11:17 AM EDT) Triglycerides 71 <150 mg/dL [facility] Comment:Desirable Triglyceri de: less than 150 mg/dLBorderline High Triglyceride 150-199 mg/dLHigh Triglyceride: 200-499 mg/dLVery High Triglyceride: greater than or equal to 5OO mg/dL Cholesterol 152 <200 mg/dL [facility] Comment:Desirable Cholestero l: less than 200 mg/dLBorderline High Cholesterol: 200-239 mg/dLHigh Cholesterol: greater than 239 mg/dL LDL Cholesterol Calculated 80 <100 mg/dL [facility] Comment:Desirable LDL: less than 100 mg/dLNear Optimal/Above Optimal LDL: 110- 129 mg/dLBorderline High LDL: 130-159 mg/dLHigh LDL: 160-189 mg/dLVery High LDL: greater than or equal to 190 mg/dL HDL Cholesterol 58 >40 mg/dL [facility] Comment:Desirable HDL: great er than 40 mg/dL Note: This HDL assay may give artificially low results in patients with liver disease. Blood Venous blood specimen / Unknown 08/24/2024 11:17 AM EDT 08/24/2024 1:35 PM EDT To Baires MD LAB BLOOD ORDERABLES Final Result [facility] [address] [place] [phone] * (ABNORMAL) Comprehensive Metabolic Panel (08/24/2024 11:17 AM EDT) Sodium 139 135 - 145 mmol/L [facility] Potassium 3.7 3.3 - 5.1 mmol/L [facility] Chloride 101 96 - 108 mmol/L [facility] Carbon Dioxide 28 22 - 29 mmol/L [facility] Anion Gap 14 12 - 20 [facility] Urea Nitrogen (BUN) 19(H) 9 - 16 mg/dL [facility] Creatinine, Serum 0.71 0.5 - 1.4 mg/dL [facility] Estimated Glomerular Filt Rate >60 [facility] Comment:Chronic Kidney Disea se: Estimated GFR < 60 mL/min/[id number] Kidney Disease: Estimated GFR < 15 mL/min/1.73m2 Glucose 140(H) 60 - 115 mg/dL [facility] Calcium 10.2 8.4 - 10.2 mg/dL [facility] Bilirubin, Total 0.6 0.0 - 1.0 mg/dL [facility] Aspartate Amino Transferase 52(H) 5 - 31 U/L [facility] Alanine Aminotransferase 77(H) 0 - 31 U/L [facility] Total Protein 9.3(H) 6.5 - 8.0 g/dL [facility] Albumin Level 4.9 3.5 - 5.0 g/dL [facility] Alkaline Phosphatase 121(H) 39 - 117 U/L [facility] Blood Venous blood specimen / Unknown 08/24/2024 11:17 AM EDT 08/24/2024 1:35 PM EDT To Baires MD LAB BLOOD ORDERABLES Final Result [facility] [address] [place] [phone] * POCT HGB A1C (08/24/2024 10:41 AM EDT) Hemoglobin A1C 6.0 4.0 - 6.0 % QC Media Lot # [id number] Lot# Expiration Date ,022,547 Blood 08/24/2024 10:4 1 AM EDT To Baires MD POINT OF CARE TEST EN TER/EDIT ORDERABLES Final Result * POCT Glucose (08/24/2024 10:39 AM EDT) Glucose Blood, POC 157 60 - 200 mg/dL QC Media Lot # [id number] Lot# Expiration Date 047,008 Blood Capillary blood specimen / Unknown 08/24/2024 10:39 AM EDT To Baires MD POINT OF CARE TEST EN TER/EDIT ORDERABLES Final Result * BI Mammogram Screening Tomosynthesis Bilateral (06/09/2024 12:30 PM EST) Anatomical Region Laterality Modality Breast Bilateral Mammography 06/09/2024 12:3 0 PM EST Narrative 06/21/2024 1:44 PM EST ? [facility] [place] ? [address] ?[place] [address] ? Mammography Report ? Signed ? Patient: Odalys Dunbar ?MR#: ?? [id number] ? : 1960 ?Acct:[id number] ? Age/Sex: 63 / F ?ADM Date: 12/27/24 ? Loc: HO.MAMMO ? Attending Dr: To Forrest MD ? Ordering Physician: To Forrest MD ?Resu ?? lts: 2Benign Findings ? Date of Service: 06/09/24 ?Follow Up: 1 Year From Orig ?? inal Mammogram ? Procedure(s): MM tomosynthesis screening BI ?? Accession Number(s): [id number] ? cc: To Forrest MD ? EXAMINATION: [...] ? Signed By: ?<Electronically signed by Maryellen Ron, DO in OV> ? 06/21/24 1341 ? DD/DT: 06/09/ 1230 ? TD/TT: 06/09/24 1244 ? Cat Breeder: ? Procedure Note Donjeannetteter, Image - 06/21/2024 [facility] [address] [place] [address] Mammography Report Signed Patient: Tabitha Dunbar#: [id number] : 2Acct:[id number] Age/Sex: 63 / FADM Date: 06/09/24 Loc: HO.MAMMO Attending Dr: To Forrest MD Ordering Physician: To Forrest MDResu lts: 2Benign Findings Date of Service: 06/09/24Follow Up: 1 Year From Orig inal Mammogram Procedure(s): MM tomosynthesis screening BI Accession Number(s): [id number] cc: To Forrest MD EXAMINATION: MM SCREENING [...] by: Maryellen Ron DO 06/21/2024 01:41 PM EST Dictated By: Maryellen Ron DO Signed By: <Electronically signed by Maryellen Ron DO in OV> 06/21/24 1341 DD/ 1230 TD/TT: 06/09/24 1244 Cat Breeder: To Baires MD IMG BI PROCEDURES Rajinder marta Result - Final * Hepatitis Panel, General (01/25/2024 12:00 AM EDT) Hepatitis A IgM Nonreactive Nonreactive [facility] Comment:IgM antibodies to BOLTON V not detected; does not exclude earlyacute or recovered HAV infection. ~Hepatitis B Surface Antibody REACTIVE Nonreactive [facility] Comment:REACTIVE: > 11.99 mI U/mL Hepatitis B Core Antibody Nonreactive Nonreactive [facility] Hepatitis C Antibody Nonreactive Nonreactive [facility] Comment:Antibodies to HCV no t detected; does not exclude early acuteHCV infection. Hepatitis B Surface Ag Negative Negative [facility] 01/25/2024 01/25/2024 us Generic External Data Provider LAB BLOOD ORDERAB LES Final Result [facility] [address] [place] [phone] * HIV-1/2 Antigen and Antibodies, Fourth Generation, with Reflexes (01/25/2024 12:00 AM EDT) HIV AB/AG Nonreactive Nonreactive [facility] Comment:HIV-1 p24 Ag and/or HIV-1/HIV-2 Ab not detected.A test result that is nonreactive does not exclude thepossibility of exposure to or infection with HIV-1 and/orHIV-2. Nonreactive results in this assay for individualswith prior exposure to HIV-1 and/or HIV-2 may be due toantigen and antibody levels that are below the limit ofdetection of this assay.The Rumgr HIV Ag/Ab Combo assay result andsupplemental assay results should be interpreted inconjunction with the patient's clinical presentation,history and other laboratory results. If the results areinconsistent with clinical evidence, additional testing issuggested to confirm the result. 01/25/2024 01/25/2024 us Generic External Data Provider LAB BLOOD ORDERAB LES Final Result [facility] [address] [place] [phone] * Cologuard?? colon cancer screening (08/30/2023 11:00 AM EDT) [facility] Cologuard Result Negative Negative 09/03/19 6:39 PM EDT [facility] (CLIA #:[id number]) Comment: NEGATIVE TEST RESULT. A negative Cologuard [...] screened with both Cologuard and colonoscopy. (Suzi Da Silva al, N Engl J Med 2014;370(14):1286- 1297) The normal value (reference range) for this assay is negative. COLOGUARD RE-SCREENING RECOMMENDATION: Periodic colorectal cancer screening is an important part of preventive healthcare for asymptomatic individuals at average risk for colorectal cancer. ??Following a negative Cologuard result, the [place] [employer] and U.S. Multi-Society Task Force screening guidelines recommend a Cologuard re-screening interval of 3 years. References: [place] [employer] Guideline for Colorectal Cancer Screening: https://www.cancer.org/cancer/btadp-kcwxll-otoevu/nponhlfnu-eknjrnred-kymoaof/ac s-rec ommendations.html.; Jasbir DK, Cyn CR, Petra PérezK, Colorectal Cancer Screening: Recommendations for Physicians and Patients from the U.S. Multi-Society Task Force on Colorectal Cancer Screening , Am J Gastroenterology 2017; 112:0534-6887. TEST DESCRIPTION: Composite algorithmic analysis of stool [...] screened with both Cologuard and colonoscopy. (Suzi Da Silva al, N Engl J Med 2014;370(14):7515-5661.) Cologuard may produce a false negative or false positive result (no colorectal cancer or precancerous polyp present at colonoscopy follow up). A negative Cologuard test result does not guarantee the absence of CRC or advanced adenoma (pre-cancer). The current Cologuard screening interval is every 3 years. ([place] [employer] and U.S. Multi-Society Task Force). Cologuard performance data in a 10,000 patient pivotal study using colonoscopy as the reference method can be accessed at the following location: www.[employer].Up & Net/results. Additional description of the Cologuard test process, warnings and precautions can be found at www.[employer].com. Stool specimen (specimen) 08/30/2023 11:00 AM EDT 08/31/2023 1:56 PM EDT us To Baires MD LAB MOLECULAR DIAGNOS TICS ORDERABLES Final Result [facility] (CLIA #:[id number]) [place] [address], [place] [phone] * THINPREP PAP (03/05/2021 3:51 PM EDT) Clinical Information: Postmenopausal [facility] COMMENT SEE COMMENT [facility] [...] historic and ?? current clinical information. ?? Energy Analyst : SEE COMMENT [facility] Comment: HJP, CT(ASCP) CT screening location: [address] ??[phone] Interpretation/R esult: Negative for intraepithelial lesion or malignancy. [facility] LMP: NONE GIVEN [facility] PATHOLOGIST: SEE COMMENT [facility] Comment: Alex Cornejo M.D./M.S., Board Certified in Anatomic Pathology and Board Eligible Cytopathology (electronic signature) Consulting Pathologist [facility] [address] [place] [address] ??[phone] Prev. BX: NONE GIVEN [facility] Prev. PAP: 2015 ASCUS, HPV- FO [facility] SOURCE: None given [facility] Statement Of Adequacy: SEE COMMENT [facility] Comment: Satisfactory for evaluation. Endocervical/transformation zone component absent. 03/05/2021 3:51 PM EDT us Kristina Huang CNM LAB PATHOLOGY ORDERABLES Final Result [facility] [address] * (ABNORMAL) HPV mRNA E6/E7 (03/05/2021 3:51 PM EDT) HPV nRNA E6/E7 Detected (A) Not Detected [facility] Comment: Methodology: Pattern Chain Builder-Mediated Amplification This assay detects E6/E7 viral messenger RNA (mRNA) from 14 high-risk HPV types (16,18,31,33,35,39,45,51,52,56,58,59,66,68). ? The analytical performance characteristics of this assay have been determined by [employer]. The modifications have not been cleared or approved by the FDA. This assay has been validated pursuant to the CLIA regulations and is used for clinical purposes. ?? For additional information, please refer to http://education.mapp2link/faq/DKT828i4 (This link if provided for information/ educational purposes only.) 03/05/2021 3:51 PM EDT Kristina ROSALES LAB BLOOD ORDERABLES Kenia l Result [facility] [address] from Last 3 Months or Most Recently Relevant to Health Maintenance Insurance [facility] * Guarantor: Odalys Sharp Account Type Relation to Patient Date of Phone Billing Address Personal/Family Self [address] [phone] Care Teams Photographer News Relationship Specialty Start Date End Date To Connelly MD [address] [place] [phone] PCP - General Internal Medicine 09/11/15
--- OUTSIDE RECORDS SUMMARY | 2024-08-25 09:13 | XMS_ITS | Encounter Summary ---
Author Organization [employer] Address [address] [facility] 7t [place] [address] Care Team Providers Care Paper Coater Name Role Phone To Connelly MD Primary Care Provide r Reason for Visit * Reason Comments Med Refill Encounter Details Date Type Department Care Team ([facility] st Contact Info) Description 01/28/2024 Refill [facility] [address] [place], [place] [phone] To Connelly MD [address] [place], [place] [phone] Social History Tobacco Use Types Packs/Day Years [...] documented as of this encounter Care Teams Paper Coater Relationship Specialty Start Date End Date To Connelly MD [address] [place] [phone] PCP - General Internal Medicine 09/11/15 documented as of this encounter
--- OUTSIDE RECORDS SUMMARY | 2024-08-25 09:13 | XMS_ITS | Encounter Summary ---
Author Organization [employer] Address [address] [facility] [address]t [place] [address] Care Team Providers Care Mexican Food Maker Hand Name Role Phone To Connelly MD Primary Care Provide r Reason for Visit * Reason Comments Med Refill Encounter Details Date Type Department Care Team ([facility] st Contact Info) Description 01/27/2024 Refill [facility] [address] [place], [place] [phone] To Connelly MD [address] [place], [place] [phone] Essential hypertension Social History Tobacco Use Types [...] documented as of this encounter Care Teams Mexican Food Maker Hand Relationship Specialty Start Date End Date To Connelly MD [address] [place] [phone] PCP - General Internal Medicine 09/11/15 documented as of this encounter
--- OUTSIDE RECORDS SUMMARY | 2024-08-25 09:14 | XMS_ITS | Encounter Summary ---
Author Organization [employer] Address [address] [facility] 7t [place] [address] Care Team Providers Care Home Sales Consultant Name Role Phone To Connelly MD Primary [...] Improving(12/13 4:48 PM EDT) No Jace Em, Thanh documented as of this encounter Procedures Procedure Name Priority Date/Time Associated Diagnosis Comments HEPATIC FUNCTION PANEL Routine 08/24/2024 11:17 AM EDT documented in this encounter Results * Hepatic Function Panel (08/24/2024 11:17 AM EDT) Bilirubin, Direct 0.2 0.0 - 0.5 mg/dL [facility] 08/24/2024 11:1 7 AM EDT 08/24/2024 1:35 PM EDT us Generic External Data Provider LAB BLOOD ORDERAB LES Final Result [facility] [address] [place] [phone] documented in this encounter Visit Diagnoses Not on filedocumented in this encounter Additional Health Concerns Assessment Noted Time PHQ-9 Depression Total Score: 5 11/16/19 24 2:25 PM EDT documented as of this encounter Care Teams Home Sales Consultant Relationship Specialty Start Date End Date To Connelly MD [address] [place] [address] PCP - General Internal Medicine 09/11/15 documented as of this encounter
--- OUTSIDE RECORDS SUMMARY | 2024-08-25 09:14 | XMS_ITS | Encounter Summary ---
Author Organization [employer] Address [address] [facility] 7t [place] [address] Care Team Providers Care Vat House Laborer Name Role Phone To Connelly MD Primary Care Provide r Encounter Details Date Type Department Care Team (Late st Contact Info) Description 06/10/2022 Orders Only [facility] [address] [place], [place] [phone] Soraya Sarabia, RN Social History Tobacco Use [...] on filedocumented in this encounter Care Teams Vat House Laborer Relationship Specialty Start Date End Date To Connelly MD [address] [place], [place] [phone] PCP - General Internal Medicine 09/11/15 documented as of this encounter
--- OUTSIDE RECORDS SUMMARY | 2024-08-25 09:14 | XMS_ITS | Encounter Summary ---
Author Organization [employer] Address [address] [facility] 7t [place] [address] Care Team Providers Care Ferryboat Helper Name Role Phone To Connelly MD Primary [...] documented as of this encounter Care Teams Ferryboat Helper Relationship Specialty Start Date End Date To Connelly MD [address] [place] [phone] PCP - General Internal Medicine 09/11/15 documented as of this encounter
--- OUTSIDE RECORDS SUMMARY | 2024-08-25 09:14 | XMS_ITS | Encounter Summary ---
Author Organization [employer] Address [address] [facility] 7t [place] [address] Care Team Providers Care Product Mgmt Dev Manager Name Role Phone To Connelly MD Primary Care Provide r Reason for Visit * Reason Onset Date Comments Medication Question 08/14/2024 Med Refill 08/14/2024 Encounter Details Date Type Department Care Team ([facility] st Contact Info) Description 08/14/2024 Refill [facility] [address] [place], [place] [phone] To Connelly MD [address] [place], [place] [phone] Social History Tobacco Use Types Packs/Day Years [...] having the Bottom Part. Contact pt at [phone] documented in this encounter Plan of Treatment [...] documented as of this encounter Care Teams Product Mgmt Dev Manager Relationship Specialty Start Date End Date To Connelly MD [address] [place] [phone] PCP - General Internal Medicine 09/11/15 documented as of this encounter
--- OUTSIDE RECORDS SUMMARY | 2024-08-25 09:14 | XMS_ITS | Encounter Summary ---
Author Organization [employer] Address [address] [facility] 7t [place] [address] Care Team Providers Care Consumer Electronics Merchandiser Name Role Phone To Connelly MD Primary Care Provide r Reason for Visit * Reason Onset Date Comments Insurance 08/24/2024 Encounter Details Date Type Department Care Team ([facility] st Contact Info) Description 08/24/2024 Telephone [facility] [address] [place], [place] [phone] To Connelly MD [address] [place], [place] [phone] Insurance Social History Tobacco Use Types Packs/Day [...] Miscellaneous Notes * Telephone Encounter - Sherry D eLa Garza - 08/24/2024 10:19 AM EDT Patient [...] documented as of this encounter Care Teams Consumer Electronics Merchandiser Relationship Specialty Start Date End Date To Connelly MD [address] [place] [address] PCP - General Internal Medicine 09/11/15 documented as of this encounter
--- OUTSIDE RECORDS SUMMARY | 2024-08-25 09:14 | XMS_ITS | Encounter Summary ---
Author Organization [facility] Address [address] [place] [address] 7t [place] [address] Care Team Providers Care Telecommunications Officer Name Role Phone To Connelly MD Primary Care Provide r Reason for Referral * Imaging (Routine) - Authorized Specialty Diagnoses / Procedures Referred By Contac t Referred To Contact Radiology Diagnoses Postmenopausal Procedures BD DEXA Axial To Connelly MD [address] [place] [address] Phone: tel: fax: [address] Phone: tel: fax: Referral ID Status Reason Start Date Expiration Date V isits Requested Visits Authorized [id number] Authorized 08/24/2024 08/24/2025 1 1 Reason for Visit * Reason Comments Annual Exam Encounter Details Date Type Department Care Team (Late st Contact Info) Description 08/24/2024 10:30 AM EDT Office Visit [facility] [address] [place], [place] [phone] To Connelly MD [address] [place], [place] [phone] Type 2 diabetes mellitus with hyperglycemia, with [...] complication, without long-term current use of insulin ([facility]) -Primary Patient is here for [...] Neg. Pt was referred to Dr. Bashir Territory Representative for evaluation. Pt no showed to appointment. She was subsequently referred [place] [facility] but right now they have no availability Patient was referred [place] [facility] [place]. Seen 01/25/2024 Of note she has a [...] without complication, without long-term current useof insulin ([facility]) Patient is here for a [...] Neg. Pt was referred to Dr. Bashir Territory Representative for evaluation. Pt no showed to appointment. She was subsequently referred to [facility] but right now they have no availability Patient was referred to [facility] [place] [facility]. Seen 01/25/2024 Of note she has a [...] without long-term current use of insulin (CMS/HCC) COMPREHENSIVE METABOLIC PANEL Routine 08/24/2024 11:17 AM EDT Essential hypertension Type 2 diabetes mellitus without complication, without long-term current use of insulin (CMS/HCC) POCT GLYCATED HEMOGLOBIN, TOTAL Routine 08/24/2024 10:41 AM EDT Type 2 diabetes mellitus with hyperglycemia, with long-term current use of insulin ([facility]) POCT GLUCOSE Routine 08/24/2024 10:39 AM EDT Type 2 diabetes mellitus with hyperglycemia, with long-term current use of insulin ([facility]) documented in this encounter Results * (ABNORMAL) Comprehensive Metabolic Panel (08/24/2024 11:17 AM EDT) Sodium 139 135 - 145 mmol/L [facility] Potassium 3.7 3.3 - 5.1 mmol/L [facility] Chloride 101 96 - 108 mmol/L [facility] Carbon Dioxide 28 22 - 29 mmol/L [facility] Anion Gap 14 12 - 20 [facility] Urea Nitrogen (BUN) 19(H) 9 - 16 mg/dL [facility] Creatinine, Serum 0.71 0.5 - 1.4 mg/dL [facility] Estimated Glomerular Filt Rate >60 [facility] Comment:Chronic Kidney Disea se: Estimated GFR < 60 mL/min/[id number] Kidney Disease: Estimated GFR < 15 mL/min/1.73m2 Glucose 140(H) 60 - 115 mg/dL [facility] Calcium 10.2 8.4 - 10.2 mg/dL [facility] Bilirubin, Total 0.6 0.0 - 1.0 mg/dL [facility] Aspartate Amino Transferase 52(H) 5 - 31 U/L [facility] Alanine Aminotransferase 77(H) 0 - 31 U/L [facility] Total Protein 9.3(H) 6.5 - 8.0 g/dL [facility] Albumin Level 4.9 3.5 - 5.0 g/dL [facility] Alkaline Phosphatase 121(H) 39 - 117 U/L [facility] Blood Venous blood specimen / Unknown 08/24/2024 11:17 AM EDT 08/24/2024 1:35 PM EDT To Baires MD LAB BLOOD ORDERABLES Final Result Performing Organization Address City/[facility]/ZIP Co de Phone Number [facility] [address] [place] [address] [phone] * Lipid Panel, Standard (08/24/2024 11:17 AM EDT) Triglycerides 71 <150 mg/dL [facility] Comment:Desirable Triglyceri de: less than 150 mg/dLBorderline High Triglyceride 150-199 mg/dLHigh Triglyceride: 200-499 mg/dLVery High Triglyceride: greater than or equal to 5OO mg/dL Cholesterol 152 <200 mg/dL [facility] Comment:Desirable Cholestero l: less than 200 mg/dLBorderline High Cholesterol: 200-239 mg/dLHigh Cholesterol: greater than 239 mg/dL LDL Cholesterol Calculated 80 <100 mg/dL [facility] Comment:Desirable LDL: less than 100 mg/dLNear Optimal/Above Optimal LDL: 110- 129 mg/dLBorderline High LDL: 130-159 mg/dLHigh LDL: 160-189 mg/dLVery High LDL: greater than or equal to 190 mg/dL HDL Cholesterol 58 >40 mg/dL [facility] Comment:Desirable HDL: great er than 40 mg/dL Note: This HDL assay may give artificially low results in patients with liver disease. Blood Venous blood specimen / Unknown 08/24/2024 11:17 AM EDT 08/24/2024 1:35 PM EDT To Baires MD LAB BLOOD ORDERABLES Final Result Performing Organization Address City/[facility]/ZIP Co de Phone Number [facility] [address] [place] [address] [phone] * POCT HGB A1C (08/24/2024 10:41 [...] Media Lot # [id number] Lot# Expiration Date [id number] Blood Capillary blood specimen / Unknown 08/24/2024 10:39 AM EDT To Baires MD POINT OF CARE TEST EN TER/EDIT ORDERABLES Final Result documented in this encounter Visit Diagnoses Diagnosis Type 2 diabetes mellitus with hyperglycemia, with long-term current use of insulin ([facility])- Primary Routine physical examination Routine general medical examination at a health care facility Elevated LFTs Other abnormal blood chemistry Essential hypertension Unspecified essential hypertension Preventative health care Routine general medical examination at a health care facility Type 2 diabetes mellitus without complication, without long-term current use of insulin (CMS/HCC) Postmenopausal Asymptomatic postmenopausal status (age-related) (natural) documented in this encounter Additional Health Concerns Assessment Noted Time PHQ-9 Depression Total Score: 5 11/16/19 24 2:25 PM EDT documented as of this encounter Care Teams Telecommunications Officer Relationship Specialty Start Date End Date oT Connelly MD [address] [place] [address] PCP - General Internal Medicine 09/11/15 documented as of this encounter
--- OUTSIDE RECORDS SUMMARY | 2024-08-25 09:14 | XMS_ITS | Encounter Summary ---
Author Organization [employer] Address [address] [facility] 7t [place] [address] Care Team Providers Care Cook Cashier Food Prep Name Role Phone To Connelly MD Primary Care Provide r Reason for Visit * Reason Comments Med Change Request Encounter Details Date Type Department Care Team ([facility] st Contact Info) Description 07/12/2023 Refill [facility] [address] [place], [place] [phone] Wanda Smith FNP [address] [place], [place] [phone] Social History Tobacco Use Types Packs/Day Years [...] Miscellaneous Notes * Telephone Encounter - Martine Mieer RN - 07/22/2023 10:49 AM EST FYI, pt reports rash symptoms almost entirely resolved with otc treatment. * Telephone Encounter - Froylan Beaulieu RN - 07/14/2023 2:55 PM EST T/C to pt. For below message, No answer. LVM to call back on [phone]. Can you contact patient and see what [...] documented as of this encounter Care Teams Cook Cashier Food Prep Relationship Specialty Start Date End Date To Connelly MD [address] [place] [phone] PCP - General Internal Medicine 09/11/15 documented as of this encounter
== END 2024-08-25 08:54 | disposition home or self-care (01) ==
LOC: HO.US 08:53
PROVIDERS: PCP Internal Medicine; Visit Provider Nurse Practitioner Family
DX: K76.0 Fatty (change of) liver, not elsewhere classified (principal)
CPT/HCPCS: 76705; 76981

== ENCOUNTER → 2024-08-25 08:54 | Outpatient (BNV) | payer OTHER, SELFPAY | PROVIDERS: PCP Internal Medicine; Visit Provider Radiology Diagnostic Radiology | DX: K76.89 Other specified diseases of liver (principal); R16.0 Hepatomegaly, not elsewhere classified | CPT/HCPCS: 76705 ==

== ENCOUNTER 2024-09-19 09:40 | Outpatient (REF) | payer OTHER, SELFPAY ==
--- OUTSIDE RECORDS SUMMARY | 2024-09-19 11:53 | XMS_ITS | Encounter Summary ---
Author Organization [employer] Address [address] [facility] 7t [place] [address] Care Team Providers Care Assistive Technology Specialist Name Role Phone To Connelly MD Primary Care Provide r Reason for Visit * Reason Comments Med Refill Encounter Details Date Type Department Care Team ([facility] st Contact Info) Description 01/28/[address] [facility] WALK[facility]IN C[facility] [address] [place], [place] [phone] To Connelly MD [address] [place], [place] [phone] Social History Tobacco Use Types Packs/Day Years [...] of insulin Improving(12/13 4:48 PM EDT) No Jcae Em, PharmD documented as of this encounter Visit Diagnoses Not on filedocumented in this encounter Additional Health Concerns Assessment Noted Time PHQ-9 Depression Total Score: 5 11/16/19 24 2:25 PM EDT documented as of this encounter Care Teams Assistive Technology Specialist Relationship Specialty Start Date End Date To Connelly MD [address] [place] [address] PCP - General Internal Medicine 09/11/15 documented as of this encounter
--- OUTSIDE RECORDS SUMMARY | 2024-09-19 11:53 | XMS_ITS | Encounter Summary ---
Author Organization [employer] Address 75 [facility] 7t [place] [address] Care Team Providers Care Outpatient Coder Name Role Phone To Connelly MD Primary Care Provide r Reason for Visit * Reason Comments Med Refill Encounter Details Date Type Department Care Team ([facility] st Contact Info) Description 01/27/2024 Refill [facility] MED[facility] [address] [place], [place] [phone] To Connelly MD [address] [place], [place] [phone] Essential hypertension Social History Tobacco Use Types [...] documented as of this encounter Care Teams Outpatient Coder Relationship Specialty Start Date End Date To Connelly MD [address] [place] [address] PCP - General Internal Medicine 09/11/15 documented as of this encounter
--- OUTSIDE RECORDS SUMMARY | 2024-09-19 11:53 | XMS_ITS | Encounter Summary ---
Author Organization [employer] Address 75 [facility] 7t [place] [address] Care Team Providers Care Attorney Lawyer Name Role Phone To Connelly MD Primary Care Provide r Reason for Visit * Reason Comments Med Change Request Encounter Details Date Type Department Care Team ([facility] st Contact Info) Description 12/06/2023 Refill [facility] [address] [place], [place] [phone] Wanda Smith FNP [address] [place], [place] [phone] Hyperglycemia Social History Tobacco Use Types Packs/Day [...] documented as of this encounter Care Teams Attorney Lawyer Relationship Specialty Start Date End Date To Connelly MD [address] [place] [address] PCP - General Internal Medicine 09/11/15 documented as of this encounter
--- OUTSIDE RECORDS SUMMARY | 2024-09-19 11:53 | XMS_ITS | Encounter Summary ---
Author Organization [employer] Address 75 [facility] 7t [place] [address] Care Team Providers Care Vc++ Developer Name Role Phone To Connelly MD Primary Care Provide r Reason for Visit * Reason Comments Med Refill Encounter Details Date Type Department Care Team ([facility] st Contact Info) Description 04/11/2023 Refill [facility] MEDICINE [address] [place], [place] [phone] To Connelly MD [address] [place], [place] [phone] Essential hypertension Social History Tobacco Use Types [...] documented as of this encounter Care Teams Vc++ Developer Relationship Specialty Start Date End Date To Connelly MD [address] [place] [address] PCP - General Internal Medicine 09/11/15 documented as of this encounter
--- OUTSIDE RECORDS SUMMARY | 2024-09-19 11:53 | XMS_ITS | Encounter Summary ---
Author Organization [employer] Address 75 [facility] 7t [place] [address] Care Team Providers Care Technical Operations Manager Name Role Phone To Connelly MD Primary Care Provide r Reason for Visit * Reason Comments Med Refill Encounter Details Date Type Department Care Team ([facility] st Contact Info) Description 01/27/2024 Refill [facility] MEDIC[facility] [address] [place], [place] [phone] Eulalia Mckenna MD [address] [place], [place] [phone] Social History Tobacco Use Types Packs/Day Years [...] documented as of this encounter Care Teams Technical Operations Manager Relationship Specialty Start Date End Date To Connelly MD [address] [place] [address] PCP - General Internal Medicine 09/11/15 documented as of this encounter
--- OUTSIDE RECORDS SUMMARY | 2024-09-19 11:54 | XMS_ITS | Encounter Summary ---
Author Organization [employer] Address 75 [facility] 7t [place] [address] Care Team Providers Care Nut Former Name Role Phone To Connelly MD Primary Care Provide r Reason for Visit * Reason Comments Med Change Request Encounter Details Date Type Department Care Team ([facility] st Contact Info) Description 07/12/2023 Refill [facility] WALK[facility] [address] [place], [place] [phone] Wanda Smith FNP [address] [place], [place] [phone] Social History Tobacco Use Types Packs/Day Years [...] No answer. LVM to call back on [phone]. Can you contact patient and see what [...] documented as of this encounter Care Teams Nut Former Relationship Specialty Start Date End Date To Connelly MD [address] [place] [phone] PCP - General Internal Medicine 09/11/15 documented as of this encounter
--- OUTSIDE RECORDS SUMMARY | 2024-09-19 11:54 | XMS_ITS | Encounter Summary ---
Author Organization [employer] Address [address] [facility] [address] [place] [address] Care Team Providers Care Stress Test Technician Name Role Phone To Connelly MD Primary Care Provide r Reason for Visit * Reason Comments Med Refill Encounter Details Date Type Department Care Team ([facility] st Contact Info) Description 05/16/2024 Refill [facility] MED[facility]INE [address] [place], [place] [phone] Deena Cuevas MD [address] [place], [place] [phone] Essential hypertension Social History Tobacco Use Types [...] documented as of this encounter Care Teams Stress Test Technician Relationship Specialty Start Date End Date To Connelly MD [address] [place] [address] PCP - General Internal Medicine 09/11/15 documented as of this encounter
--- OUTSIDE RECORDS SUMMARY | 2024-09-19 11:54 | XMS_ITS | Encounter Summary ---
Author Organization [employer] Address [address] [facility] [address] [place] [address] Care Team Providers Care Environmental Protection Specialist Name Role Phone To Connelly MD Primary Care Provide r Encounter Details Date Type Department Care Team (Late st Contact Info) Description 06/10/2022 Orders Only [facility] MEDICINE [address] [place], [place] [phone] Soraya Sarabia, RN Social History Tobacco Use [...] on filedocumented in this encounter Care Teams Environmental Protection Specialist Relationship Specialty Start Date End Date To Connelly MD [address] [place], [place] [phone] PCP - General Internal Medicine 09/11/15 documented as of this encounter
--- OUTSIDE RECORDS SUMMARY | 2024-09-19 11:54 | XMS_ITS | Encounter Summary ---
Author Organization [employer] Address [address] [facility] [address] [place] [address] Care Team Providers Care Liquor Rectifier Name Role Phone To Connelly MD Primary Care Provide r Reason for Visit * Reason Comments Med Refill Encounter Details Date Type Department Care Team ([facility] st Contact Info) Description 09/14/2024 Refill [facility] MEDICINE [address] [place], [place] [phone] To Connelly MD [address] [place], [place] [phone] Type 2 diabetes mellitus with hyperglycemia, with long-term current use of insulin ([facility]) Social History Tobacco Use Types Packs/Day Years [...] hyperglycemia, with long-term current use of insulin ([facility]) documented in this encounter Additional Health Concerns Assessment Noted Time PHQ-9 Depression Total Score: 5 11/16/19 24 2:25 PM EDT documented as of this encounter Care Teams Liquor Rectifier Relationship Specialty Start Date End Date To Connelly MD [address] [place] [address] PCP - General Internal Medicine 09/11/15 documented as of this encounter
--- OUTSIDE RECORDS SUMMARY | 2024-09-19 11:54 | XMS_ITS | Clinical Summary ---
Author Organization [employer] Address [address] [place] [address] Care Team Providers Care Coat Padder Name Role Phone To Connelly MD Primary [...] Neg. Pt was referred to Dr. Bashir Development Spec for evaluation. Pt no showed to appointment. She was subsequently referred to [facility] but right now they have no availability Patient was referred to [facility]. Seen 01/25/2024 Of note she has a [...] Neg. Pt was referred to Dr. Bashir Development Spec for evaluation. Pt no showed to appointment. She was subsequently referred to [facility] but right now they have no availability Patient was referred to [facility]. Seen 01/25/2024 Of note she has a [...] Neg. Pt was referred to Dr. Bashir Development Spec for evaluation. Pt no showed to appointment. She was subsequently referred to [facility] but right now they have no availability Patient was referred to [facility] Spec. Appointment is pending Of note she has [...] Neg. Pt was referred to Dr. Bashir Development Spec for evaluation. Pt no showed to appointment. She was subsequently referred to [facility] but right now they have no availability Patient was referred to [facility] Development Spec. Appointment is pending Of note she has [...] Neg. Pt was referred to Dr. Bashir Development Spec for evaluation. Pt no showed to appointment. She was subsequently referred to [facility] but right now they have no availability Will try to refer to a different Development Spec Of note she has a postive GABRIELLA [...] Pending Pt was referred to Dr. Bashir Development Spec for evaluation. Pt no showed to appointment [...] Plan; Will refer to liver clinic at [facility] Persistent depressive disorder 08/18/2022 Assessment & Plan (08/18/2022 1:57 PM EST): Patient declines [facility] referral. She was referred to [facility] and subsequently to [facility] She is on Paxil [...] pt needed Colposcopy. She was referred to COMPUTER INFORMATION SCIENCE PROFESSOR. Pt no showed Will refer again. Discussed with patient importance of this Assessment & Plan (08/18/2022 2:01 PM EST): NIL HPV positive Pap 02/2021 preceded by ASCUS HPV neg x 2 . Per ASCCP Guidelines pt needed Colposcopy. She was referred to COMPUTER INFORMATION SCIENCE PROFESSOR Preventative health care 08/18/2022 Assessment & Plan [...] Type Department Care Team Description 09/19/2024 Telephone [facility] [address] [facility] [facility] [place] [address] Julia Bhatt Abnormal Pap Smear 09/14/2024 Refill [facility] [address], [place] [address] To Connelly MD Type 2 diabetes mellitus with hyperglycemia, with long-term current use of insulin (CMS/HCC) 09/13/2024 Orders Only [facility] [address] [facility] [place] [address] Janice Brian FNP Essential hypertension 09/12/2024 Refill [facility] [address] [place] [address] To Connelly MD Essential hypertension 09/11/20[address] [facility] [address] [facility] [place] [address] To Connelly MD Essential hypertension 08/24/2024 10:30 AM EDT Office Visit [facility] [address] [place] [address] To Connelly MD Type 2 diabetes mellitus with hyperglycemia, with long-term current use of insulin (CMS/HCC) (Primary Dx); Routine physical examination; Elevated LFTs; Essential hypertension; Preventative health care; Type 2 diabetes mellitus without complication, without long-term current use of insulin (CMS/HCC); Postmenopausal 08/24/2024 Orders Only GENERIC EXTERNAL DATA DEPARTMENT Provider, Generic External Data 08/24/2024 Telephone [facility] [address] [place] [address] To Connelly MD Insurance 08/24/2024 Travel 08/14/2024 Refill [facility] [address] [place] [address] To Connelly MD 08/14/2024 Patient Outreach [facility] [address] [facility] [facility] [place] [address] To Connelly MD Pre-visit Planning (Pre-visit planning - LVM ) 08/10/2024 Telephone [facility] [address] [place] [phone] To Connelly MD Chart Prep from Last [...] EDT Narrative 08/25/2024 10:13 AM EDT ? [facility] ?[address] ?[place] [address] ? Ultrasound Report ? Signed ? Patient: Odalys Dunbar ?MR#: ?? [id number] ? : 1960 ?Acct:[id number] ? Age/Sex: 63 / F ?ADM Date: 08/25/24 ? Loc: HO.US ? Attending Dr: Bekah Muñoz BEAMER HELPER-BC ? Ordering Physician: Bekah Muñoz BEAMER HELPER-BC ?? Date of Service: 08/25/24 ?? Procedure(s): US abdomen lua w elastography ?? Accession Number(s): [id number] ? cc: To Forrest MD; Bekah Muñoz [facility] ? EXAMINATION: ??US ABDOMEN LIMITED WITH [...] DD/ 0913 ? TD/TT: 08/25/24 0938 ? Technical Marketing Consultant: ? Procedure Note Donotuseinterpreter, Image - 08/25/[address] [address] Ultrasound Report Signed Patient: Tabitha Dunbar#: [id number] : 2Acct:[id number] Age/Sex: 63 / FADM Date: 08/25/24 Loc: HO.US Attending Dr: Bekah Muñoz BEAMER HELPER- Ordering Physician: Bekah Muñoz-DEMETRIO Date of Service: 08/25/24 Procedure(s): US abdomen lua w elastography Accession Number(s): [id number] cc: To Forrest MD; Bekah Muñoz BEAMER HELPER-DEMETRIO EXAMINATION: US ABDOMEN LIMITED WITH LIVER ELASTOGRAPHY [...] 08/25/24 1011 DD/ 0913 TD/TT: 08/25/24 0938 Technical Marketing Consultant: us [facility] External Provider IMG US PROCEDURES Final Result * TSH with Reflex to Free T4 (08/24/2024 11:17 AM EDT) TSH reflex Free T4 1.23 0.32 - 4.0 uIU/mL [facility] Blood Venous blood specimen / Unknown 08/24/2024 11:17 AM EDT 08/24/2024 1:35 PM EDT us To Baires MD LAB BLOOD ORDERABLES Final Result Performing Organization Address City/State/[facility] Co de Phone Number [facility] [address] [place] [phone] * (ABNORMAL) Liver Fibrosis (HCV), FibroTest-ActiTest Panel (08/24/2024 11:17 AM EDT) Liver Fibrosis Score 0.47 [facility] Liver Fibrosis Stage F1-F2 [facility] Liver Fibrosis Interpretation SEE NOTE [facility] Comment:minimal fibrosisFibr o Test Score [...] (severe fibrosis) Nec Inflam Act Score 0.37 [facility] Nec Inflam Act Grade A1-A2 [facility] Nec Inflam Act Interpretation SEE NOTE [facility] Comment:minimal activityActi Test Score (a) Metavir Score a>=0 and a<=0.17 : A0 (no activity)a>0.17 and a<=0.29 : A0-A1 (no activity)a>0.29 and a<=0.36 : A1 (minimal activity)a>0.36 and a<=0.52 : A1-A2 (minimal activity)a>0.52 and a<=0.60 : A2 (significant activity)a>0.60 and a<=0.62 : A2-A3 (significant activity)a>0.62 and a<=1.00 : A3 (severe activity) JOG-Rjpuf-7-Macroglo bulin 355(A) 106 - 279 mg/dL [facility] FIB-Haptoglobin 99 43 - 212 mg/dL [facility] FIB-Apolipoprotein A1 193 101 - 198 mg/dL [facility] FIB-Total Bilirubin 0.5 0.2 - 1.2 mg/dL [facility] FIB-GGT 65 3 - 65 U/L [facility] FIB-ALT 54(A) 6 - 29 U/L [facility] Reference ID [id number] [facility] Footnote SEE NOTE [facility] Comment: The reliability of results [...] and C.The performance characteristics have been determined by[employer] [facility]. Ithas not been cleared or approved by the U.S. Food and DrugAdministration. Performance characteristics refer to theanalytical performance of the test.[employer], [employer], the associated logo, [employer] and all associated [employer] chopra are theregistered trademarks of [employer]. All third partymarks - (R) and (TM) - are the property of their respectiveowners. (C) [id number] [employer]. Allrights reserved.THIS TEST WAS PERFORMED AT:[employer] Manager [id number] [facility], [place] ??[phone] SALEH MD,PHD,ENID 08/24/2024 11:1 7 AM EDT 08/24/2024 1:35 PM EDT Generic External Data Provider LAB BLOOD ORDERAB LES Final Result [facility] [address] [place] [phone] * Albumin, Random Urine W/Creatinine (08/24/2024 11:17 AM EDT) Creatinine, Urine 42.17 mg/dL [facility] Microalbumin Urine 7.0 mg/L [facility] Microalbum Creatinine Ratio Ur 16.5 <30 ug/mg cr [facility] Comment:Albumin/Creatinine R atio Reference Ranges: Normal: < 30 ug/mg creatinine Microalbuminuria: 30 - 300 ug/mg creatinineClinical Albuminuria: > 300 ug/mg creatinine Urine (Urine, Random) 08/24/2024 11:17 AM EDT 08/24/2024 1:03 PM EDT us To Baires MD LAB URINE ORDERABLES Final Result Performing Organization Address [facility] Co de Phone Number [facility] [address] [place] [phone] * Actin (Smooth Muscle) Antibody (IgG) (08/24/2024 11:17 AM EDT) Smooth Muscle Antibody <20 <20 U [facility] Comment:Reference Range: <20 U: Negative>or=20 [...] with AIH type 1.THIS TEST WAS PERFORMED AT:[id number] [place] [address]MOZVKXZVINAYAK SHEPHERD MD,PHD 08/24/2024 11:1 7 AM EDT 08/24/2024 1:35 PM EDT Generic External Data Provider LAB BLOOD ORDERAB LES Final Result Performing Organization Address [facility] Co de Phone Number [facility] [address] [place] [phone] * Tissue Transglutaminase Antibody, IgA (08/24/2024 11:17 AM EDT) Transglutaminase IgA <1.0 U/mL [facility] Comment:Value Interpretation ----- <15.0 Antibody not detected> or = 15.0 Antibody detectedTHIS TEST WAS PERFORMED AT:[employer] [address] [address]SNHMPTIMBO JULES MD 08/24/2024 11:1 7 AM EDT 08/24/2024 1:35 PM EDT Generic External Data Provider LAB BLOOD ORDERAB LES Final Result Performing Organization Address [facility] Co de Phone Number [facility] [address] [place] [phone] * Alpha-Fetoprotein, Tumor Marker (08/24/2024 11:17 AM EDT) Alpha Fetoprotein 5.5 ng/mL [facility] Comment:Reference Range: <6. 1The use of AFP as a tumor marker in females is not recommended.This test was performed using the Virgen iLyngochemiluminescent method. Values obtained fromdifferent assay methods cannot be usedinterchangeably. AFP levels, regardless ofvalue, should not be interpreted as absoluteevidence of the presence or absence of disease.THIS TEST WAS PERFORMED AT:[employer] [place] [phone] JULES MD 08/24/2024 11:1 7 AM EDT 08/24/2024 1:35 PM EDT [facility] External Data Provider LAB BLOOD ORDERAB LES Final Result Performing Organization Address [facility] Number [facility] [address] [place] [phone] * Mitochondrial Antibody with Reflex to Titer (08/24/2024 11:17 AM EDT) Mitochondrial Antibodies NEGATIVE NEGATIVE [facility] Comment:THIS TEST WAS PERFOR MED AT:[employer] [place] [phone] JULES MD Mitochondrial Ab Titer TNP [facility] 08/24/2024 11:1 7 AM EDT 08/24/2024 1:35 PM EDT Generic External Data Provider LAB BLOOD ORDERAB LES Final Result Performing Organization Address City/[facility] Co de Phone Number [facility] [address] [place] [address] [phone] * Hepatic Function Panel (08/24/2024 11:17 AM EDT) Bilirubin, Direct 0.2 0.0 - 0.5 mg/dL [facility] 08/24/2024 11:1 7 AM EDT 08/24/2024 1:35 PM EDT us Generic External Data Provider LAB BLOOD ORDERAB LES Final Result [facility] [address] [place] [phone] * Lipid Panel, Standard (08/24/2024 11:17 AM EDT) Triglycerides 71 <150 mg/dL [facility] Comment:Desirable Triglyceri de: less than 150 mg/dLBorderline High Triglyceride 150-199 mg/dLHigh Triglyceride: 200-499 mg/dLVery High Triglyceride: greater than or equal to 5OO mg/dL Cholesterol 152 <200 mg/dL [facility] Comment:Desirable Cholestero l: less than 200 mg/dLBorderline High Cholesterol: 200-239 mg/dLHigh Cholesterol: greater than 239 mg/dL LDL Cholesterol Calculated 80 <100 mg/dL [facility] Comment:Desirable LDL: less than 100 mg/dLNear Optimal/Above Optimal LDL: 110- 129 mg/dLBorderline High LDL: 130-159 mg/dLHigh LDL: 160-189 mg/dLVery High LDL: greater than or equal to 190 mg/dL HDL Cholesterol 58 >40 mg/dL [facility] Comment:Desirable HDL: great er than 40 mg/dL Note: This HDL assay may give artificially low results in patients with liver disease. Blood Venous blood specimen / Unknown 08/24/2024 11:17 AM EDT 08/24/2024 1:35 PM EDT us To Baires MD LAB BLOOD ORDERABLES Final Result [facility] [address] [place] [phone] * (ABNORMAL) Comprehensive Metabolic Panel (08/24/2024 11:17 AM EDT) Sodium 139 135 - 145 mmol/L [facility] Potassium 3.7 3.3 - 5.1 mmol/L [facility] Chloride 101 96 - 108 mmol/L [facility] Carbon Dioxide 28 22 - 29 mmol/L [facility] Anion Gap 14 12 - 20 [facility] Urea Nitrogen (BUN) 19(H) 9 - 16 mg/dL [facility] Creatinine, Serum 0.71 0.5 - 1.4 mg/dL [facility] Estimated Glomerular Filt Rate >60 [facility] Comment:Chronic Kidney Disea se: Estimated GFR < 60 mL/min/1.27k5Muwphy Kidney Disease: Estimated GFR < 15 mL/min/1.73m2 Glucose 140(H) 60 - 115 mg/dL [facility] Calcium 10.2 8.4 - 10.2 mg/dL [facility] Bilirubin, Total 0.6 0.0 - 1.0 mg/dL [facility] Aspartate Amino Transferase 52(H) 5 - 31 U/L [facility] Alanine Aminotransferase 77(H) 0 - 31 U/L [facility] Total Protein 9.3(H) 6.5 - 8.0 g/dL [facility] Albumin Level 4.9 3.5 - 5.0 g/dL [facility] Alkaline Phosphatase 121(H) 39 - 117 U/L [facility] Blood Venous blood specimen / Unknown 08/24/2024 11:17 AM EDT 08/24/2024 1:35 PM EDT us To Baires MD LAB BLOOD ORDERABLES Final Result [facility] [address] [place] [phone] [phone] * POCT HGB A1C (08/24/2024 10:41 [...] EST Narrative 06/21/2024 1:44 PM EST ? [facility] ? [address] ?[place] [address] ? Mammography Report ? Signed ? Patient: Odalys Dunbar ?MR#: ?? [id number] ? : 1960 ?Acct:[id number] ? Age/Sex: 63 / F ?ADM Date: 12/27/24 ? Loc: HO.MAMMO ? Attending : To Forrest MD ? Ordering Physician: To Forrest MD ?Resu ?? lts: 2Benign Findings ? Date of Service: 06/09/24 ?Follow Up: 1 Year From Orig ?? inal Mammogram ? Procedure(s): MM tomosynthesis screening BI ?? Accession Number(s): [id number] ? cc: To Forrest MD ? EXAMINATION: [...] 1230 ? TD/TT: 06/09/24 1244 ? Technical Marketing Consultant: ? Procedure Note Randal, Image - [facility] [address] [place] [address] Mammography Report Signed Patient: Tabitha Dunbar#: [id number] : 2Acct:[id number] Age/Sex: 63 / FADM Date: 06/09/24 Loc: OSMIN.MAMMO Attending Dr: To Forrest MD Ordering Physician: To Forrest MDResu lts: 2Benign Findings Date of Service: 06/09/24Follow Up: 1 Year From Orig inal Mammogram Procedure(s): MM tomosynthesis screening BI Accession Number(s): [id number] cc: To Forrest MD EXAMINATION: MM SCREENING [...] by: Maryellen Ron DO 06/21/2024 01:41 PM [facility] Dictated By: Maryellen Ron DO Signed By: <Electronically signed by Maryellen Ron DO in OV> 06/21/24 1341 DD/ 1230 TD/TT: 06/09/24 1244 Technical Marketing Consultant: us To Baires MD IMG BI PROCEDURES Rajinder marta Result - Final * Hepatitis Panel, General (01/25/2024 12:00 AM EDT) Hepatitis A IgM Nonreactive Nonreactive [facility] Comment:IgM antibodies to BOLTON V not detected; does not exclude earlyacute or recovered HAV infection. ~Hepatitis B Surface Antibody REACTIVE Nonreactive [facility] Comment:REACTIVE: > 11.99 mI U/mL Hepatitis B Core Antibody Nonreactive Nonreactive [facility] Hepatitis C Antibody Nonreactive Nonreactive [facility] Comment:Antibodies to HCV no t detected; does not exclude early acuteHCV infection. Hepatitis B Surface Ag Negative Negative [facility] 01/25/2024 01/25/2024 us Generic External Data Provider LAB BLOOD ORDERAB LES Final Result [facility] [address] [place] [phone] * HIV-1/2 Antigen and Antibodies, Fourth Generation, with Reflexes (01/25/2024 12:00 AM EDT) HIV AB/AG Nonreactive Nonreactive [facility] Comment:HIV-1 p24 Ag and/or HIV-1/HIV-2 Ab not detected.A test result that is nonreactive does not exclude thepossibility of exposure to or infection with HIV-1 and/orHIV-2. Nonreactive results in this assay for individualswith prior exposure to HIV-1 and/or HIV-2 may be due toantigen and antibody levels that are below the limit ofdetection of this assay.The BlueTalon HIV Ag/Ab Combo assay result andsupplemental assay results should be interpreted inconjunction with the patient's clinical presentation,history and other laboratory results. If the results areinconsistent with clinical evidence, additional testing issuggested to confirm the result. 01/25/2024 01/25/2024 us Generic External Data Provider LAB BLOOD ORDERAB LES Final Result [facility] [address] [place] [address] [phone] * Cologuard?? colon cancer screening (08/30/2023 11:00 AM EDT) Cologuard Result Negative Negative 09/03/19 6:39 PM EDT [facility] (CLIA #:[id number]) Comment: NEGATIVE TEST RESULT. A negative Cologuard [...] cancer. ??Following a negative Cologuard result, the [place] Cancer Society and U.S. Multi-Society Task Force screening guidelines recommend a Cologuard re-screening interval of 3 years. References: [place] [employer] Guideline for Colorectal Cancer Screening: https://www.cancer.org/cancer/dkqib-thljsg-lvsbyl/euvhcxejh-zdjhaqatb-bkyujfi/ac s-rec ommendations.html.; Jasbir DK, Cyn CR, Petra PérezK, Colorectal Cancer Screening: Recommendations for Physicians and Patients from the U.S. Multi-Society Task Force on Colorectal Cancer Screening , Am J Gastroenterology 2017; 112:5425-3616. TEST DESCRIPTION: Composite algorithmic analysis of stool [...] Walton. et al, N Engl J Med 2014;370(14):5395-2609.) Cologuard may produce a false negative or false positive result (no colorectal cancer or precancerous polyp present at colonoscopy follow up). A negative Cologuard test result does not guarantee the absence of CRC or advanced adenoma (pre-cancer). The current Cologuard screening interval is every 3 years. ([place] [employer] Society and U.S. Multi-Society Task Force). Cologuard performance data in a 10,000 patient pivotal study using colonoscopy as the reference method can be accessed at the following location: www.Weblance.com/results. Additional description of the Cologuard test process, warnings and precautions can be found at www.cologuard.com. Stool specimen (specimen) 08/30/2023 11:00 AM EDT 08/31/2023 1:56 PM EDT us To Baires MD LAB MOLECULAR DIAGNOS TICS ORDERABLES Final Result [facility] (CLIA #:[id number]) [place] [address], * THINPREP PAP (03/05/2021 3:51 PM EDT) [...] historic and ?? current clinical information. ?? Wildlife And Game Protector : SEE COMMENT [facility] Comment: HJP, CT(ASCP) CT screening location: [address] ??[address] Interpretation/R esult: Negative for intraepithelial lesion or malignancy. [facility] LMP: NONE [facility] PATHOLOGIST: SEE COMMENT [facility] Comment: Alex Cornejo M.D./M.S., Board Certified in Anatomic Pathology and Board Eligible Cytopathology (electronic signature) Consulting Pathologist [facility] [address] [place] [phone] Prev. BX: NONE [facility]IVEN [facility] Prev. PAP: 2015 ASCUS, HPV- FO [facility] SOURCE: None given [facility] Statement Of Adequacy: SEE COMMENT [facility] Comment: Satisfactory for evaluation. Endocervical/transformation zone component absent. 03/05/2021 3:51 PM EDT Kristina Huang CNM LAB PATHOLOGY ORDERABLES Final Result [facility] [address] [place], [place] [address] * (ABNORMAL) HPV mRNA E6/E7 (03/05/2021 3:51 PM EDT) HPV nRNA E6/E7 Detected (A) Not Detected [facility] Comment: Methodology: Last Repairer Helper-Mediated Amplification This assay detects E6/E7 viral messenger RNA (mRNA) from 14 high-risk HPV types (16,18,31,33,35,39,45,51,52,56,58,59,66,68). ? The analytical performance characteristics of this assay have been determined by [employer]. The modifications have not been cleared or approved by the FDA. This assay has been validated pursuant to the CLIA regulations and is used for clinical purposes. ?? For additional information, please refer to http://education.Appy Couple/faq/CXL693g1 (This link if provided for information/ educational purposes only.) 03/05/2021 3:51 PM EDT us Kristina Huang CNM LAB BLOOD ORDERABLES Kenia rob Result [facility] [address] from Last 3 Months or Most Recently Relevant to Health Maintenance Insurance [facility] Care Teams Coat Padder Relationship Specialty Start Date End Date To Connelly MD [address] [place] [phone] PCP - General Internal Medicine 09/11/15
--- OUTSIDE RECORDS SUMMARY | 2024-09-19 11:54 | XMS_ITS | Encounter Summary ---
Author Organization [employer] Address [address] [facility] [address] [place] [address] Care Team Providers Care Commissary Production Supervisor Name Role Phone To Connelly MD Primary Care Provide r Reason for Visit * Reason Onset Date Comments Abnormal Pap Smear 09/19/2024 Encounter Details Date Type Department Care Team ([facility] st Contact Info) Description 09/19/2024 Telephone C [facility] [address] [place] [address] Julia Bhatt Abnormal Pap Smear Social History [...] documented as of this encounter Care Teams Commissary Production Supervisor Relationship Specialty Start Date End Date To Connelly MD [address] [place] [address] PCP - General Internal Medicine 09/11/15 documented as of this encounter
[2024-09-25 14:39] LABS: HPV Genotype 16 Negative (Negative); HPV Genotype 18 Negative (Negative); HPV High Risk Negative (Negative)
== END 2024-09-19 09:41 | disposition home or self-care (01) ==
LOC: HO.LNP 09:40
PROVIDERS: PCP Internal Medicine; Visit Provider Obstetrics & Gynecology
DX: Z01.419 Encounter for gynecological examination (general) (routine) without abnormal findings (principal); N90.60 Unspecified hypertrophy of vulva
CPT/HCPCS: 87626; 88175; 99396; 99459

== ENCOUNTER 2024-09-19 09:40 | Outpatient (AMB) | payer OTHER, SELFPAY ==
--- NOTE | 2024-09-19 09:55 | MHC.OFFVIS ---
Vital Signs 09/19/24 09:57 Height 5 ft 2 in BP 138/80 Blood Pressure Location Lt brachial Position Sitting Intake Visit Reasons: co testing Vice President Business & Corporate Development Required: No Allergies aspirin Allergy (Intermediate, Verified 07/25/24 15:36) Gastrointestinal Upset Medication List - Last Reconciled 09/19/24 by Clau Graham LPN amlodipine 5 mg PO QAM blood sugar diagnostic (FreeStyle Lite Strips) As directed blood-glucose meter (FreeStyle Lite Meter kit) As directed hydrochlorothiazide 25 mg PO DAILY lancets (FreeStyle Lancets) As directed lancets (TRUEplus Lancets) As directed lisinopril 20 mg PO DAILY pen needle, diabetic (BD Geena 2nd Gen Pen Needle) As directed HPI Comments Details: Presenting for six-months co testing post LEEP cone for SULEIMAN 2-3 with negative margins The patient had ascus HPV positive followed by colpo/biopsy/ECC in 12/05 which showed SULEIMAN 2, this was followed by LEEP cone with post cone ECC pathology showed SULEIMAN 2-3 with negative margins Last mammogram was in 06/06 was BI-RADS 2 No previous screening colonoscopy [facility] Medical History Diabetes Chondrocalcinosis of right knee Right anterior knee pain Elevated LFTs Pap 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 Persistent depressive disorder Essential (primary) hypertension Chronic pain of right knee Hypertension Surgical History History of endometrial ablation Social History Alcohol intake: current Alcohol intake frequency: does not drink Patient Tobacco Use Status: Never used Tobacco Substance Use Type: Marijuana Female Reproductive History Menstrual Age of Menarche: 15 Review of Systems Const All systems reviewed & are unremarkable except as noted in HPI and below Card Reports as per HPI Resp Reports as per HPI GI Reports as per HPI and Reports no additional complaints Reports as per HPI Physical Exam Const General: cooperative, healthy appearing and comfortable Chest Chest palpation & inspection: normal inspection of the chest and normal palpation of entire chest wall Breast/axilla inspection: normal inspection of the breasts and normal inspection of the axillae Breast/axilla palpation: normal palpation of the breasts, normal palpation of the axillae and no axillary lymphadenopathy Resp Effort & Inspection: normal respiratory effort Auscultation: clear to auscultation bilaterally Percussion: percussion normal Cardio Palpation: normal PMI Rate: regular rate Rhythm: regular rhythm Heart sounds: no murmurs and no rubs Peripheral pulses: Peripheral pulses 2+ throughout GI Inspection: Yes normal to inspection Palpation (GI): Soft to palpation, nontender, no guarding, not rigid and No hepatosplenomegaly present Percussion: Yes normal to percussion Auscultation: normal bowel sounds Rectal Exam - Female: deferred General: Yes bladder normal to palpation External Female Exam: lesion (Periclitoral left labial enlarged cyst versus lump) Speculum Exam - Vagina: normal appearance of the vagina, normal palpation, normal vaginal discharge and not erythematous Speculum Exam - Cervix: normal appearance of the cervix and normal palpation Bimanual exam- vagina & uterus: normal bimanual exam, normal palpation, uterine size normal, bladder normal to palpation, consistency normal and normal palpation Bimanual Exam- Adnexa, other: normal adnexae, no masses and no tenderness Assessment & Plan Assessment & Plan (1) Well woman exam: Comment: SULEIMAN 2-3/post LEEP cone with negative ECC in 01/04 Code(s): Z01.419 - Encounter for gynecological examination (general) (routine) without abnormal findings Category: Medical Plan: Co testing done. Counseled the patient about the recommended dietary allowance of 1200 mg of Calcium & 600 IU of vitamin D. Instructions given the patient to schedule next screening Mammogram in 06/07. The patient was referred to GI for screening colonoscopy . The patient was instructed to perform monthly self-breast exams and schedule annual exam in a year. All questions answered and the patient verbalized understanding. (2) Labia enlarged: Comment: Periclitoral Code(s): N90.60 - Unspecified hypertrophy of vulva Category: Medical Plan: Discussed with the patient the periclitoral labial enlargement cyst versus lump will order perineal ultrasound and follow-up in 2 weeks. Instructions given the patient to schedule follow-up appointment in 2 weeks. Orders: Orders US pelvic limited Today N90.60 - Unspecified hypertrophy of vulva Referrals Gastroenterology Referral Z12.11 - Encounter for screening for malignant neoplasm of colon Coding Level of Care Code Est Pt Prev Care 40-64y(93658) Diagnoses Well woman exam Z01.419 Labia enlarged N90.60
[2024-09-19 09:57] VITALS: BP 138/80
--- OUTSIDE RECORDS SUMMARY | 2024-09-19 11:01 | XMS_ITS | Encounter Summary ---
Author Organization [employer] Address [address] [facility] 7t [place] [address] Care Team Providers Care Day Care Home Mother Name Role Phone To Connelly MD Primary Care Provide r Reason for Visit * Reason Onset Date Comments Abnormal Pap Smear 09/19/2024 Encounter Details Date Type Department Care Team ([facility] st Contact Info) Description 09/19/2024 Telephone [facility] [address] [place] [address] Julia Bhatt Abnormal Pap Smear Social History Tobacco Use Types Packs/Day Years [...] encounter Miscellaneous Notes * Telephone Encounter - Julia Bhatt - 09/19/2024 9:17 AM EDT Outgoing call placed to patient to see let her know that she was over due for 6 month co-testing per patient she is on her way to the obgyn now . Will follow up to track results and plan of care . documented in this encounter Plan of Treatment [...] documented as of this encounter Care Teams Day Care Home Mother Relationship Specialty Start Date End Date To Connelly MD [address] [place] [address] PCP - General Internal Medicine 09/11/15 documented as of this encounter
--- OUTSIDE RECORDS SUMMARY | 2024-09-19 11:01 | XMS_ITS | Encounter Summary ---
Author Organization [employer] Address [address] [facility] 7t [place] [address] Care Team Providers Care Restaurant Lead Name Role Phone To Connelly MD Primary Care Provide r Encounter Details Date Type Department Care Team (Late st Contact Info) Description 06/10/2022 Orders Only [facility] [address] [place], [place] [phone] Soraya Sarabia, RN Social History Tobacco Use [...] on filedocumented in this encounter Care Teams Restaurant Lead Relationship Specialty Start Date End Date To Connelly MD [address] [place], [place] [phone] PCP - General Internal Medicine 09/11/15 documented as of this encounter
--- OUTSIDE RECORDS SUMMARY | 2024-09-19 11:01 | XMS_ITS | Encounter Summary ---
Author Organization [employer] Address [address] [facility] 7t [place] [address] Care Team Providers Care Insurance Attorney Name Role Phone To Connelly MD Primary Care Provide r Reason for Visit * Reason Comments Med Refill Encounter Details Date Type Department Care Team ([facility] st Contact Info) Description 01/28/2024 Refill [facility] [address] [place], [place] [phone] To Connelly MD [address] [place], [place] [phone] Social History Tobacco Use Types Packs/Day Years [...] documented as of this encounter Care Teams Insurance Attorney Relationship Specialty Start Date End Date To Connelly MD [address] [place] [address] PCP - General Internal Medicine 09/11/15 documented as of this encounter
--- OUTSIDE RECORDS SUMMARY | 2024-09-19 11:01 | XMS_ITS | Encounter Summary ---
Author Organization [employer] Address [address] [facility] [address]t [place] [address] Care Team Providers Care Apartment Community Manager Name Role Phone To Connelly MD Primary Care Provide r Reason for Visit * Reason Comments Med Change Request Encounter Details Date Type Department Care Team ([facility] st Contact Info) Description 12/06/2023 Refill [facility] [address] [place], [place] [phone] Wanda Smith FNP [address] [place], [place] [phone] Hyperglycemia Social History Tobacco Use Types Packs/Day [...] documented as of this encounter Care Teams Apartment Community Manager Relationship Specialty Start Date End Date To Connelly MD [address] [place] [address] PCP - General Internal Medicine 09/11/15 documented as of this encounter
--- OUTSIDE RECORDS SUMMARY | 2024-09-19 11:01 | XMS_ITS | Encounter Summary ---
Author Organization [employer] Address [address] [facility] 7t [place] [address] Care Team Providers Care Link Trainer Maintenance Worker Name Role Phone To Connelly MD Primary Care Provide r Reason for Visit * Reason Comments Med Refill Encounter Details Date Type Department Care Team ([facility] st Contact Info) Description 01/27/2024 Refill [facility] [address] [place], [place] [phone] To Connelly MD [address] [place], [place] [phone] Essential hypertension Social History Tobacco Use Types [...] documented as of this encounter Care Teams Link Trainer Maintenance Worker Relationship Specialty Start Date End Date To Connelly MD [address] [place] [address] PCP - General Internal Medicine 09/11/15 documented as of this encounter
--- OUTSIDE RECORDS SUMMARY | 2024-09-19 11:01 | XMS_ITS | Encounter Summary ---
Author Organization [employer] Address [address] [facility] 7t [place] [address] Care Team Providers Care Sand Control Worker Name Role Phone To Connelly MD Primary Care Provide r Reason for Visit * Reason Comments Med Refill Encounter Details Date Type Department Care Team ([facility] st Contact Info) Description 01/27/2024 Refill [facility] [address] [place], [place] [phone] Eulalia Mckenna MD [address] [place], [place] [phone] Social History Tobacco Use Types Packs/Day Years [...] documented as of this encounter Care Teams Sand Control Worker Relationship Specialty Start Date End Date To Connelly MD [address] [place] [address] PCP - General Internal Medicine 09/11/15 documented as of this encounter
--- OUTSIDE RECORDS SUMMARY | 2024-09-19 11:01 | XMS_ITS | Clinical Summary ---
Author Organization [employer] Address [address] [facility] [address] [place] [address] Care Team Providers Care Inside Plant Supervisor Name Role Phone To Connelly MD Primary Care Provide r Allergies Active Allergy Reactions Criticality Noted Date Comments Aspirin GI intolerance High 12/04/2023 Medications lidocaine (Lidoderm) 5 % patch Place 1 patch on the skin at bed time. 12/11/19 21 Active loratadine (Claritin) 10 MG tablet Take 1 tablet (10 mg) by mouth in the morning. 30 tablet 07/06/19 24 Active hydrocortisone 0.5 % ointment Apply topically 2 times daily. 28 g 07/06/19 24 Active insulin pen needle (BD Pen Needle Geena 2nd Gen) 32G x 4 mm miscIndications :Hyperglycemia Use once a day with Lantus 30 each 12/06/19 24 Active Alcohol Swabs (Alcohol Pads) 70 % pads test daily before all meals/snacks and once before bedtime. 100 each 12/09/19 24 Active Ketotifen Fumarate 0.035 % solution TAKE 1 DROP TO EYES TWICE A DAY NEEDED FOR ALLERGIES 5 mL 1 12/21/19 24 Active Blood Glucose Monitoring Suppl (FreeStyle Lite) w/Device kit INJECT UNDER THE SKIN 2 TIMES DAILY. TEST DAILY BEFORE ALL MEALS/SNACKS AND ONCE BEFORE BEDTIME.*NC 12/06/19 24 Active amLODIPine (Norvasc) 5 MG tabletIndicatio ns:Essential hypertension TAKE 1 TABLET (5 MG) BY MOUTH IN THE MORNING. 90 tablet 3 03/23/20 24 Active Alcohol Sheets (Alcoh-Wipe) sheetIndication s:Hyperglycemia Test daily before all meals/snacks and once before bedtime. 1 each 03/23/20 24 Active FreeStyle lancetsIndicati ons:Hyperglycem ia 1 each by Other route 2 times daily. Use bid, dx type 2 diabetes 60 each 11 03/23/20 24 025 Active glucose blood (FREESTYLE LITE) test stripIndication s:Hyperglycemia Use bid. Dx diabetes 60 each 11 03/23/20 24 Active Diclofenac Sodium (Voltaren) 1 % gel Apply 2 g topically every 6 (six) hours. 50 g 1 04/04/20 24 Active Lancet Devices (Lancing Device) misc Use to check blood sugar two times daily 1 each 08/16/19 25 Active lisinopril (Prinivil) 20 MG tabletIndicatio ns:Essential hypertension Take 1 tablet (20 mg) by mouth Once per day. 30 tablet 6 08/25/19 25 026 Active hydroCHLOROthia zide (HYDRODiuril) 25 MG tabletIndicatio ns:Essential hypertension Take 1 tablet by mouth every day 90 tablet 09/14/19 25 Active metFORMIN XR (Glucophage-XR) 500 MG 24 hr tabletIndicatio ns:Type 2 diabetes mellitus with hyperglycemia, with long-term current use of insulin (CMS/HCC) TAKE 1 TABLET BY MOUTH TWICE DAILY 180 tablet 1 09/15/19 25 Active lisinopril 40 MG tabletIndicatio ns:Essential hypertension Take 1 tablet by mouth every day 90 tablet 1 07/09/19 24 025 Discontinued(Do se adjustment) metFORMIN XR (Glucophage-XR) 500 MG 24 hr tabletIndicatio ns:Type 2 diabetes mellitus with hyperglycemia, with long-term current use of insulin (CMS/HCC) Take 1 tablet (500 mg) by mouth 2 times daily. 180 tablet 1 03/23/20 24 025 Discontinued hydroCHLOROthia zide (HYDRODiuril) 25 MG tabletIndicatio ns:Essential hypertension Take 1 tablet by mouth every day 90 tablet 03/23/20 24 025 Discontinued(Re order (will not trigger notification to Pharmacy)) Active Problems Problem Noted Date Diagnosed Date [...] Neg. Pt was referred to Dr. Bashir [facility] for evaluation. Pt no showed to appointment. She was subsequently referred to [facility] but right now they have no availability Patient was referred to [facility]. Seen 01/25/2024 Of note she has a [...] Neg. Pt was referred to Dr. Bashir Textile Finisher for evaluation. Pt no showed to appointment. She was subsequently referred to [facility] but right now they have no availability Patient was referred to [facility]. Seen 01/25/2024 Of note she has a [...] Neg. Pt was referred to Dr. Bashir Textile Finisher for evaluation. Pt no showed to appointment. She was subsequently referred to [facility] but right now they have no availability Patient was referred to [facility]. Appointment is pending Of note she has [...] Neg. Pt was referred to Dr. Bashir Textile Finisher for evaluation. Pt no showed to appointment. She was subsequently referred to [facility] but right now they have no availability Patient was referred to [facility]. Appointment is pending Of note she has [...] Neg. Pt was referred to Dr. Bashir Textile Finisher for evaluation. Pt no showed to appointment. She was subsequently referred to [facility] but right now they have no availability Will try to refer to a different Text[facility] [employer]isher Of note she has a postive GABRIELLA [...] Pending Pt was referred to Dr. Bashir Textile Finisher for evaluation. Pt no showed to appointment [...] Plan; Will refer to liver clinic at [facility] Persistent depressive disorder 08/18/2022 Assessment & Plan (08/18/2022 1:57 PM EST): Patient declines [facility] referral. She was referred to [facility] and subsequently to [facility] She is on Paxil 20 [...] pt needed Colposcopy. She was referred to [facility]. Pt no showed Will refer again. Discussed with patient importance of this Assessment & Plan (08/18/2022 2:01 PM EST): NIL HPV positive Pap 02/2021 preceded by ASCUS HPV neg x 2 . Per ASCCP Guidelines pt needed Colposcopy. She was referred to [facility] Preventative health care 08/18/2022 Assessment & Plan [...] Encounters Date Type Department Care Team Description 09/19/2024 Telephone [facility] [address] [facility] [place] [address] Julia Bhatt Abnormal Pap Smear 09/14/2024 Refill [facility] [address] [place], [place] [address] To Connelly MD Type 2 diabetes mellitus with hyperglycemia, with long-term current use of insulin (CMS/HCC) 09/13/2024 Orders Only [facility] [address] [place] [address] Janice Brian FNP Essential hypertension 09/12/2024 Refill [facility] [address] [place] [address] To Connelly MD Essential hypertension 09/11/2024 Refill [facility] [address] [place] [address] To Connelly MD Essential hypertension 08/24/2024 10:30 AM EDT Office Visit [facility] [address] [place] [address] To Connelly MD Type 2 diabetes mellitus with hyperglycemia, with long-term current use of insulin (CMS/HCC) (Primary Dx); Routine physical examination; Elevated LFTs; Essential hypertension; Preventative health care; Type 2 diabetes mellitus without complication, without long-term current use of insulin (CMS/HCC); Postmenopausal 08/24/2024 Orders Only GENERIC EXTERNAL DATA DEPARTMENT Provider, Generic External Data 08/24/2024 Telephone [facility] [address] [place] [address] To Connelly MD Insurance 08/24/2024 Travel 08/14/2024 Refill [facility] [address] [place] [address] To Connelly MD 08/14/2024 Patient Outreach [facility] [address] [place] [address] To Connelly MD Pre-visit Planning (Pre-visit planning - LVM ) 08/10/2024 Telephone [facility] [address] [place] [phone] [phone] Connelly MD Chart Prep from Last 3 [...] 2) 12/21/2011 Colonoscopy 03/06/2021 COVID-19 Vaccine ( - season) 2024 10/08/2020, 09/10/2020 Cervical Cancer Screening 07/02/2024 HPV/Cotest 07/02/2024 03/05/2021 Pap Smear 07/02/2024 03/05/2021 Depression Screening 11/15/2024 11/16/2023, 11/16/19 24 SDOH Screening 11/15/2024 11/16/2023 Diabetes: Hemoglobin A1C [...] 4:48 PM EDT) No Jace Em, PharmD Procedures Procedure Name Priority Date/Time Associated Diagnosis Comments US ABDOMEN LUA W ELASTOGRAPHY Routine 08/25/2024 9:13 AM EDT LIVER FIBROSIS, FIBROTEST ACTITEST PANEL Routine 08/24/2024 11:17 AM EDT ACTIN (SMOOTH MUSCLE) ANTIBODY (IGG) Routine 08/24/2024 11:17 AM EDT TISSUE TRANSGLUTAMINASE AB, IGA Routine 08/24/2024 11:17 AM EDT MITOCHONDRIAL ANTIBODY WITH REFLEX TO TITER Routine 08/24/2024 11:17 AM EDT ALPHA FETOPROTEIN, TUMOR MARKER Routine 08/24/2024 11:17 AM EDT HEPATIC FUNCTION PANEL Routine 11:17 AM EDT [...] Preventative health care HEPATITIS PANEL, GENERAL Routine 024 12:00 AM EDT HIV 1/2 ANTIGEN/ANTIBODY, FOURTH GENERATION W/RFL Routine 01/25/2024 12:00 AM EDT LAB COLOGUARD?? COLON CANCER SCREEN Routine 08/30/2023 11:00 AM EDT Screening for colorectal cancer HPV MRNA E6/E7 Routine 03/05/2021 3:51 PM EDT THINPREP PAP Routine 03/05/2021 3:51 PM EDT from Last 3 Months or Most Recently Relevant to Health Maintenance Results * US ABDOMEN LUA W ELASTOGRAPHY (08/25/2024 9:13 AM EDT) Anatomical Region Laterality Modality Abdomen Ultrasound 08/25/2024 9:13 AM EDT Narrative 08/25/2024 10:13 AM EDT ? [facility] ?[address] ?[place] [address] ? Ultrasound Report ? Signed ? Patient: Odalys Dunbar ?MR#: ?? [id number] ? : 1960 ?Acct:[id number] ? Age/Sex: 63 / F ?ADM Date: 08/25/24 ? Loc: HO.US ? Attending Dr: Bekah Muñoz [employer]-BC ? Ordering Physician: Bekah Muñoz [employer] [facility]BC ?? Date of Service: 08/25/24 ?? Procedure(s): US abdomen lua w elastography ?? Accession Number(s): [id number] ? cc: To Forrest MD; Bekah Muñoz [facility] ? EXAMINATION: ??US ABDOMEN LIMITED WITH LIVER ELASTOGRAPHY ? HISTORY: K76.0 - Fatty (change of) liver, not elsewhere classified ? TECHNIQUE: Real-time grayscale ultrasound imaging of the right upper ?? quadrant was performed and images were reviewed. ? COMPARISON: Comparison is made with the prior examination dated ?? 03/02/2024. ? FINDINGS: ?? Liver: ?? The right lobe of the liver measures 16.5 cm in size. The left ?? lobe of the liver measures 9.4 cm in size. The liver demonstrates ?? coarsened echotexture. ??No focal mass or intrahepatic biliary ductal ?? dilatation is identified. ??There is normal hepatopedal flow in the ?? portal vein. ? Ultrasound elastography of the liver was performed with 10 separate ?? measurements of the liver parenchyma with the patient in the supine ?? position. ??Measurements were obtained approximately 2 cm below ?? Arti's capsule and perpendicular to the capsule. ??Images are of ?? satisfactory quality. ? The median shear wave velocity is 2.01 m/s (previously 1.98 m/s). ?? The interquartile range/median (IQR/median) is 0.17. ? Gallbladder and biliary tree: The gallbladder is distended, without ?? evidence of calculi, wall thickening, or pericholecystic fluid. ??There ?? is no sonographic Copeland sign. ??The common bile duct is normal in ?? caliber measuring 3 mm. ? Right Kidney: ??The right kidney measures 10.6 cm in length. ??The right ?? kidney is unremarkable, without evidence of masses, hydronephrosis, or ?? calculi. ? Pancreas: The pancreatic head, neck, and body are unremarkable. The ?? pancreatic tail is obscured by bowel gas. ? Abdominal aorta and inferior vena cava: The visualized portions of the ?? abdominal aorta and inferior vena cava are normal in caliber. ? There is no free fluid in the right upper quadrant. ? US/US abdomen lua w elastography ?? IMPRESSION: ? Hepatomegaly and coarsened hepatic echotexture. ? The median shear wave velocity in the liver is 2.01 m/s, corresponding ?? to a median liver stiffness of 12.1 kPa. ??The IQR/median value is 0.17. ?? This is indicative of a poor quality data set, and the estimated liver ?? stiffness may be unreliable. ?? Findings are indicative of a high elastography value suggestive of ?? compensated advanced chronic liver disease. ? REFERENCE: ?? Society of Radiologists in Ultrasound Liver Stiffness Thresholds (2019): ? LIVER STIFFNESS THRESHOLDS: ?? *Shear wave velocity less than 1.3 m/s (Liver Stiffness equal or less ?? than 5 kPa): ??High probability of being normal. ?? *Shear wave velocity less than 1.7 m/s (Liver Stiffness less than 9 ?? kPa): ??In the absence of other known clinical signs, rules out ?? compensated advanced chronic liver disease. ?? *Shear wave velocity between 1.7-2.1 m/s (Liver Stiffness 9-13 kPa): ? Suggestive of compensated advanced chronic liver disease but need ?? further test for confirmation. ?? *Shear wave velocity between 2.1-2.4 m/s (Liver Stiffness 13-17 kPa): ? Rules in compensated advanced chronic liver disease. ?? *Shear wave velocity ??greater than 2.4 m/s (Liver Stiffness over 17 ?? kPa): ??Suggestive of clinically significant portal hypertension. ? QUALITY OF DATA SET: ?? *IQR/Median value equal or less than 0.15 implies a quality data set. ?? *IQR/Median value over 0.15 implies a poor quality data set. ? SIGNIFICANT CHANGE FROM PRIOR EXAM: ?? Significant change if liver stiffness measurement is 10% or greater ?? from prior exam. ? OTHER CONSIDERATIONS: ?? The stage of liver fibrosis may be overestimated in the setting of ?? acute hepatitis, liver inflammation, elevated liver function tests, ?? hepatic vascular congestion, obstructive cholestasis, non-fasting ?? state, and infiltrative diseases such as amyloidosis and lymphoma. ??In ?? some patients with NAFLD, the liver stiffness thresholds for ?? compensated advanced chronic liver disease may be lower. ??In causes ?? other than viral hepatitis and NAFLD, liver stiffness thresholds are ?? not well established. ? Electronically signed by: ??Salvador Pompa MD ??08/25/2024 10:11 AM EDT ?? RP ? Dictated By: ?Salvador Pompa MD ? Signed By: ?<Electronically signed by Salvador Pompa MD in OV> ?08/25/24 1011 ? DD/ 0913 ? TD/TT: 08/25/24 0938 ? House Servant: ? Procedure Note Donotuseinterpreter, Image - 08/25/[address] [address] Ultrasound Report Signed Patient: Tabitha Dunbar#: [id number] : 2Acct:[id number] Age/Sex: 63 / FADM Date: 08/25/24 Loc: HO.US Attending Dr: Bekah Muñoz SHOT POLISHER- Ordering Physician: Bekah Muñoz-DEMETRIO Date of Service: 08/25/24 Procedure(s): US abdomen lua w elastography Accession Number(s): [id number] cc: To Forrest MD; Bekah Muñoz [employer] [facility]ER-DEMETRIO EXAMINATION: US ABDOMEN LIMITED WITH LIVER ELASTOGRAPHY HISTORY: K76.0 - Fatty (change of) liver, not elsewhere classified TECHNIQUE: Real-time grayscale ultrasound imaging of the right upper quadrant was performed and images were reviewed. COMPARISON: Comparison is made with the prior examination dated 03/02/2024. FINDINGS: Liver: The right lobe of the liver measures 16.5 cm in size. The left lobe of the liver measures 9.4 cm in size. The liver demonstrates coarsened echotexture. No focal mass or intrahepatic biliary ductal dilatation is identified. There is normal hepatopedal flow in the portal vein. Ultrasound elastography of the liver was performed with 10 separate measurements of the liver parenchyma with the patient in the supine position. Measurements were obtained approximately 2 cm below Arti's capsule and perpendicular to the capsule. Images are of satisfactory quality. The median shear wave velocity is 2.01 m/s (previously 1.98 m/s). The interquartile range/median (IQR/median) is 0.17. Gallbladder and biliary tree: The gallbladder is distended, without evidence of calculi, wall thickening, or pericholecystic fluid. There is no sonographic Copeland sign. The common bile duct is normal in caliber measuring 3 mm. Right Kidney: The right kidney measures 10.6 cm in length. The right kidney is unremarkable, without evidence of masses, hydronephrosis, or calculi. Pancreas: The pancreatic head, neck, and body are unremarkable. The pancreatic tail is obscured by bowel gas. Abdominal aorta and inferior vena cava: The visualized portions of the abdominal aorta and inferior vena cava are normal in caliber. There is no free fluid in the right upper quadrant. US/US abdomen lua w elastography IMPRESSION: Hepatomegaly and coarsened hepatic echotexture. The median shear wave velocity in the liver is 2.01 m/s, corresponding to a median liver stiffness of 12.1 kPa. The IQR/median value is 0.17. This is indicative of a poor quality data set, and the estimated liver stiffness may be unreliable. Findings are indicative of a high elastography value suggestive of compensated advanced chronic liver disease. REFERENCE: Society of Radiologists in Ultrasound Liver Stiffness Thresholds (2019): LIVER STIFFNESS THRESHOLDS: *Shear wave velocity less than 1.3 m/s (Liver Stiffness equal or less than 5 kPa): High probability of being normal. *Shear wave velocity less than 1.7 m/s (Liver Stiffness less than 9 kPa): In the absence of other known clinical signs, rules out compensated advanced chronic liver disease. *Shear wave velocity between 1.7-2.1 m/s (Liver Stiffness 9-13 kPa): Suggestive of compensated advanced chronic liver disease but need further test for confirmation. *Shear wave velocity between 2.1-2.4 m/s (Liver Stiffness 13-17 kPa): Rules in compensated advanced chronic liver disease. *Shear wave velocity greater than 2.4 m/s (Liver Stiffness over 17 kPa): Suggestive of clinically significant portal hypertension. QUALITY OF DATA SET: *IQR/Median value equal or less than 0.15 implies a quality data set. *IQR/Median value over 0.15 implies a poor quality data set. SIGNIFICANT CHANGE FROM PRIOR EXAM: Significant change if liver stiffness measurement is 10% or greater from prior exam. OTHER CONSIDERATIONS: The stage of liver fibrosis may be overestimated in the setting of acute hepatitis, liver inflammation, elevated liver function tests, hepatic vascular congestion, obstructive cholestasis, non-fasting state, and infiltrative diseases such as amyloidosis and lymphoma. In some patients with NAFLD, the liver stiffness thresholds for compensated advanced chronic liver disease may be lower. In causes other than viral hepatitis and NAFLD, liver stiffness thresholds are not well established. Electronically signed by: Salvador Pompa MD 08/25/2024 10:11 AM EDT RP Dictated By: Salvador Pompa MD Signed By: <Electronically signed by Salvador Pompa MD in OV> 08/25/24 1011 DD/ 0913 TD/TT: 08/25/24 0938 House Servant: us [facility] External Provider IMG US PROCEDURES Final Result * TSH with Reflex to Free T4 (08/24/2024 11:17 AM EDT) TSH reflex Free T4 1.23 0.32 - 4.0 uIU/mL [facility] Blood Venous blood specimen / Unknown 08/24/2024 11:17 AM EDT 08/24/2024 1:35 PM EDT us To Baires MD LAB BLOOD ORDERABLES Final Result Performing Organization Address City/State/[facility] Co de Phone Number [facility] [address] [place] [phone] * (ABNORMAL) Liver Fibrosis (HCV), FibroTest-ActiTest Panel (08/24/2024 11:17 AM EDT) Liver Fibrosis Score 0.47 [facility] Liver Fibrosis Stage F1-F2 [facility] Liver Fibrosis Interpretation SEE NOTE [facility] Comment:minimal fibrosisFibr o Test Score (f) Metavir Score f>=0 and f<=0.21 : F0 (no fibrosis)f>0.21 and f<=0.27 : F0-F1 (no fibrosis)f>0.27 and f<=0.31 : F1 (minimal fibrosis)f>0.31 and f<=0.48 : F1-F2 (minimal fibrosis)f>0.48 and f<=0.58 : F2 (moderate fibrosis)f>0.58 and f<=0.72 : F3 (advanced fibrosis)f>0.72 and f<=0.74 : F3-F4 (advanced fibrosis)f>0.74 and f<=1.00 : F4 (severe fibrosis) Nec Inflam Act Score 0.37 [facility] Nec Inflam Act Grade A1-A2 [facility] Nec Inflam Act Interpretation SEE NOTE [facility] Comment:minimal activityActi Test Score (a) Metavir Score a>=0 and a<=0.17 : A0 (no activity)a>0.17 and a<=0.29 : A0-A1 (no activity)a>0.29 and a<=0.36 : A1 (minimal activity)a>0.36 and a<=0.52 : A1-A2 (minimal activity)a>0.52 and a<=0.60 : A2 (significant activity)a>0.60 and a<=0.62 : A2-A3 (significant activity)a>0.62 and a<=1.00 : A3 (severe activity) XIG-Lvytb-7-Macroglo bulin 355(A) 106 - 279 mg/dL [facility] FIB-Haptoglobin 99 43 - 212 mg/dL [facility] FIB-Apolipoprotein A1 193 101 - 198 mg/dL [facility] FIB-Total Bilirubin 0.5 0.2 - 1.2 mg/dL [facility] FIB-GGT 65 3 - 65 U/L [facility] FIB-ALT 54(A) 6 - 29 U/L [facility] Reference ID [id number] [facility] Footnote SEE NOTE [facility] Comment: The reliability of results is dependent on compliance withthe preanalytical and analytical conditions recommended byBio[employer]ict[employer]. The tests have to be deferred for: acutehemolysis, acute hepatitis, acute inflammation, extrahepatic cholestasis. The advice of a specialist should besought for interpretation in chronic hemolysis and Gilbert'ssyndrome. The test interpretation is not validated in livertransplant patients. Isolated extreme values of one of thecomponents should lead to caution in interpreting theresults. In case of discordance between a biopsy result junior test, it is recommended to seek the advice of aspecialist. The causes of these discordances could be due toa flaw of the test or to a flaw in the biopsy: i.e. a liverbiopsy has a 33% variability rate for one fibrosis stage.FibroTest is interpretable for chronic hepatitis B and C,alcoholic and non alcoholic steatosis. ActiTest isinterpretable for chronic hepatitis B and C.The performance characteristics have been determined by[employer] [facility]. Ithas not been cleared or approved by the U.S. Food and DrugAdministration. Performance characteristics refer to theanalytical performance of the test.[place], [employer], the associated logo, [employer] and all associated [employer] chopra are theregistered trademarks of [employer]. All third partymarks - (R) and (TM) - are the property of their respectiveowners. (C) 7020-1371 [employer]. Allrights reserved.THIS TEST WAS PERFORMED AT:[facility] [id number] [facility], [place] ??[id number] SALEH MD,PHD,ENID 08/24/2024 11:1 7 AM EDT 08/24/2024 1:35 PM EDT Generic External Data Provider LAB BLOOD ORDERAB LES Final Result [facility] [address] [place] [phone] * Albumin, Random Urine W/Creatinine (08/24/2024 11:17 AM EDT) Creatinine, Urine 42.17 mg/dL [facility] Microalbumin Urine 7.0 mg/L [facility] Microalbum Creatinine Ratio Ur 16.5 <30 ug/mg cr [facility] Comment:Albumin/Creatinine R atio Reference Ranges: Normal: < 30 ug/mg creatinine Microalbuminuria: 30 - 300 ug/mg creatinineClinical Albuminuria: > 300 ug/mg creatinine Urine (Urine, Random) 08/24/2024 11:17 AM EDT 08/24/2024 1:03 PM EDT us To Baires MD LAB URINE ORDERABLES Final Result Performing Organization Address [facility] Co de Phone Number [facility] [address] [place] [phone] * Actin (Smooth Muscle) Antibody (IgG) (08/24/2024 11:17 AM EDT) Smooth Muscle Antibody <20 <20 U [facility] Comment:Reference Range: <20 U: Negative>or=20 U: PositiveAntibodies recognizing actin are the main componentof smooth muscle antibodies associated with auto- immune liver disease. Actin antibodies are found inapproximately 75% of patients with autoimmunehepatitis (AIH) type 1, approximately 65% of patientswith autoimmune cholangitis, approximately 30% ofpatients with primary biliary cirrhosis andapproximately 2% of healthy controls. High values areclosely correlated with AIH type 1.THIS TEST WAS PERFORMED AT:[id number] [place] [address]KISJEJDVINAYAK SHEPHERD MD,PHD 08/24/2024 11:1 7 AM EDT 08/24/2024 1:35 PM EDT Generic External Data Provider LAB BLOOD ORDERAB LES Final Result Performing Organization Address [facility] Co de Phone Number [facility] [address] [place] [phone] * Tissue Transglutaminase Antibody, IgA (08/24/2024 11:17 AM EDT) Transglutaminase IgA <1.0 U/mL [facility] Comment:Value Interpretation ----- <15.0 Antibody not detected> or = 15.0 Antibody detectedTHIS TEST WAS PERFORMED AT:[facility] [address] [id number] JULES MD 08/24/2024 11:1 7 AM EDT 08/24/2024 1:35 PM EDT Generic External Data Provider LAB BLOOD ORDERAB LES Final Result Performing Organization Address [facility] Co de Phone Number [facility] [address] [place] [phone] * Alpha-Fetoprotein, Tumor Marker (08/24/2024 11:17 AM EDT) Alpha Fetoprotein 5.5 ng/mL [facility] Comment:Reference Range: <6. 1The use of AFP as a tumor marker in females is not recommended.This test was performed using the [employer] S.Achemiluminescent method. Values obtained fromdifferent assay methods cannot be usedinterchangeably. AFP levels, regardless ofvalue, should not be interpreted as absoluteevidence of the presence or absence of disease.THIS TEST WAS PERFORMED AT:[facility] [place] [phone] JULES MD 08/24/2024 11:1 7 AM EDT 08/24/2024 1:35 PM EDT [facility] Data Provider LAB BLOOD ORDERAB LES Final Result Performing Organization Address [facility] Number [facility] [address] [place] [phone] * Mitochondrial Antibody with Reflex to Titer (08/24/2024 11:17 AM EDT) Mitochondrial Antibodies NEGATIVE NEGATIVE [facility] Comment:THIS TEST WAS PERFOR MED AT:[facility] [place] [phone] JULES MD Mitochondrial Ab Titer TNP [facility] 08/24/2024 11:1 7 AM EDT 08/24/2024 1:35 PM EDT Generic External Data Provider LAB BLOOD ORDERAB LES Final Result Performing Organization Address City/[facility] Co de Phone Number [facility] [address] [place] [phone] * Hepatic Function Panel (08/24/2024 11:17 AM EDT) Bilirubin, Direct 0.2 0.0 - 0.5 mg/dL [facility] 08/24/2024 11:1 7 AM EDT 08/24/2024 1:35 PM EDT us Generic External Data Provider LAB BLOOD ORDERAB LES Final Result [facility] [address] [place] [phone] * Lipid Panel, Standard (08/24/2024 11:17 AM EDT) Triglycerides 71 <150 mg/dL [facility] Comment:Desirable Triglyceri de: less than 150 mg/dLBorderline High Triglyceride 150-199 mg/dLHigh Triglyceride: 200-499 mg/dLVery High Triglyceride: greater than or equal to 5OO mg/dL Cholesterol 152 <200 mg/dL [facility] Comment:Desirable Cholestero l: less than 200 mg/dLBorderline High Cholesterol: 200-239 mg/dLHigh Cholesterol: greater than 239 mg/dL LDL Cholesterol Calculated 80 <100 mg/dL [facility] Comment:Desirable LDL: less than 100 mg/dLNear Optimal/Above Optimal LDL: 110- 129 mg/dLBorderline High LDL: 130-159 mg/dLHigh LDL: 160-189 mg/dLVery High LDL: greater than or equal to 190 mg/dL HDL Cholesterol 58 >40 mg/dL [facility] Comment:Desirable HDL: great er than 40 mg/dL Note: This HDL assay may give artificially low results in patients with liver disease. Blood Venous blood specimen / Unknown 08/24/2024 11:17 AM EDT 08/24/2024 1:35 PM EDT us To Baires MD LAB BLOOD ORDERABLES Final Result [facility] [address] [place] [phone] * (ABNORMAL) Comprehensive Metabolic Panel (08/24/2024 11:17 AM EDT) Sodium 139 135 - 145 mmol/L [facility] Potassium 3.7 3.3 - 5.1 mmol/L [facility] Chloride 101 96 - 108 mmol/L [facility] Carbon Dioxide 28 22 - 29 mmol/L [facility] Anion Gap 14 12 - 20 [facility] Urea Nitrogen (BUN) 19(H) 9 - 16 mg/dL [facility] Creatinine, Serum 0.71 0.5 - 1.4 mg/dL [facility] Estimated Glomerular Filt Rate >60 [facility] Comment:Chronic Kidney Disea se: Estimated GFR < 60 mL/min/1.39c1Fnocxv Kidney Disease: Estimated GFR < 15 mL/min/1.73m2 Glucose 140(H) 60 - 115 mg/dL [facility] Calcium 10.2 8.4 - 10.2 mg/dL [facility] Bilirubin, Total 0.6 0.0 - 1.0 mg/dL [facility] Aspartate Amino Transferase 52(H) 5 - 31 U/L [facility] Alanine Aminotransferase 77(H) 0 - 31 U/L [facility] Total Protein 9.3(H) 6.5 - 8.0 g/dL [facility] Albumin Level 4.9 3.5 - 5.0 g/dL [facility] Alkaline Phosphatase 121(H) 39 - 117 U/L [facility] Blood Venous blood specimen / Unknown 08/24/2024 11:17 AM EDT 08/24/2024 1:35 PM EDT us To Baires MD LAB BLOOD ORDERABLES Final Result [facility] [address] [place] [phone] * POCT HGB A1C (08/24/2024 10:41 AM EDT) Hemoglobin A1C 6.0 4.0 - 6.0 % QC Media Lot # [id number] Lot# Expiration Date [id number] Blood 08/24/2024 10:4 1 AM EDT To Baires MD POINT OF CARE TEST EN TER/EDIT ORDERABLES Final Result * POCT Glucose (08/24/2024 10:39 AM EDT) Glucose Blood, POC 157 60 - 200 mg/dL [employer] Lot # [id number] Lot# Expiration Date [id number] Blood Capillary blood specimen / Unknown 08/24/2024 10:39 AM EDT To Baires MD POINT OF CARE TEST EN TER/EDIT ORDERABLES Final Result * BI Mammogram Screening Tomosynthesis Bilateral (06/09/2024 12:30 PM EST) Anatomical Region Laterality Modality Breast Bilateral Mammography 06/09/2024 12:3 0 PM EST Narrative 06/21/2024 1:44 PM EST ? [facility] ? [address] [facility] ?[place] [address] ? Mammography Report ? Signed ? Patient: Odalys Dunbar ?MR#: ?? [id number] ? : 1960 ?Acct:[id number] ? Age/Sex: 63 / F ?ADM Date: 12/27/24 ? Loc: HO.MAMMO ? Attending : To Forrest MD ? Ordering Physician: To Forrest MD ?Resu ?? lts: 2Benign Findings ? Date of Service: 06/09/24 ?Follow Up: 1 Year From Orig ?? inal Mammogram ? Procedure(s): MM tomosynthesis screening BI ?? Accession Number(s): [id number] ? cc: To Forrest MD ? EXAMINATION: [...] DD/ 1230 ? TD/TT: 06/09/24 1244 ? House Servant: ? Procedure Note Randal, Image - [facility] [address] [place] [address] Mammography Report Signed Patient: Tabitha Dunbar#: [id number] : 2Acct:[id number] Age/Sex: 63 / FADM Date: 06/09/24 Loc: OSMIN.MAMMO Attending Dr: To Forrest MD Ordering Physician: To Forrest MDResu lts: 2Benign Findings Date of Service: 06/09/24Follow Up: 1 Year From Orig inal Mammogram Procedure(s): MM tomosynthesis screening BI Accession Number(s): [id number] cc: To Forrest MD EXAMINATION: MM SCREENING [...] by: Maryellen Ron DO 06/21/2024 01:41 PM [facility] Dictated By: Maryellen Ron DO Signed By: <Electronically signed by Maryellen Ron DO in OV> 06/21/24 1341 DD/ 1230 TD/TT: 06/09/24 1244 House Servant: us To Baires MD IMG BI PROCEDURES Rajinder marta Result - Final * Hepatitis Panel, General (01/25/2024 12:00 AM EDT) Hepatitis A IgM Nonreactive Nonreactive [facility] Comment:IgM antibodies to BOLTON V not detected; does not exclude earlyacute or recovered HAV infection. ~Hepatitis B Surface Antibody REACTIVE Nonreactive [facility] Comment:REACTIVE: > 11.99 mI U/mL Hepatitis B Core Antibody Nonreactive Nonreactive [facility] Hepatitis C Antibody Nonreactive Nonreactive [facility] Comment:Antibodies to HCV no t detected; does not exclude early acuteHCV infection. Hepatitis B Surface Ag Negative Negative [facility] 01/25/2024 01/25/2024 us Generic External Data Provider LAB BLOOD ORDERAB LES Final Result [facility] [address] [place] [phone] * HIV-1/2 Antigen and Antibodies, Fourth Generation, with Reflexes (01/25/2024 12:00 AM EDT) HIV AB/AG Nonreactive Nonreactive [facility] Comment:HIV-1 p24 Ag and/or HIV-1/HIV-2 Ab not detected.A test result that is nonreactive does not exclude thepossibility of exposure to or infection with HIV-1 and/orHIV-2. Nonreactive results in this assay for individualswith prior exposure to HIV-1 and/or HIV-2 may be due toantigen and antibody levels that are below the limit ofdetection of this assay.[employer] HIV Ag/Ab Combo assay result andsupplemental assay results should be interpreted inconjunction with the patient's clinical presentation,history and other laboratory results. If the results areinconsistent with clinical evidence, additional testing issuggested to confirm the result. 01/25/2024 01/25/2024 us Generic External Data Provider LAB BLOOD ORDERAB LES Final Result [facility] [address] [place] [phone] [phone] * Cologuard?? colon cancer screening (08/30/2023 11:00 AM EDT) Cologuard Result Negative Negative 09/03/19 6:39 PM EDT [facility] (CLIA #:[id number]) Comment: NEGATIVE TEST RESULT. A negative Cologuard [...] cancer. ??Following a negative Cologuard result, the [place] [employer] and U.S. Multi-Society Task Force screening guidelines recommend a Cologuard re-screening interval of 3 years. References: [place] [employer] Guideline for Colorectal Cancer Screening: https://www.cancer.org/cancer/rjkcd-eolflp-izkavz/zekqqkzec-ggogahkdz-oykljml/ac s-rec ommendations.html.; Jasbir DK, Cyn CR, Petra PérezK, Colorectal Cancer Screening: Recommendations for Physicians and Patients from the U.S. Multi-Society Task Force on Colorectal Cancer Screening , Am J Gastroenterology 2017; 112:0237-0369. TEST DESCRIPTION: Composite algorithmic analysis of stool [...] screened with both Cologuard and colonoscopy. (Suzi Walton. et al, N Engl J Med 2014;370(14):3062-0447.) Cologuard may produce a false negative or false positive result (no colorectal cancer or precancerous polyp present at colonoscopy follow up). A negative Cologuard test result does not guarantee the absence of CRC or advanced adenoma (pre-cancer). The current Cologuard screening interval is every 3 years. ([place] [employer] and U.S. Multi-Society Task Force). Cologuard performance data in a 10,000 patient pivotal study using colonoscopy as the reference method can be accessed at the following location: www.[facility].com/results. Additional description of the Cologuard test process, warnings and precautions can be found at www.cologuard.com. Stool specimen (specimen) 08/30/2023 11:00 AM EDT 08/31/2023 1:56 PM EDT us To Baires MD LAB MOLECULAR DIAGNOS TICS ORDERABLES Final Result [facility] (CLIA #:[id number]) [place] [address], * THINPREP PAP (03/05/2021 3:51 PM EDT) [...] historic and ?? current clinical information. ?? Forester Silviculture : SEE COMMENT [facility] Comment: HJP, CT(ASCP) CT screening location: [address] ??[phone] Interpretation/R esult: Negative for intraepithelial lesion or malignancy. [facility] LMP: NONE [facility] PATHOLOGIST: SEE COMMENT [facility] Comment: Alex Cornejo M.D./M.S., Board Certified in Anatomic Pathology and Board Eligible Cytopathology (electronic signature) Consulting Pathologist [facility] [address] [place] [address] ??[phone] Prev. BX: NONE [facility]EN [facility] Prev. PAP: 2015 ASCUS, HPV- FO [facility] SOURCE: None given [facility] Statement Of Adequacy: SEE COMMENT [facility] Comment: Satisfactory for evaluation. Endocervical/transformation zone component absent. 03/05/2021 3:51 PM EDT Kristina Huang CNM LAB PATHOLOGY ORDERABLES Final Result [facility] [address] [place], [place] [address] * (ABNORMAL) HPV mRNA E6/E7 (03/05/2021 3:51 PM EDT) HPV nRNA E6/E7 Detected (A) Not Detected [facility] Comment: Methodology: Instruments Sales Representative-Mediated Amplification This assay detects E6/E7 viral messenger RNA (mRNA) from 14 high-risk HPV types (16,18,31,33,35,39,45,51,52,56,58,59,66,68). ? The analytical performance characteristics of this assay have been determined by [employer]. The modifications have not been cleared or approved by the FDA. This assay has been validated pursuant to the CLIA regulations and is used for clinical purposes. ?? For additional information, please refer to http://education.Via6/faq/YQD977b9 (This link if provided for information/ educational purposes only.) 03/05/2021 3:51 PM EDT us Kristina Huang CNM LAB BLOOD ORDERABLES Kenia rob Result [facility] [address] from Last 3 Months or Most Recently Relevant to Health Maintenance Insurance [facility] Care Teams Inside Plant Supervisor Relationship Specialty Start Date End Date To Connelly MD [address] [place] [phone] PCP - General Internal Medicine 09/11/15
--- OUTSIDE RECORDS SUMMARY | 2024-09-19 11:01 | XMS_ITS | Encounter Summary ---
Author Organization [employer] Address [address] [facility] 7t [place] [address] Care Team Providers Care Grocery Shopper Name Role Phone To Connelly MD Primary Care Provide r Reason for Visit * Reason Comments Med Change Request Encounter Details Date Type Department Care Team ([facility] st Contact Info) Description 07/12/2023 Refill [facility] [address] [place], [place] [phone] Wanda Smith FNP [address] [place], [place] [phone] Social History Tobacco Use Types Packs/Day Years [...] No answer. LVM to call back on [phone]. Can you contact patient and see what [...] documented as of this encounter Care Teams Grocery Shopper Relationship Specialty Start Date End Date To Connelly MD [address] [place] [phone] PCP - General Internal Medicine 09/11/15 documented as of this encounter
--- OUTSIDE RECORDS SUMMARY | 2024-09-19 11:01 | XMS_ITS | Encounter Summary ---
Author Organization [employer] Address 75 [facility] 7t [place] [address] Care Team Providers Care Car Customizer Name Role Phone To Connelly MD Primary Care Provide r Reason for Visit * Reason Comments Med Refill Encounter Details Date Type Department Care Team ([facility] st Contact Info) Description 04/11/2023 Refill [facility] [address] [place], [place] [phone] To Connelly MD [address] [place], [place] [phone] Essential hypertension Social History Tobacco Use Types Packs/Day Years Used Date Smoking Tobacco: Never Passive Smoke Exposure: Never Smokeless Tobacco: Never Depression Answer Date Recorded Patient Health Questionnaire-9 Score 3 11/12/2022 Housing Stability Answer Date Recorded What is your housing situation today? I have demetrio margarito 04/11/[address] you li [...] documented as of this encounter Care Teams Car Customizer Relationship Specialty Start Date End Date To Connelly MD [address] [place] [address] PCP - General Internal Medicine 09/11/15 documented as of this encounter
--- OUTSIDE RECORDS SUMMARY | 2024-09-19 11:01 | XMS_ITS | Encounter Summary ---
Author Organization [employer] Address [address] [facility] 7t [place] [address] Care Team Providers Care Data Center Technician Name Role Phone To Connelly MD Primary Care Provide r Reason for Visit * Reason Comments Med Refill Encounter Details Date Type Department Care Team ([facility] st Contact Info) Description 05/16/2024 Refill [facility] MEDICINE [address] [place], [place] [phone] Deena Cuevas MD [address] [place], [place] [phone] Essential hypertension Social History Tobacco Use Types [...] documented as of this encounter Care Teams Data Center Technician Relationship Specialty Start Date End Date To Connelly MD [address] [place] [address] PCP - General Internal Medicine 09/11/15 documented as of this encounter
--- OUTSIDE RECORDS SUMMARY | 2024-09-19 11:01 | XMS_ITS | Encounter Summary ---
Author Organization [employer] Address [address] [facility] 7t [place] [address] Care Team Providers Care Mortar Carrier Name Role Phone To Connelly MD Primary Care Provide r Reason for Visit * Reason Comments Med Refill Encounter Details Date Type Department Care Team ([facility] st Contact Info) Description 09/14/2024 Refill [facility] [address] [place], [place] [phone] To Connelly MD [address] [place], [place] [phone] Type 2 diabetes mellitus with hyperglycemia, with long-term current use of insulin ([facility]) Social History Tobacco Use Types Packs/Day Years [...] as of this encounter Visit Diagnoses Diagnosis Type 2 diabetes mellitus with hyperglycemia, with long-term current use of insulin ([facility]) documented in this encounter Additional Health Concerns Assessment Noted Time PHQ-9 Depression Total Score: 5 11/16/19 24 2:25 PM EDT documented as of this encounter Care Teams Mortar Carrier Relationship Specialty Start Date End Date To Connelly MD [address] [place] [address] PCP - General Internal Medicine 09/11/15 documented as of this encounter
== END 2024-09-19 10:43 | disposition home or self-care (01) ==
LOC: HO.HWS 09:40
PROVIDERS: PCP Internal Medicine; Visit Provider Obstetrics & Gynecology
DX: Z01.419 Encounter for gynecological examination (general) (routine) without abnormal findings (principal); N90.60 Unspecified hypertrophy of vulva
CPT/HCPCS: 99396; 99459

== ENCOUNTER 2024-12-21 15:09 | Outpatient (REF) | payer OTHER, SELFPAY ==
--- NOTE | ~2024-12-21 | XR_ITS ---
EXAMINATION: XR FOOT 3 OR MORE VIEWS RIGHT HISTORY: right great toe pain rule out fracture COMPARISON: There are no prior studies available for comparison. FINDINGS: Three views of the right foot are submitted. Osseous mineralization is normal. There is no fracture or dislocation. The joint spaces are preserved. There are calcaneal spurs at the plantar aspect and at the insertion of the Achilles tendon. The soft tissues are unremarkable. XR/XR foot RT min 3V IMPRESSION: No evidence of fracture of the right foot. Electronically signed by: Salvador Pompa MD 12/22/2024 07:28 AM EDT
--- OUTSIDE RECORDS SUMMARY | 2024-12-21 15:12 | XMS_ITS | Encounter Summary ---
Author Organization [employer] Address [address] [facility] [address] [place] [address] Care Team Providers Care Piano Teacher Name Role Phone To Connelly MD Primary Care Provide r Reason for Visit * Reason Comments Med Refill Encounter Details Date Type Department Care Team ([facility] st Contact Info) Description 04/11/[address] [facility] [address] [place], [place] [phone] To Connelly MD [address] [place], [place] [phone] Essential hypertension Social History Tobacco Use Types [...] documented as of this encounter Care Teams Piano Teacher Relationship Specialty Start Date End Date To Connelly MD [address] [place] [address] PCP - General Internal Medicine 09/11/15 documented as of this encounter
== END 2024-12-21 15:10 | disposition home or self-care (01) ==
LOC: HO.HHCL 15:09
PROVIDERS: PCP Internal Medicine; Visit Provider Internal Medicine
DX: M79.674 Pain in right toe(s) (principal)
CPT/HCPCS: 73630

== ENCOUNTER → 2024-12-21 15:15 | Outpatient (BNV) | payer OTHER, SELFPAY | PROVIDERS: PCP Internal Medicine; Visit Provider Radiology Diagnostic Radiology | DX: M79.674 Pain in right toe(s) (principal) | CPT/HCPCS: 73630 ==